=== PATIENT | male | born 1995 | race Caucasian/White ===

== ENCOUNTER 2016-10-18 10:32 | Emergency (ER) | payer MEDICAID, OTHER ==
[2016-10-18] MEDS ORDERED: DEXAMETHASONE 10 MG/ML VIAL PO STA (12:12)
== END 2016-10-18 12:25 | disposition home or self-care (01) ==
DX: M54.12 Radiculopathy, cervical region (principal); R03.0 Elevated blood-pressure reading, without diagnosis of hypertension; F17.200 Nicotine dependence, unspecified, uncomplicated

== ENCOUNTER 2016-12-15 11:11 | Emergency (ER) | payer MEDICAID ==
[2016-12-15 11:17] VITALS: BP 136/83
--- NOTE | 2016-12-15 12:15 | ED Physician Documentation ---
PD HPI HEENT - Stated complaint Stated Complaint: DENTAL PAIN - Chief complaint Chief Complaint: Heent - History obtained from History obtained from: Patient - History of Present Illness Timing - onset: Other (He has several teeth that are bothering him, the worst of which is the last molar, on the left maxilla. He denies facial swelling or fevers, does have a dental appointment but not for a few months.) Review of Systems Constitutional: denies: Fever, Chills Nose: denies: Rhinorrhea / runny nose, Congestion Cardiac: denies: Chest pain / pressure, Palpitations PD PAST MEDICAL HISTORY - Past Medical History Past Medical History: No - Past Surgical History Past Surgical History: No - Present Medications Home Medications: Ambulatory Orders Medication Instructions Recorded Confirmed Clindamycin [Cleocin] 300 mg PO Q6H 10 Days 12/15/16 HYDROcod/ACETAM 5/325 [[place] 5/325] 1 - 2 ea PO Q6H PRN #15 tablet 12/15/16 Ibuprofen [Motrin] 800 mg PO Q8H PRN #30 tablet 12/15/16 - Allergies Allergies/Adverse Reactions: Allergies Allergy/AdvReac Type Severity Reaction Status Date / Time No Known Drug Allergies Allergy Verified 10/18/16 10:35 - Social History Does the pt smoke?: Yes Smoking Status: Current every day smoker Does the pt drink ETOH?: Yes Does the pt have substance abuse?: No - Immunizations Immunizations are current?: Yes PD ED PE NORMAL - Vitals Vital signs reviewed: Yes - General General: Alert and oriented X 3, No acute distress - HEENT HEENT: Other (Generally poor but not terrible dentition, large cavities in the last maxillary molars on both sides without facial swelling or trismus.) - Neck Neck: Supple, no meningeal sign, No bony TTP - Neuro Neuro: Alert and oriented X 3, Normal speech - Psych Psych: Normal mood, Normal affect Results - Vitals Vitals: Vital Signs - 24 hr 12/15/16 11:14 Temperature 36.5 C Heart Rate 93 Respiratory 18 Rate Blood Pressure 136/83 H O2 Saturation 98 Oxygen O2 Source Room air PD MEDICAL DECISION MAKING - ED course ED course: The [place] prescription monitoring program was queried with regard to this patient. No concerning findings were found. Departure - Departure Disposition: 01 Home, Self Care Clinical Impression: Pain due to dental caries Condition: Good Record reviewed to determine appropriate education?: Yes Instructions: ED Tooth Pain Prescriptions: Clindamycin [Cleocin] 300 mg PO Q6H 10 Days Ibuprofen [Motrin] 800 mg PO Q8H PRN #30 tablet PRN Reason: PAIN &/OR FEVER HYDROcod/ACETAM 5/325 [[place] 5/325] 1 - 2 ea PO Q6H PRN #15 tablet PRN Reason: Pain Comments: It is very important that she follow-up with a dentist. When it comes to dental problems like yours, the emergency department can only offer a short- term solution to your long-term problem. A couple of low cost options for dental care include: [facility] in [place], calls [phone] for an appointment Or [facility] in [place], call [phone] for an appointment. Your blood pressure was elevated today on check into the emergency department. This does not mean that you have hypertension, it is a common phenomenon to come to the emergency department and have elevated blood pressure. I recommend that she see her primary care physician within the week to have it rechecked when you are feeling better. Do not drink or drive while taking narcotic pain medication. Note that many narcotic pain relievers also contain Tylenol/acetaminophen. Please ensure that your total dose of acetaminophen from all sources does not exceed 3 g (3000 mg) per day. You may get constipated while on this medication. Take a stool softener such as Colace twice a day while you are on it. Also add an [id number] laxative such as senna or MiraLAX on any day that you do not have a bowel movement. If you received a narcotic pain medication or sedative while in the emergency department, do not drive for the next 24 hours.
== END 2016-12-15 12:23 | disposition home or self-care (01) ==
LOC: ED 11:11
DX: K02.9 Dental caries, unspecified (principal); R03.0 Elevated blood-pressure reading, without diagnosis of hypertension
CPT/HCPCS: 99283

== ENCOUNTER 2017-06-17 17:20 | Emergency (ER) | payer MEDICAID ==
[2017-06-17] MEDS ORDERED: LIDOCAINE 1%-EPI 1:100000 20 ML MDV SUBQ STA (17:56)
--- NOTE | 2017-06-17 18:24 | ED Physician Documentation ---
History of Present Illness - Stated complaint Stated Complaint: ABCESS ON NECK - Chief complaint Chief Complaint: Wound - Additonal information Additional information: hx from pt 21 healthy male abscess R shoulder per pt waxes and wanes but never infected before Review of Systems Skin: reports: Lesions Immunocompromised: denies: Immunocompromised PD PAST MEDICAL HISTORY - Past Surgical History Past Surgical History: No - Present Medications Home Medications: Ambulatory Orders Medication Instructions Recorded Confirmed HYDROcod/ACETAM 5/325 [[place] 5/325] 1 - 2 ea PO Q6H PRN #15 tablet 12/15/1607/04 Ibuprofen [Motrin] 800 mg PO Q8H PRN #30 tablet 12/15/16 06/17/17 Cephalexin [Keflex] 500 mg PO Q6H #28 capsule 06/17/17 - Allergies Allergies/Adverse Reactions: Allergies Allergy/AdvReac Type Severity Reaction Status Date / Time No Known Drug Allergies Allergy Verified 06/17/17 17:24 - Social History Does the pt smoke?: Yes Smoking Status: Current every day smoker Does the pt drink ETOH?: Yes Does the pt have substance abuse?: No - Immunizations Immunizations are current?: Yes PD ED PE NORMAL - Vitals Vital signs reviewed: Yes - Cardiac Cardiac: RRR - Respiratory Respiratory: No respiratory distress, Clear bilaterally - Derm Derm: Other (approx 4 cm diameter abscess R shoulder) Results - Vitals Vitals: Vital Signs - 24 hr 06/17/17 17:22 Temperature 36.3 C L Heart Rate 80 Respiratory 16 Rate Blood Pressure 132/81 H O2 Saturation 98 Oxygen O2 Source Room air Procedures - Abscess I&D (location) shoulder Preparation: Betadine, Lidocaine 1%, With epi Incision: Incised with scalpel, Purulent drainage (approx 10 cc), Loculations broken, Packed, Culture obtained Other: Pt tolerated well, Dressing applied, Antibiotic prescribed Departure - Departure Disposition: Home, Self Care Clinical Impression: Infected sebaceous cyst Condition: Good Instructions: ED Cyst Sebaceous Infec IandD Follow-Up: Jono Sanches MD [Provider Admit Priv/Credential] - (after the infection has cleared for definitive removal) Prescriptions: Cephalexin [Keflex] 500 mg PO Q6H #28 capsule Comments: Motrin and tylenol for the pain Lave the bandage on for 2 days. If the infection is better at that time (no more redness or drainage) then pull out the packing and put on a new bandaid. If the wound is still red and/or draining see your PMD or come back to the ER for a packing change. Take the antibiotics as prescribed Follow up with the surgeons when the infection has cleared to have the cyst removed all together
[2017-06-17 18:35] VITALS: BP 114/86
== END 2017-06-17 18:38 | disposition home or self-care (01) ==
LOC: ED 17:20
DX: L02.413 Cutaneous abscess of right upper limb (principal); L72.3 Sebaceous cyst; F17.200 Nicotine dependence, unspecified, uncomplicated
CPT/HCPCS: 10060; 87070; 87205; 99282; 99283

== ENCOUNTER 2017-06-19 12:26 | Emergency (ER) | payer MEDICAID ==
[2017-06-19 12:40] VITALS: BP 126/82
--- NOTE | 2017-06-19 13:11 | ED Physician Documentation ---
History of Present Illness - Stated complaint Stated Complaint: WOUND CHECK - Chief complaint Chief Complaint: Wound - Additonal information Additional information: hx from pt 21 m wound recheck s/p I7D abscess 2 days ago feels better throbbing pain last took apap yesterday declines motrin today on keflex Review of Systems Constitutional: denies: Fever Skin: reports: Lesions PD PAST MEDICAL HISTORY - Past Surgical History Past Surgical History: No - Present Medications Home Medications: Ambulatory Orders Medication Instructions Recorded Confirmed HYDROcod/ACETAM 5/325 [[place] 5/325] 1 - 2 ea PO Q6H PRN #15 tablet 12/15/1609/01 Ibuprofen [Motrin] 800 mg PO Q8H PRN #30 tablet 12/15/16 06/19/17 Cephalexin [Keflex] 500 mg PO Q6H #28 capsule 06/17/17 06/19/17 - Allergies Allergies/Adverse Reactions: Allergies Allergy/AdvReac Type Severity Reaction Status Date / Time No Known Drug Allergies Allergy Verified 06/17/17 17:24 - Social History Does the pt smoke?: Yes Smoking Status: Current every day smoker Does the pt drink ETOH?: Yes Does the pt have substance abuse?: No - Immunizations Immunizations are current?: Yes PD ED PE NORMAL - Vitals Vital signs reviewed: Yes - Derm Derm: Other (much imporroves, approx 25% redness and size of first visit, repacked and applied dressing) Results - Vitals Vitals: Vital Signs - 24 hr 06/19/17 12:37 Temperature 36.6 C Heart Rate 71 Respiratory 18 Rate Blood Pressure 126/82 H O2 Saturation 98 Oxygen O2 Source Room air Departure - Departure Disposition: Home, Self Care Clinical Impression: Infected sebaceous cyst Condition: Good Instructions: ED Abscess IandD Comments: The wound culture is still being finalized So continue the keflex for now - the ER staff will call you if the culture indicates a need to change treatment. In two days you can pull the packing out. If there is not further redness or drainage just finish the antibiotics If the redness and drainage persist come back to the ER for another packing change
== END 2017-06-19 13:22 | disposition home or self-care (01) ==
LOC: ED 12:26
DX: L72.3 Sebaceous cyst (principal); F17.200 Nicotine dependence, unspecified, uncomplicated
CPT/HCPCS: 99283

== ENCOUNTER 2017-06-21 17:02 | Emergency (ER) | payer MEDICAID | END 2017-06-21 17:50 | disposition left against medical advice (07) | LOC: ED 17:02 | DX: Z53.21 Procedure and treatment not carried out due to patient leaving prior to being seen by health care provider (principal) ==

== ENCOUNTER 2017-11-17 08:40 | Emergency (ER) | payer MEDICAID ==
[2017-11-17 08:52] VITALS: BP 151/93
[2017-11-17] MEDS ORDERED: DEXAMETHASONE 10 MG/ML VIAL PO STA (09:12)
[2017-11-17] MEDS ORDERED: AMOXICILLIN 250 MG CAPSULE PO STA (09:16)
[2017-11-17] MEDS ORDERED: oxyCOD/ACETAMIN 5 MG/325 MG TABLET PO STA (09:17)
--- NOTE | 2017-11-17 09:19 | ED Physician Documentation ---
History of Present Illness - Stated complaint Stated Complaint: TOOTH PX - Chief complaint Chief Complaint: Heent - Additonal information Additional information: hx from pt 22 male fracture right lower molar a week ago inc pain and swelling called [facility] and no scheduled appt until end november Review of Systems Constitutional: denies: Fever Throat: reports: Dental pain / toothache Immunocompromised: denies: Immunocompromised PD PAST MEDICAL HISTORY - Past Surgical History Past Surgical History: No - Present Medications Home Medications: Ambulatory Orders Medication Instructions Recorded Confirmed Amoxicillin 500 mg PO Q8H #30 capsule 11/17/17 Ibuprofen [Motrin] 400 mg PO Q6H PRN #30 tablet 11/17/17 - Allergies Allergies/Adverse Reactions: Allergies Allergy/AdvReac Type Severity Reaction Status Date / Time No Known Drug Allergies Allergy Verified 06/17/17 17:24 - Social History Does the pt smoke?: Yes Smoking Status: Current every day smoker Does the pt drink ETOH?: Yes Does the pt have substance abuse?: No - Immunizations Immunizations are current?: Yes PD ED PE NORMAL - Vitals Vital signs reviewed: Yes - HEENT HEENT: Other (R lower molars with prior fillings, second molar with ant lat fracture with some exposed dentin adjacent to the filling, some gum swelling but no focal abscess to drain, slinght right sded sublungua swelling but not extending to neck and tongue not elevated) - Neck Neck: Supple, no meningeal sign - Cardiac Cardiac: RRR, No murmur - Respiratory Respiratory: No respiratory distress Results - Vitals Vitals: Vital Signs - 24 hr 11/17/17 08:48 Temperature 36.8 C Heart Rate 90 Respiratory 16 Rate Blood Pressure 151/93 H O2 Saturation 98 Oxygen O2 Source Room air Departure - Departure Disposition: Home, Self Care Clinical Impression: Dental infection Condition: Good Instructions: ED Tooth Pain Prescriptions: Amoxicillin 500 mg PO Q8H #30 capsule Ibuprofen [Motrin] 400 mg PO Q6H PRN #30 tablet PRN Reason: Pain Comments: The broken tooth has now become infected and it is starting to cause swelling under the jaw We have given you steroids to decrease the swelling and started antibiotics. But this needs to be seen by dental this week . Otherwise the infection could spread under your tongue and down your neck and cause airway problems. Please call [facility] tomorrow morning and advise the clinic that the ER felt this was a serious infection that needed dental care before the end of the month - if they cant see you, perhaps they can tell you what other clinics might be able to see you more expeditiously Take the antibiotics as prescribed. We gave your percocet in the ER to help manage the pain until the antibiotics and steroids can start working. If you are worse, especially in there is more swelling under you jaw, please come back to the ER right away
== END 2017-11-17 09:32 | disposition home or self-care (01) ==
LOC: ED 08:40
DX: K04.7 Periapical abscess without sinus (principal); F17.200 Nicotine dependence, unspecified, uncomplicated
CPT/HCPCS: 99283; A9270

== ENCOUNTER 2017-11-18 15:05 | Emergency (ER) | payer MEDICAID ==
[2017-11-18] MEDS ORDERED: SODIUM CHLORIDE 0.9% 1,000 ML IV ONE (15:20)
[2017-11-18] MEDS ORDERED: CLINDAMYCIN 900 MG/50 ML 50 ML IV ONE (15:20)
[2017-11-18] MEDS ORDERED: MORPHINE 10 MG/ML VIAL IVP STA (15:20)
[2017-11-18 15:23] VITALS: BP 154/101
--- NOTE | 2017-11-18 15:23 | ED Physician Documentation ---
History of Present Illness - Stated complaint Stated Complaint: TOOTH PX - History obtained from History obtained from: Patient - History of Present Illness Timing: Yesterday (He was seen yesterday for dental pain, treated with amoxicillin and ibuprofen. He has turned in the prescription but not yet filled it. He notes increased swelling and foul taste today. He is having difficulty opening his mouth.) Review of Systems Ten Systems: 10 systems reviewed and negative Constitutional: denies: Fever, Chills Cardiac: denies: Chest pain / pressure, Palpitations Respiratory: denies: Dyspnea, Cough PD PAST MEDICAL HISTORY - Past Medical History Past Medical History: No - Past Surgical History Past Surgical History: No - Present Medications Home Medications: Ambulatory Orders Medication Instructions Recorded Confirmed Amoxicillin 500 mg PO Q8H #30 capsule 11/17/17 Ibuprofen [Motrin] 400 mg PO Q6H PRN #30 tablet 11/17/17 - Allergies Allergies/Adverse Reactions: Allergies Allergy/AdvReac Type Severity Reaction Status Date / Time No Known Drug Allergies Allergy Verified 11/18/17 15:18 - Social History Does the pt smoke?: Yes Smoking Status: Current every day smoker Does the pt drink ETOH?: Yes Does the pt have substance abuse?: No - Family History Family history: reports: Non contributory - Immunizations Immunizations are current?: Yes PD ED PE NORMAL - Vitals Vital signs reviewed: Yes - General General: Alert and oriented X 3, No acute distress - HEENT HEENT: Other (The tender tooth in question is the last molar on the right mandible. He does have significant trismus, able to open the jaws to just over 2 cm between the incisors. He does have slight brawny edema in the sublingual area without elevation of the tongue.) - Neck Neck: Supple, no meningeal sign, No bony TTP - Cardiac Cardiac: RRR, No murmur - Respiratory Respiratory: No respiratory distress, Clear bilaterally - Abdomen Abdomen: Non tender, Non distended - Back Back: No CVA TTP, No spinal TTP - Derm Derm: Normal color, Warm and dry - Extremities Extremities: No edema, No calf tenderness / cord - Neuro Neuro: Alert and oriented X 3, Normal speech - Psych Psych: Normal mood, Normal affect Results - Vitals Vitals: Vital Signs - 24 hr 11/18/17 15:20 Temperature 36.9 C Heart Rate 98 Respiratory 16 Rate Blood Pressure 154/101 H O2 Saturation 99 Oxygen O2 Source Room air - Labs Labs: Laboratory Tests 11/18/17 11/18/17 15:30 15:30 WBC 24.1 H RBC 4.61 L Hgb 14.0 Hct 40.9 L MCV 88.9 MCH 30.3 MCHC 34.1 RDW 12.8 Plt Count 273 MPV 6.5 L Neut # (Auto) Not Reportable Lymph # (Auto) Not Reportable Beckham # (Auto) Not Reportable Eos # (Auto) Not Reportable Baso # (Auto) Not Reportable Absolute Nucleated RBC Not Reportable Total Counted 100 Band Neuts % (Manual) 0 Abnorm Lymph % (Manual) 0 Nucleated RBC % Not Reportable Neutrophils # (Manual) 20.5 H Lymphocytes # (Manual) 1.4 L Monocytes # (Manual) 2.2 H Eosinophils # (Manual) 0.0 Basophils # (Manual) 0.0 Manual Slide Review Indicated Platelet Estimate NORMAL (130-450,000) Platelet Morphology NORMAL APPEARANCE RBC Morph Micro Appear NORMAL APPEARANCE Sodium 136 Potassium 3.3 L Chloride 101 Carbon Dioxide 24 Anion Gap 11.0 BUN 11 Creatinine 0.7 Estimated GFR (MDRD) 140 Glucose 101 H Calcium 9.8 - Rads (name of study) CT Face Radiology: EMP read contemporaneously (1. Periapical lucency surrounding the right mandibular tooth #29. This is concerning for periapical abscess. 2. Teeth numbers 1, 16, 17, and 32 are absent, likely prior extraction. 3. soft tissue abscess adjacent to the right mandibular tooth with a periapical abscess (Tooth #29), with the soft tissue abscess involving the right submandibular space, right floor of mouth, and right sublingual space, maximally measuring 2.4 x 1.9 x 3.5 cm (transverse by craniocaudal) series 5 image 46, series 7 image 76). As suggested by the provided history, this is concerning for developing Valentin angina. 4. Mild deviation of the oropharyngeal airway to the left, with no significant narrowing at this time. 5. Prominent right-sided lymph nodes are seen, these are likely reactive, and include 1B node measuring 1.5 x 1.0 and image (series 5 image 8), a right level IB node measuring 1.6 x 1.0 cm (series 5 image 16) ) PD MEDICAL DECISION MAKING - ED course ED course: This is a young man with a dental infection and evidence of early Valentin's angina on exam and CT. I discussed the case by phone with Dr. Adrián Abdi, oral maxillofacial surgeon at 3:55 PM who will be in after his office hours to evaluate him and likely taken to the operating room tonight and request that I speak with the hospitalist for admission and they were paged for consult at 4: [address] Abdi wanted him to have Unasyn every 6 and a dose of Decadron here. The patient has been n.p.o. for liquids since noon and solids since yesterday. However at about 430 the patient called me into the room and wanted to leave AGAINST MEDICAL ADVICE. I have a long discussion with him including the risks of leaving which include airway compromise which might cause or disability. He is understanding of this he is feeling very anxious. Offered to give him an anxiolytic which he declined. He just wants to leave and go see his dentist tomorrow. I made it clear to him that most outpatient dentist would not potentially treat such a significant etiology in the office and he can return anytime for further evaluation and treatment. Dr. Abdi was updated by phone. Departure - Departure Disposition: Against Medical Advice Clinical Impression: Valentin's angina Condition: Serious Discharge Date/Time: 11/18/17 17:01
[2017-11-18] MEDS ORDERED: IOPAMIDOL-300 100 ML VIAL ONE (15:37)
[2017-11-18 15:43] LABS: BASOPHILS % (AUTO) 0.3 %; LYMPHOCYTES % (AUTO) 9.1 %; MEAN CORPUSCULAR HEMOGLOBIN 30.3 pg (27.0-31.0); MEAN CORPUSCULAR HGB CONC 34.1 g/dL (32.0-36.0); MEAN CORPUSCULAR VOLUME 88.9 fL (80.0-94.0); MEAN PLATELET VOLUME 6.5 fL (7.4-11.4); NEUTROPHILS % (AUTO) 80.6 %; PLT - PLATELET COUNT 273 10^3/uL (130-450); RED BLOOD COUNT 4.61 10^6/uL (4.70-6.10); RED CELL DISTRIBUTION WIDTH 12.8 % (12.0-15.0); WHITE BLOOD COUNT 24.1 x10^3/uL (4.8-10.8)
[2017-11-18 15:47] LABS: ABNORMAL LYMPHS % (MANUAL) 0 %; BAND NEUTROPHILS % (MANUAL) 0 %
[2017-11-18 15:49] LABS: CALCIUM 9.8 mg/dL (8.5-10.3); CREATININE 0.7 mg/dL (0.6-1.2)
[2017-11-18] MEDS ORDERED: IOPAMIDOL-300 100 ML VIAL IVP ONE (15:56)
[2017-11-18] MEDS ORDERED: DEXAMETHASONE 10 MG/ML VIAL IVP STA (15:59)
[2017-11-18] MEDS ORDERED: AMPICILLIN/SULBACTAM 3 GM in SODIUM CHLORIDE 0.9% MINIBAG 100 ML IV STA (16:00)
--- NOTE | 2017-11-18 16:19 | CT Report ---
EXAM: CT MAXILLOFACIAL WITH CONTRAST EXAM DATE: 11/18/2017 04:00 PM. CLINICAL HISTORY: Dental abscess with trismus, possible ludwigs angina. COMPARISONS: None. TECHNIQUE: Thin-section axial images were acquired of the face after administration of intravenous co ntrast. Post-processing: Coronal and sagittal reformats. Other: None. IV contrast: 80 cc Isovue-300. In accordance with CT protocol optimization, one or more of the following dose reduction techniques w ere utilized for this exam: automated exposure control, adjustment of mA and/or KV based on patient s ize, or use of iterative reconstructive technique. FINDINGS: Orbits:Symmetric and unremarkable. Dentition: There is a periapical lucency surrounding the right mandibular tooth #29. Teeth numbers 1, 16, 17, and 32 are absent, likely prior extraction. Soft Tissue: There is a soft tissue abscess adjacent to the right mandibular tooth with a periapical abscess, involving the right submandibular space, right floor of mouth, and right sublingual space, m aximally measuring 2.4 x 1.9 x 3.5 cm (transverse by craniocaudal) (series 5 image 46, series 7 image 76). There is mild deviation of the oropharyngeal airway to the left, with no significant narrowing at this time. Prominent right-sided lymph nodes are seen, these are likely reactive, and include 1B node measuring 1.5 x 1.0 and image (series 5 image 8), a right level IB node measuring 1.6 x 1.0 cm (series 5 image 16) Bones: No fracture or bone lesion. Temporomandibular Joints: The temporomandibular joints are symmetric and normally located. Sinuses: Normal. No mucosal thickening or fluid levels. Glands: The parotid and submandibular glands are unremarkable. Other: None. IMPRESSION: 1. Periapical lucency surrounding the right mandibular tooth #29. This is concerning for periapical a bscess. 2. Teeth numbers 1, 16, 17, and 32 are absent, likely prior extraction. 3. soft tissue abscess adjacent to the right mandibular tooth with a periapical abscess (Tooth #29), with the soft tissue abscess involving the right submandibular space, right floor of mouth, and right sublingual space, maximally measuring 2.4 x 1.9 x 3.5 cm (transverse by craniocaudal) (series 5 imag e 46, series 7 image 76). As suggested by the provided history, this is concerning for developing Marcus wig angina. 4. Mild deviation of the oropharyngeal airway to the left, with no significant narrowing at this time . 5. Prominent right-sided lymph nodes are seen, these are likely reactive, and include 1B node measuri ng 1.5 x 1.0 and image (series 5 image 8), a right level IB node measuring 1.6 x 1.0 cm (series 5 hector ge 16) Findings were discussed Dr. Leary at 4:12 PM on 11/18/2017 [facility] Referring Provider Line: [phone] SITE ID: [id number]
[2017-11-18 16:54] LABS: LYMPHOCYTES # (MANUAL) 1.4 10^3/uL (1.5-3.5); LYMPHOCYTES % (MANUAL) 6 %; MONOCYTES # (MANUAL) 2.2 10^3/uL (0.0-1.0); NEUTROPHILS # (MANUAL) 20.5 10^3/uL (1.5-6.6); NEUTROPHILS % (MANUAL) 85 %
[2017-11-18 16:55] LABS: PLATELET ESTIMATE, MANUAL NORMAL (130-450,000) (NORMAL); PLATELET MORPHOLOGY NORMAL APPEARANCE (NORMAL); RBC MORPHOLOGY (MULTIPLE) NORMAL APPEARANCE (NORMAL)
--- NOTE | 2017-11-18 20:00 | ED Physician Documentation ---
ED Addendum - Addendum Addendum: 11/18/17 19:59 unscheduled return visit - chart accessed for follow up and educational purposes
== END 2017-11-18 17:01 | disposition left against medical advice (07) ==
LOC: ED 15:05
DX: K12.2 Cellulitis and abscess of mouth (principal); K04.7 Periapical abscess without sinus; F17.200 Nicotine dependence, unspecified, uncomplicated; Z53.21 Procedure and treatment not carried out due to patient leaving prior to being seen by health care provider
CPT/HCPCS: 36415; 70487; 80048; 85025; 96365; 96375; 99283; 99284; Q9967

== ENCOUNTER 2018-02-12 19:27 | Emergency (ER) | payer MEDICAID | END 2018-02-12 19:45 | disposition left against medical advice (07) | LOC: ED 19:27 | DX: Z53.21 Procedure and treatment not carried out due to patient leaving prior to being seen by health care provider (principal) ==

== ENCOUNTER 2018-09-29 02:59 | Emergency (ER) | payer MEDICAID ==
[2018-09-29 03:06] VITALS: BP 142/89
--- NOTE | 2018-09-29 03:15 | ED Physician Documentation ---
PD HPI HEENT - Stated complaint Stated Complaint: EAR PAIN - Chief complaint Chief Complaint: Wound - History obtained from History obtained from: Patient - History of Present Illness Timing - onset: How many weeks ago (2 weeks of lump behind left ear and it has gotten bigger and tender the past 1-2 days. Also with some congestion and sinus pressure and now left ear hearing is less and ear hurting.) Timing - duration: Days Timing - details: Gradual onset Location: Left ear, Sinuses, Nose. No: Throat Worsens: Swalllowing, Other (palpation) Associated symptoms: Congestion. No: Fever, Swollen nodes, Cough Similar symptoms before: Has not had sx before Recently seen: Not recently seen Review of Systems Constitutional: denies: Fever, Chills, Myalgias Throat: denies: Sore throat PD PAST MEDICAL HISTORY - Past Medical History Past Medical History: No - Past Surgical History Past Surgical History: No - Present Medications Home Medications: Ambulatory Orders Medication Instructions Recorded Confirmed Cephalexin [Keflex] 500 mg PO Q6H #24 capsule 09/29/18 Dexamethasone [Decadron] 4 mg PO DAILY #5 tablet 09/29/18 Hydrocodone/Acetaminophen [[place] 1 each PO Q6H PRN #15 tablet 09/29/18 5-325 Tablet] - Allergies Allergies/Adverse Reactions: Allergies Allergy/AdvReac Type Severity Reaction Status Date / Time No Known Drug Allergies Allergy Verified 09/29/18 03:12 - Social History Does the pt smoke?: Yes Smoking Status: Current every day smoker Does the pt drink ETOH?: Yes ETOH Use: Beer Does the pt have substance abuse?: No - Immunizations Immunizations are current?: Yes - POLST Patient has POLST: No PD ED PE NORMAL - Vitals Vital signs reviewed: Yes - General General: Alert and oriented X 3, Well developed/nourished, Other (anxious and in pain) - HEENT HEENT: Pharynx benign. No: Ears normal (right is good; left with redness and fullness of the TM. The canal appears okay. The postauricular area/lower with 1 1/2 cm rounded fluctuant area c/w cyst. There is some redness to it. ) - Neck Neck: Supple, no meningeal sign, No adenopathy - Cardiac Cardiac: RRR, No murmur - Respiratory Respiratory: Clear bilaterally Results - Vitals Vitals: Vital Signs - 24 hr 09/29/18 03:03 Temperature 36.1 C L Heart Rate 99 Respiratory 18 Rate Blood Pressure 142/89 H O2 Saturation 100 Oxygen O2 Source Room air Procedures - Abscess I&D (location) left postauricular area Preparation: Lidocaine 1%, With epi Incision: Incised with scalpel, Purulent drainage (some purulence, and some thicker material c/w sebacium.). No: Packed, Culture obtained Other: Pt tolerated well, Dressing applied, Antibiotic prescribed PD MEDICAL DECISION MAKING - ED course Complexity details: considered differential, d/w patient Departure - Departure Disposition: 01 Home, Self Care Clinical Impression: Infected cyst of skin Left otitis media Qualifiers: Otitis media type: suppurative Chronicity: acute Recurrence: non-recurrent Spontaneous tympanic membrane rupture: without spontaneous rupture Qualified Code(s): H66.002 - Acute suppurative otitis media without spontaneous rupture of ear drum, left ear Condition: Stable Record reviewed to determine appropriate education?: Yes Instructions: ED Otitis Media Acute Adult, ED Cyst Sebaceous Infec IandD Prescriptions: Cephalexin [Keflex] 500 mg PO Q6H #24 capsule Dexamethasone [Decadron] 4 mg PO DAILY #5 tablet Hydrocodone/Acetaminophen [[place] 5-325 Tablet] 1 each PO Q6H PRN #15 tablet PRN Reason: Pain Comments: Warm moist towels to the cyst area a few times a day for 1-2 days to try to promote drainage still from it. Cephalexin antibiotic as directed for the ear infection and the infected cyst. Decadron steroid for inflammation. Add Tylenol or hydrocodone if needed for pain. Recheck if not improving over the next few days for the ear pain and also for the swelling of the cyst. Discharge Date/Time: 09/29/18 03:52
[2018-09-29] MEDS ORDERED: cephALEXin 250 MG CAPSULE PO STA (03:25)
[2018-09-29] MEDS ORDERED: diphenhydrAMINE 25 MG CAPSULE PO STA (03:25)
[2018-09-29] MEDS ORDERED: DEXAMETHASONE 10 MG/ML VIAL PO STA (03:25)
[2018-09-29] MEDS ORDERED: HYDROcod/ACETAM 5/325 MG TABLET PO STA (03:25)
[2018-09-29] MEDS ORDERED: CHERRY SYRUP 10 ML UDC PO ONE (03:25)
== END 2018-09-29 03:52 | disposition home or self-care (01) ==
LOC: ED 02:59
DX: L02.01 Cutaneous abscess of face (principal); L72.9 Follicular cyst of the skin and subcutaneous tissue, unspecified; H66.002 Acute suppurative otitis media without spontaneous rupture of ear drum, left ear; F17.200 Nicotine dependence, unspecified, uncomplicated
CPT/HCPCS: 10060; 99283; A9270

== ENCOUNTER 2020-05-04 19:13 | Emergency (ER) | payer OTHER, MEDICAID ==
[2020-05-04 19:25] VITALS: BP 133/87
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
--- NOTE | 2020-05-04 20:11 | XRAY Report ---
PROCEDURE: Ankle 3 View LT INDICATIONS: pain TECHNIQUE: 3 views of the ankle were acquired. COMPARISON: None. FINDINGS: Bones: No fractures or dislocations. Ankle mortise is normally aligned. No suspicious bony lesions . Soft tissues: No tibiotalar joint effusion. Achilles tendon appears normal. IMPRESSION: Left ankle without acute radiographic abnormalities. If there is persistent clinical concern for a radiographically occult fracture, recommend immobilizat ion and repeat imaging in 10 to 14 days. Reviewed by: Avila Caputo MD on 05/04/2020 8:10 PM PST Approved by: Avila Caputo MD on 05/04/2020 8:10 PM PST Station ID: [id number]
== END 2020-05-04 20:34 | disposition home or self-care (01) ==
LOC: ED 19:13
DX: S99.912A Unspecified injury of left ankle, initial encounter (principal); W01.0XXA Fall on same level from slipping, tripping and stumbling without subsequent striking against object, initial encounter; X50.1XXA Overexertion from prolonged static or awkward postures, initial encounter; Y92.129 Unspecified place in nursing home as the place of occurrence of the external cause; Y93.89 Activity, other specified; Y99.0 Civilian activity done for income or pay; F17.200 Nicotine dependence, unspecified, uncomplicated
CPT/HCPCS: 1040M; 73610; 99283

== ENCOUNTER 2020-07-06 19:13 | Emergency (ER) | payer MEDICAID ==
[2020-07-06 19:27] VITALS: BP 128/93
== END 2020-07-06 22:02 | disposition left against medical advice (07) ==
LOC: ED 19:13
DX: Z53.21 Procedure and treatment not carried out due to patient leaving prior to being seen by health care provider (principal)

== ENCOUNTER 2020-07-06 22:15 | Emergency (ER) | payer MEDICAID ==
[2020-07-06 22:22] VITALS: BP 147/89
== END 2020-07-07 00:17 | disposition left against medical advice (07) ==
LOC: ED 22:15
DX: Z53.21 Procedure and treatment not carried out due to patient leaving prior to being seen by health care provider (principal)

== ENCOUNTER 2020-07-07 04:08 | Emergency (ER) | payer MEDICAID ==
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
[2020-07-07 04:18] VITALS: BP 120/73
--- NOTE | 2020-07-07 07:24 | CT Report ---
PROCEDURE: MAXILLOFACIAL WO INDICATIONS: nasal injury TECHNIQUE: Noncontrast 1.5 mm thick axial images acquired from the mandible through the frontal sinuses, with co alexandra and sagittal reformatting. For radiation dose reduction, the following was used: automated ex posure control, adjustment of mA and/or kV according to patient size. COMPARISON: Facial bone CT, 11/18/2017. FINDINGS: Image quality: Excellent. Bones and teeth: Bilateral comminuted nasal bone fractures with mild displacement. There is a nondis placed left zygomatic arch fracture. Orbital guzmán are intact. Sinus guzmán show no fracture or defor mity. Nasal septum is intact. Visualized portions of the mandible demonstrate no fractures or sublu xation. Pterygoid plates are intact. Visualized portions of the skull base and auditory canals are intact. Sinuses: There is mild maxillary sinus mucosal thickening in axial sinuses bilaterally. Mastoid air cells are aerated. Soft tissues: Mild soft tissue swelling in the nasal, prefrontal, premaxillary and perimandibular are a consistent with soft tissue contusion. No soft tissue masses, or fluid collections. No enlarged ly mph nodes. No soft tissue lacerations or debris. Vascular: Visualized vascular structures appear normal in the absence of contrast. Bony vascular fo ramina and canals are intact. IMPRESSION: 1. Mildly displaced, comminuted nasal bone fractures bilaterally. 2. Nondisplaced left zygomatic arch fracture. 3. Mild maxillary sinus mucosal thickening bilaterally. No significant discrepancy with the preliminary interpretation. Reviewed by: Roland Abrams MD on 07/07/2020 7:22 AM [facility] Approved by: Roland Abrams MD on 07/07/2020 7:22 AM [facility] Station ID: [id number]
== END 2020-07-07 06:40 | disposition home or self-care (01) ==
LOC: ED 04:08
DX: S02.2XXA Fracture of nasal bones, initial encounter for closed fracture (principal); S00.432A Contusion of left ear, initial encounter; Y04.0XXA Assault by unarmed brawl or fight, initial encounter; F17.200 Nicotine dependence, unspecified, uncomplicated
CPT/HCPCS: 12011; 99282; 99284

== ENCOUNTER 2020-07-11 02:13 | Emergency (ER) | payer MEDICAID ==
[2020-07-11 02:34] VITALS: BP 136/94
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
== END 2020-07-11 02:56 | disposition home or self-care (01) ==
LOC: ED 02:13
DX: S02.2XXA Fracture of nasal bones, initial encounter for closed fracture (principal); Y04.8XXA Assault by other bodily force, initial encounter; R04.0 Epistaxis; F17.200 Nicotine dependence, unspecified, uncomplicated
CPT/HCPCS: 99281; 99282

== ENCOUNTER 2020-12-18 20:13 | Emergency (ER) | payer MEDICAID ==
[2020-12-18] MEDS ORDERED: TETANUS/DIPHTHERIA/PERTUSSIS 0.5 ML SYRINGE IM ONE (20:59)
[2020-12-18] MEDS ORDERED: BUFFERED LIDOCAINE 10 ML SYRINGE SUBQ STA (20:59)
[2020-12-18] MEDS ORDERED: BACITRACIN ZINC OINT 1 PACKET TOP STA (21:00)
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
[2020-12-18 21:29] VITALS: BP 150/101
== END 2020-12-18 21:15 | disposition home or self-care (01) ==
LOC: ED 20:13
DX: S61.210A Laceration without foreign body of right index finger without damage to nail, initial encounter (principal); W01.110A Fall on same level from slipping, tripping and stumbling with subsequent striking against sharp glass, initial encounter; F17.200 Nicotine dependence, unspecified, uncomplicated; Z23 Encounter for immunization
CPT/HCPCS: 12001; 90471; 90715; 99282; 99283; A9270

== ENCOUNTER 2020-12-19 07:33 | Emergency (ER) | payer MEDICAID ==
[2020-12-19 07:47] VITALS: BP 133/76
== END 2020-12-19 08:59 | disposition left against medical advice (07) ==
LOC: ED 07:33
DX: Z53.21 Procedure and treatment not carried out due to patient leaving prior to being seen by health care provider (principal)

== ENCOUNTER 2020-12-25 12:07 | Emergency (ER) | payer MEDICAID ==
[2020-12-25 12:16] VITALS: BP 125/88
[2020-12-25] MEDS ORDERED: BACITRACIN ZINC OINT 1 PACKET TOP STA (12:27)
--- NOTE | 2020-12-25 12:29 | ED Physician Documentation ---
PD HPI WOUND RECHECK - Stated complaint Stated Complaint: STITCH REMOVEL - Chief complaint Chief Complaint: Ext Problem - Histroy obtained from History obtained from: Patient - History of Present Illness Pain level max: 0 Pain level now: 0 - Additional information Additional information: 25-year-old male presents to the emergency department with a right index finger laceration that was repaired about a week ago. Here for suture removal. No complications. No redness, swelling, drainage, fever. No pain Review of Systems Constitutional: denies: Fever PD PAST MEDICAL HISTORY - Past Medical History Past Medical History: No - Past Surgical History Past Surgical History: No - Present Medications Home Medications: Ambulatory Orders Medication Instructions Recorded Confirmed No Known Home Medications 07/07/20 12/25/20 - Allergies Allergies/Adverse Reactions: Allergies Allergy/AdvReac Type Severity Reaction Status Date / Time No Known Drug Allergies Allergy Verified 12/19/20 07:45 - Social History Does the pt smoke?: Yes Smoking Status: Current every day smoker Does the pt drink ETOH?: Yes Does the pt have substance abuse?: No - Immunizations Immunizations are current?: Yes Immunizations: TDAP current <10years - POLST Patient has POLST: No PD ED PE NORMAL - Vitals Vital signs reviewed: Yes - General General: Alert and oriented X 3, No acute distress - Derm Derm: Warm and dry - Extremities Extremities: Other (Right index finger with sutures in place on the mid phalanx. Dorsal aspect. Neurovascular intact. Full range of motion. No evidence of infection) Results - Vitals Vitals: Vital Signs - 24 hr 12/25/20 12:14 Temperature 36.9 C Heart Rate 107 H Respiratory 18 Rate Blood Pressure 125/88 H O2 Saturation 95 Oxygen O2 Source Room air Procedures - Suture/staple Removal (location) R index finger Suture/staple removal: # sutures (all), No complications PD MEDICAL DECISION MAKING - ED course Complexity details: considered differential, d/w patient ED course: Sutures removed. No complication. Warnings of infection and instructions on wound care given at bedside. Also counseled on how to minimize scarring. This document was made in part using voice recognition software. While efforts are made to proofread this document, sound alike and grammatical errors may occur. Departure - Departure Disposition: 01 Home, Self Care Clinical Impression: Visit for suture removal Condition: Good Instructions: ED Wound Check Sutr Remove No Infec Follow-Up: your,doctor as needed [Other] Comments: Keep the wound clean. Return if you worsen. All the sutures are removed today and there are no signs of infection.
== END 2020-12-25 12:34 | disposition home or self-care (01) ==
LOC: ED 12:07
DX: S61.210D Laceration without foreign body of right index finger without damage to nail, subsequent encounter (principal); X58.XXXD Exposure to other specified factors, subsequent encounter; F17.200 Nicotine dependence, unspecified, uncomplicated
CPT/HCPCS: 99282; A9270

== ENCOUNTER 2021-01-29 14:44 | Emergency (ER) | payer MEDICAID ==
[2021-01-29 15:23] VITALS: BP 148/77
--- NOTE | 2021-01-29 15:27 | ED Physician Documentation ---
History of Present Illness - Stated complaint Stated Complaint: C+ EXPOSURE - Chief complaint Chief Complaint: General - History obtained from History obtained from: Patient - History of Present Illness Pain level max: 0 Pain level now: 0 - Additonal information Additional information: Patient is a 25-year-old male, unvaccinated for Covid. He states that a coworker was exposed to Covid and his boss is sent him here for testing. Patient is fully asymptomatic. Nothing makes it better or worse. Review of Systems Constitutional: denies: Fever Nose: denies: Rhinorrhea / runny nose, Congestion Respiratory: denies: Dyspnea, Cough, Wheezing PD PAST MEDICAL HISTORY - Past Medical History Past Medical History: No - Past Surgical History Past Surgical History: No - Present Medications Home Medications: Ambulatory Orders Medication Instructions Recorded Confirmed No Known Home Medications 07/07/20 12/25/20 - Allergies Allergies/Adverse Reactions: Allergies Allergy/AdvReac Type Severity Reaction Status Date / Time No Known Drug Allergies Allergy Verified 01/29/21 15:23 - Social History Does the pt smoke?: Yes Smoking Status: Current every day smoker Does the pt drink ETOH?: Yes Does the pt have substance abuse?: No - Immunizations Immunizations are current?: Yes Immunizations: TDAP current <10years - POLST Patient has POLST: No PD ED PE NORMAL - Vitals Vital signs reviewed: Yes - General General: Alert and oriented X 3, No acute distress, Well developed/nourished - HEENT HEENT: Moist mucous membranes - Neck Neck: Supple, no meningeal sign - Cardiac Cardiac: RRR - Respiratory Respiratory: No respiratory distress, Clear bilaterally - Derm Derm: Warm and dry - Neuro Neuro: Alert and oriented X 3 - Psych Psych: Normal mood, Normal affect Results - Vitals Vitals: Vital Signs - 24 hr 01/29/21 15:21 Temperature 36.7 C Heart Rate 105 H Respiratory 16 Rate Blood Pressure 148/77 H O2 Saturation 98 Oxygen O2 Source Room air PD MEDICAL DECISION MAKING - ED course Complexity details: considered differential, d/w patient ED course: Covid testing performed. Results will be available for the patient tomorrow. He will quarantine until then. Patient counseled regarding signs and symptoms for which I believe and urgent re-evaluation would be necessary. Patient with good understanding of and agreement to plan and is comfortable going home at this time This document was made in part using voice recognition software. While efforts are made to proofread this document, sound alike and grammatical errors may occur. Departure - Departure Disposition: 01 Home, Self Care Clinical Impression: Exposure to COVID-19 virus Condition: Good Instructions: COVID-19 [facility], COVID-19 [facility] Department Statement Follow-Up: your,doctor in 1 week [Other] Comments: You have a Covid test pending today. You need to self quarantine until your test is negative. Please stay away from any other individuals. If family and/or friends need Covid test, they can call the hospital to set up a screening Covid test during the week. Additionally there are now [id number] Covid tests and many of the pharmacies locally will perform Covid tests as well.
== END 2021-01-29 15:39 | disposition home or self-care (01) ==
LOC: ED 14:44
DX: Z03.818 Encounter for observation for suspected exposure to other biological agents ruled out (principal); F17.200 Nicotine dependence, unspecified, uncomplicated
CPT/HCPCS: 99283

== ENCOUNTER 2021-02-02 11:54 | Emergency (ER) | payer MEDICAID ==
[2021-02-02 12:19] VITALS: BP 116/77
--- NOTE | 2021-02-02 12:33 | ED Physician Documentation ---
History of Present Illness - Stated complaint Stated Complaint: SWOLLEN LT HAND - Chief complaint Chief Complaint: Ext Problem - Additonal information Additional information: 25-year-old male presents emergency department for evaluation of left hand swelling. 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 He reports going to bed last night but woke up this morning with swelling in the left hand. He has pain near the fourth MCP joint. He denies any known obvious trauma however he clearly has hands that are callused and have lots of previous trauma. There are no fevers. No open sores or lesions. No erythema, red str eaking. He is able to move the hand normally. Review of Systems Constitutional: reports: Reviewed and negative Nose: reports: Reviewed and negative Throat: reports: Reviewed and negative Cardiac: reports: Reviewed and negative Skin: denies: Rash, Lesions Musculoskeletal: reports: Extremity pain (Left hand) Neurologic: reports: Reviewed and negative PD PAST MEDICAL HISTORY - Past Surgical History Past Surgical History: No - Present Medications Home Medications: Ambulatory Orders Medication Instructions Recorded Confirmed No Known Home Medications 07/07/20 12/25/20 - Allergies Allergies/Adverse Reactions: Allergies Allergy/AdvReac Type Severity Reaction Status Date / Time No Known Drug Allergies Allergy Verified 02/02/21 12:16 - Social History Does the pt smoke?: Yes Smoking Status: Current every day smoker Does the pt drink ETOH?: Yes Does the pt have substance abuse?: No - Immunizations Immunizations are current?: Yes Immunizations: TDAP current <10years - POLST Patient has POLST: No PD ED PE EXPANDED - General General: Alert, No acute distress - Extremities Extremities: Left hand (Mild swelling on the dorsum of the left hand without erythema. No open sores or lesions. Point tenderness at the base of the MCP without obvious deformity. 2+ radial pulse. Normal grasp and extension of the fingers in all planes.) Results - Vitals Vitals: Vital Signs - 24 hr 02/02/21 12:16 Temperature 36.5 C Heart Rate 90 Respiratory 16 Rate Blood Pressure 116/77 O2 Saturation 99 Oxygen O2 Source Room air - Rads (name of study) left hand Radiology: EMP read indepedently (no acute fracture or dislocation) PD MEDICAL DECISION MAKING - ED course Complexity details: reviewed results, considered differential, d/w patient ED course: 25-year-old male presents emergency department for evaluation of acute left hand swelling. 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 Woke up this morning with swelling on the dorsum of the hand and some tenderness just over the proximal fourth metacarpal ring finger. There is no erythema or open sores or lesions to suggest cellulitis. X-ray does not show any fracture or dislocation. I suspect he most likely has a contusion. Will recommend ice and ibuprofen. Emergent return precautions discussed for concerns of infection or worsening pain. Departure - Departure Disposition: 01 Home, Self Care Clinical Impression: Left hand pain Contusion Qualifiers: Encounter type: initial encounter Contusion area: hand Laterality: left Qualified Code(s): S60.222A - Contusion of left hand, initial encounter Condition: Stable Record reviewed to determine appropriate education?: Yes Instructions: ED Contusion Upper Extr Ch Comments: Francis you are seen in the ER today for swelling of the left hand. The x-ray does not show any fractures or broken bones. You do not have any skin changes or sores to suggest a bite or infection. I suspect that you have likely bruised or contused your hand while at work. You can ice the hand as needed for discomfort or take Tylenol and ibuprofen. Would expect the swelling and discomfort to improve over the next 5 to 7 days. If not improving or worsening before then please return to the ER for second look.
--- NOTE | 2021-02-02 13:43 | XRAY Report ---
PROCEDURE: Hand 3 View LT INDICATIONS: swelling dorsum of hand at 4th MCP with pain TECHNIQUE: 3 views of the hand(s) acquired. COMPARISON: None FINDINGS: Bones: No fractures or dislocations. No suspicious bony lesions. Soft tissues: Dorsal soft tissue swelling noted. IMPRESSION: Dorsal soft tissue swelling without fracture or foreign body Reviewed by: Titus Hill MD on 02/02/2021 12:41 PM [place] Approved by: Titus Hill MD on 02/02/2021 12:41 PM [place] Station ID: [id number]
== END 2021-02-02 13:18 | disposition home or self-care (01) ==
LOC: ED 11:54
DX: S60.222A Contusion of left hand, initial encounter (principal); X58.XXXA Exposure to other specified factors, initial encounter; F17.200 Nicotine dependence, unspecified, uncomplicated
CPT/HCPCS: 99282; 99283

== ENCOUNTER 2021-02-25 18:46 | Emergency (ER) | payer MEDICAID ==
--- NOTE | 2021-02-25 19:40 | ED Physician Documentation ---
History of Present Illness - Stated complaint Stated Complaint: LEFT ARM PX - Chief complaint Chief Complaint: Trauma Ext - Additonal information Additional information: 25-year-old male presents the emergency department for evaluation of left upper chest wall and left shoulder pain. He reports that when he was cutting a tree about 1 week ago a larger branch came loose and struck him in the chest and shoulder. He has been having pain in this area since and sometimes feels short of breath. There has been no hemoptysis or fevers. He has taken Tylenol and ibuprofen with some relief of pain. Review of Systems Constitutional: denies: Fever, Chills Eyes: reports: Reviewed and negative Ears: reports: Loss of hearing Throat: reports: Reviewed and negative Cardiac: reports: Other (Chest wall pain) Respiratory: reports: Reviewed and negative GI: reports: Reviewed and negative : reports: Reviewed and negative Musculoskeletal: reports: Joint pain (Left shoulder) PD PAST MEDICAL HISTORY - Past Medical History Past Medical History: No - Past Surgical History Past Surgical History: No - Present Medications Home Medications: Ambulatory Orders Medication Instructions Recorded Confirmed No Known Home Medications 07/07/20 02/25/21 - Allergies Allergies/Adverse Reactions: Allergies Allergy/AdvReac Type Severity Reaction Status Date / Time No Known Drug Allergies Allergy Verified 02/25/21 18:52 - Social History Does the pt smoke?: Yes Smoking Status: Current every day smoker Does the pt drink ETOH?: Yes ETOH Use: Beer Does the pt have substance abuse?: No - Immunizations Immunizations are current?: Yes Immunizations: TDAP current <10years - POLST Patient has POLST: No PD ED PE NORMAL - General General: Alert and oriented X 3, No acute distress - HEENT HEENT: PERRL - Neck Neck: Supple, no meningeal sign - Cardiac Cardiac: RRR, No murmur, Other (Tenderness elicited with palpation of the left anterior chest wall. No crepitus ecchymosis or erythema noted.) - Respiratory Respiratory: Clear bilaterally - Abdomen Abdomen: Normal bowel sounds, Soft, Non tender, Non distended - Extremities Extremities: No deformity, No tenderness to palpate. No: Normal ROM s pain (Mild tenderness with abduction of the left shoulder. Negative Jurgenson's and impingement testing. Full range of motion of the left shoulder in all planes. No ecchymosis noted) - Neuro Neuro: Alert and oriented X 3, humanities coordinator 2-12 intact, No motor deficit Eye Opening: Spontaneous Motor: Obeys Commands Verbal: Oriented GCS Score: 15 Results - Vitals Vitals: Vital Signs - 24 hr 02/25/21 18:49 Temperature 36 C L Heart Rate 109 H Respiratory 16 Rate Blood Pressure 120/82 H O2 Saturation 98 Oxygen O2 Source Room air - Rads (name of study) chest xr Radiology: Final report received (No acute cardiopulmonary process) left shoulder xr Radiology: Final report received (No fracture or dislocation) PD MEDICAL DECISION MAKING - ED course Complexity details: reviewed results, considered differential, d/w patient ED course: 25-year-old male presents emergency department for evaluation of left upper anterior chest and left shoulder pain. Reports that he was hit by a log while cutting a tree last week. Did not strike his head or fall to the ground. There was no loss of consciousness. However since then he has had persistent pain in his left upper chest and occasional difficulty breathing. He has taken Motrin and Tylenol with moderate relief of pain. On exam the chest pain is reproducible. There is no external signs of trauma such as ecchymosis or abrasion. A chest x-ray as well as a left shoulder x-ray are without acute findings. I suspect at this time this gentleman likely sustained a contusion. We discussed routine cruh-kny-zurfijt care measures. Emergent return precautions were discussed. Departure - Departure Disposition: 01 Home, Self Care Clinical Impression: Chest wall contusion Qualifiers: Encounter type: initial encounter Laterality: left Qualified Code(s): S20.212A - Contusion of left front wall of thorax, initial encounter Contusion of left shoulder Qualifiers: Encounter type: initial encounter Qualified Code(s): S40.012A - Contusion of left shoulder, initial encounter Condition: Stable Record reviewed to determine appropriate education?: Yes Instructions: ED Contusion Chest Wall Comments: Francis milian are seen in the ER today for left upper chest wall pain as well as left shoulder pain after being struck by a tree branch last week. The x-ray of your chest and shoulder do not show any broken bones or collapsed lung. I suspect that you have some internal bruising of your chest wall muscles. This will resolve with a little more time. It is okay to continue to take the Tylenol and ibuprofen as you have been. Return to the emergency department if you are developing severe shortness of breath, have a bloody cough, have any fainting episodes or develop any fevers.
--- NOTE | 2021-02-25 19:41 | XRAY Report ---
PROCEDURE: Chest 1 View X-Ray INDICATIONS: chest pain TECHNIQUE: One view of the chest was acquired. COMPARISON: None. FINDINGS: Surgical changes and devices: None. Lungs and pleura: No pleural effusions or pneumothorax. Lungs are clear. Mediastinum: Mediastinal contours appear normal. Heart size is normal. Bones and chest wall: No suspicious bony lesions. Overlying soft tissues appear unremarkable. IMPRESSION: No acute disease. Reviewed by: Danny Price MD on 02/25/2021 7:39 PM PDT Approved by: Danny Price MD on 02/25/2021 7:39 PM PDT Station ID: [id number]
--- NOTE | 2021-02-25 19:42 | XRAY Report ---
PROCEDURE: Shoulder 2 View LT INDICATIONS: hit by log; pain; r/o fx TECHNIQUE: 2 views of the shoulder were acquired. COMPARISON: None. FINDINGS: Bones: No fractures or dislocations. No suspicious bony lesions. Visualized ribs appear intact. Soft tissues: No suspicious soft tissue calcifications. IMPRESSION: No fracture Reviewed by: Danny Price MD on 02/25/2021 7:40 PM PDT Approved by: Danny Price MD on 02/25/2021 7:40 PM PDT Station ID: [id number]
[2021-02-25] MEDS ORDERED: HYDROmorphone 1 MG/ML CARPUJECT IM STA (19:43)
[2021-02-25 20:38] VITALS: BP 120/91
== END 2021-02-25 20:38 | disposition home or self-care (01) ==
LOC: ED 18:46
DX: S20.212A Contusion of left front wall of thorax, initial encounter (principal); S40.012A Contusion of left shoulder, initial encounter; W20.8XXA Other cause of strike by thrown, projected or falling object, initial encounter; Y93.H2 Activity, gardening and landscaping; Y99.0 Civilian activity done for income or pay; F17.200 Nicotine dependence, unspecified, uncomplicated
CPT/HCPCS: 71045; 73030; 96372; 99284; J1170

== ENCOUNTER 2021-03-24 22:04 | Emergency (ER) | payer MEDICAID ==
[2021-03-24 22:11] VITALS: BP 147/96
--- NOTE | 2021-03-24 22:19 | ED Physician Documentation ---
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 Denies REY, denies LOC, denies visual changes. He is UTD on tetanus Review of Systems Eyes: denies: Loss of vision, Decreased vision Skin: reports: Laceration (s) Musculoskeletal: reports: Reviewed and negative. denies: Neck pain Neurologic: reports: Head injury. denies: Confused, Altered mental status, Headache, LOC PD PAST MEDICAL HISTORY - Past Medical History Past Medical History: No - Past Surgical History Past Surgical History: No - Present Medications Home Medications: Ambulatory Orders Medication Instructions Recorded Confirmed No Known Home Medications 07/07/20 02/25/21 - Allergies Allergies/Adverse Reactions: Allergies Allergy/AdvReac Type Severity Reaction Status Date / Time No Known Drug Allergies Allergy Verified 03/24/21 22:12 - Social History Does the pt smoke?: Yes Smoking Status: Current every day smoker Does the pt drink ETOH?: Yes Does the pt have substance abuse?: No - Immunizations Immunizations are current?: Yes Immunizations: TDAP current <10years - POLST Patient has POLST: No PD ED PE NORMAL - Vitals Vital signs reviewed: Yes - General General: Alert and oriented X 3, No acute distress, Well developed/nourished - HEENT HEENT: PERRL, EOMI - Neck Neck: No bony TTP PD ED PE EXPANDED - HEENT HEENT Visual: 1 - laceration (2.5 cm total length "checkmark"-shaped laceration) Results - Vitals Vitals: Vital Signs - 24 hr 03/24/21 22:06 Temperature 36.6 C Heart Rate 92 Respiratory 16 Rate Blood Pressure 147/96 H O2 Saturation 99 Oxygen O2 Source Room air Procedures - Laceration (location) Face left Length in cm: 2.5 Wound type: Stellate ("checkmark"-shaped (small "v" shape at cranial-most aspect)), Into subcut fat, Clean Neurovascular status: Sensory intact, Motor intact, Vascular intact Anesthesia: Lidocaine 1%, With bicarb Wound preparation: Chlorhexadine, Irrigated copiously NS, Wound explored, To the base Skin layer closure: Nylon, Steri strips, Interrupted, Running, Other (the caudal-most portion of the wound (lowest 0.5 cm) involved too thin a flap to allow for suture repair and thus this was reapproximated with steristrips reinforced with benzoin. The remainder of the wound was closed with two separate running sutures, total of 7 throws) Other: Patient tolerated well, No complications, Tetanus UTD PD MEDICAL DECISION MAKING - ED course Complexity details: considered differential, d/w patient Departure - Departure Disposition: 01 Home, Self Care Clinical Impression: Facial laceration Qualifiers: Encounter type: initial encounter Qualified Code(s): S01.81XA - Laceration without foreign body of other part of head, initial encounter Condition: Good Instructions: ED Laceration Facial Sutr Tape Follow-Up: LUBA MUÑIZ ARNP [Physician No Access] - Comments: Follow up with your primary care provider in 6-7 days for removal of the stitches
[2021-03-24] MEDS ORDERED: BUFFERED LIDOCAINE 10 ML SYRINGE SUBQ STA (22:36)
[2021-03-24] MEDS ORDERED: BACITRACIN ZINC OINT 1 PACKET TOP STA (23:11)
== END 2021-03-24 23:16 | disposition home or self-care (01) ==
LOC: ED 22:04
DX: S01.81XA Laceration without foreign body of other part of head, initial encounter (principal); W10.9XXA Fall (on) (from) unspecified stairs and steps, initial encounter; Y93.01 Activity, walking, marching and hiking; Y92.009 Unspecified place in unspecified non-institutional (private) residence as the place of occurrence of the external cause; F17.200 Nicotine dependence, unspecified, uncomplicated
CPT/HCPCS: 12011; 99282

== ENCOUNTER 2021-03-31 15:17 | Emergency (ER) | payer MEDICAID ==
[2021-03-31] MEDS ORDERED: BACITRACIN ZINC OINT 1 PACKET TOP STA (15:46)
--- NOTE | 2021-03-31 16:44 | ED Physician Documentation ---
History of Present Illness - Stated complaint Stated Complaint: STITCHES REMOVAL - Chief complaint Chief Complaint: General - History obtained from History obtained from: Patient - History of Present Illness Timing: How many weeks ago (1) Pain level max: 0 Pain level now: 0 - Additonal information Additional information: Patient had stitches placed 1 week ago. Here for suture removal. Has no complaints. No fevers. No drainage. Nothing makes better or worse. Review of Systems Constitutional: denies: Fever PD PAST MEDICAL HISTORY - Past Medical History Past Medical History: No - Past Surgical History Past Surgical History: No - Present Medications Home Medications: Ambulatory Orders Medication Instructions Recorded Confirmed No Known Home Medications 07/07/20 03/31/21 - Allergies Allergies/Adverse Reactions: Allergies Allergy/AdvReac Type Severity Reaction Status Date / Time No Known Drug Allergies Allergy Verified 03/24/21 22:12 - Social History Does the pt smoke?: Yes Smoking Status: Current every day smoker Does the pt drink ETOH?: Yes Does the pt have substance abuse?: No - Immunizations Immunizations are current?: Yes Immunizations: TDAP current <10years - POLST Patient has POLST: No PD ED PE NORMAL - Vitals Vital signs reviewed: Yes - General General: Alert and oriented X 3, No acute distress - HEENT HEENT: Moist mucous membranes, Other (Sutures to the left forehead. There is a large amount of clot covering the sutures. No signs of infection. No tenderness. No drainage) - Neck Neck: Supple, no meningeal sign - Derm Derm: Warm and dry - Neuro Neuro: Alert and oriented X 3 - Psych Psych: Normal mood, Normal affect Results - Vitals Vitals: Vital Signs - 24 hr 03/31/21 03/31/21 15:25 16:59 Temperature 36.3 C L 36.6 C Heart Rate 96 79 Respiratory 17 16 Rate Blood Pressure 150/96 H 141/94 H O2 Saturation 98 97 Oxygen O2 Source Room air Procedures - Suture/staple Removal (location) forehead Suture/staple removal: # sutures (all), No complications PD MEDICAL DECISION MAKING - ED course Complexity details: considered differential, d/w patient ED course: All sutures were removed. Patient tolerated well. No complications. The clot was carefully cleansed and removed with water and bacitracin. Patient counseled regarding signs and symptoms for which I believe and urgent re-evaluation would be necessary. Patient with good understanding of and agreement to plan and is comfortable going home at this time This document was made in part using voice recognition software. While efforts are made to proofread this document, sound alike and grammatical errors may occur. Departure - Departure Disposition: 01 Home, Self Care Clinical Impression: Visit for suture removal Condition: Good Instructions: ED Wound Check Sutr Remove No Infec Follow-Up: your,doctor as needed [Other] Comments: Sutures were removed today. Follow-up with your doctor as needed for any further care. Return if you worsen. Discharge Date/Time: 03/31/21 17:01
[2021-03-31 17:01] VITALS: BP 141/94
== END 2021-03-31 17:01 | disposition home or self-care (01) ==
LOC: ED 15:17
DX: S01.81XD Laceration without foreign body of other part of head, subsequent encounter (principal); X58.XXXD Exposure to other specified factors, subsequent encounter; F17.200 Nicotine dependence, unspecified, uncomplicated
CPT/HCPCS: 99281; A9270

== ENCOUNTER 2021-08-04 10:30 | Emergency (ER) | payer MEDICAID ==
[2021-08-04] MEDS ORDERED: LIDOCAINE 1%-EPI 1:100000 20 ML MDV SUBQ STA (10:49)
[2021-08-04] MEDS ORDERED: KETOROLAC 15 MG/ML VIAL IVP STA (11:20)
[2021-08-04] MEDS ORDERED: CLINDAMYCIN 600 MG/50 ML 50 ML IV ONE (11:20)
--- NOTE | 2021-08-04 11:22 | ED Physician Documentation ---
PD HPI WOUND RECHECK - Stated complaint Stated Complaint: MALE - Chief complaint Chief Complaint: Wound - Histroy obtained from History obtained from: Patient - Additional information Additional information: 26-year-old gentleman presents with an infection of the groin starting about 2 days ago with severe pain but declines narcotics. Denies symptoms of systemic illness such as fevers, chills or malaise. Review of Systems Ten Systems: 10 systems reviewed and negative Constitutional: denies: Fever, Chills Eyes: reports: Reviewed and negative Nose: reports: Reviewed and negative Throat: reports: Reviewed and negative Cardiac: reports: Reviewed and negative Respiratory: reports: Reviewed and negative PD PAST MEDICAL HISTORY - Past Surgical History Past Surgical History: No - Present Medications Home Medications: Ambulatory Orders Medication Instructions Recorded Confirmed clindamycin HCL [Cleocin HCl] 300 mg PO QID #28 cap 08/04/21 - Allergies Allergies/Adverse Reactions: Allergies Allergy/AdvReac Type Severity Reaction Status Date / Time No Known Drug Allergies Allergy Verified 08/04/21 10:40 - Social History Does the pt smoke?: Yes Smoking Status: Current every day smoker Does the pt drink ETOH?: Yes Does the pt have substance abuse?: No - Immunizations Immunizations are current?: Yes Immunizations: TDAP current <10years - POLST Patient has POLST: No PD ED PE NORMAL - Vitals Vital signs reviewed: Yes - General General: Alert and oriented X 3, No acute distress - HEENT HEENT: PERRL, EOMI - Neck Neck: Supple, no meningeal sign, No bony TTP - Cardiac Cardiac: RRR, No murmur - Respiratory Respiratory: No respiratory distress, Clear bilaterally - Abdomen Abdomen: Normal bowel sounds, Soft, Non tender - Male Male : Other (He has induration that seems focused in the perineum without obvious drainable abscess but with some induration and tenderness as well as mild overlying cellulitis spreading up into the inferior scrotum and into the left gluteal crease.) - Back Back: No CVA TTP, No spinal TTP - Derm Derm: Normal color, Warm and dry - Extremities Extremities: No edema, No calf tenderness / cord - Neuro Neuro: Alert and oriented X 3, Normal speech Results - Vitals Vitals: Vital Signs - 24 hr 08/04/21 08/04/21 08/04/21 10:40 11:12 11:30 Temperature 36.8 C Heart Rate 104 H 83 85 Respiratory 18 27 H 26 H Rate Blood Pressure 115/75 112/75 110/70 O2 Saturation 99 99 100 08/04/21 08/04/21 08/04/21 12:00 12:30 13:16 Temperature Heart Rate 74 77 76 Respiratory 23 24 18 Rate Blood Pressure 110/79 106/74 101/61 O2 Saturation 99 98 08/04/21 14:25 Temperature Heart Rate 72 Respiratory 18 Rate Blood Pressure 101/60 O2 Saturation 99 Oxygen O2 Source Room air - Labs Labs: Laboratory Tests 08/04/21 08/04/21 08/04/21 11:50 11:50 11:50 WBC 15.8 H RBC 4.12 L Hgb 13.3 L Hct 39.7 L MCV 96.4 H MCH 32.3 H MCHC 33.5 RDW 12.7 Plt Count 232 MPV 8.6 Neut # (Auto) 12.4 H Lymph # (Auto) 1.7 [place] # (Auto) 1.4 H Eos # (Auto) 0.2 Baso # (Auto) 0.1 Absolute Nucleated RBC 0.00 Nucleated RBC % 0.0 Sodium 144 Potassium 3.4 L Chloride 105 Carbon Dioxide 26 Anion Gap 13.0 BUN 8 Creatinine 0.5 L Estimated GFR (MDRD) 199 Glucose 109 H Lactic Acid 1.6 Calcium 9.0 Total Bilirubin 0.4 AST 43 H ALT 35 Alkaline Phosphatase 72 C-Reactive Protein Total Protein 8.2 Albumin 4.3 Globulin 3.9 Albumin/Globulin Ratio 1.1 08/04/21 11:50 WBC RBC Hgb Hct MCV MCH MCHC RDW Plt Count MPV Neut # (Auto) Lymph # (Auto) [place] # (Auto) Eos # (Auto) Baso # (Auto) Absolute Nucleated RBC Nucleated RBC % Sodium Potassium Chloride Carbon Dioxide Anion Gap BUN Creatinine Estimated GFR (MDRD) Glucose Lactic Acid Calcium Total Bilirubin AST ALT Alkaline Phosphatase C-Reactive Protein 8.0 H Total Protein Albumin Globulin Albumin/Globulin Ratio PD MEDICAL DECISION MAKING - ED course ED course: 26-year-old gentleman presents with what looks like an early abscess with cellulitis and phlegmon formation in the groin/buttock. He does not appear toxic. He has no fever. His white count is 16,000, the remainder of his labs not too bad with mild elevation in the CRP. CT was done showing a phlegmon but no clear signs of necrotizing soft tissue infection. His LRI-NEC score is 2. He received IV clindamycin here. Patient eager for discharge and not requiring anything for pain here other than a dose of Toradol. Discussed with him that although there are no clear signs of necrotizing infection he should return tomorrow for reevaluation. He may also develop an abscess as he has a phlegmon there, but nothing to drain at this juncture. Departure - Departure Disposition: 01 Home, Self Care Clinical Impression: Cellulitis Qualifiers: Site of cellulitis: buttock Qualified Code(s): L03.317 - Cellulitis of buttock Condition: Good Record reviewed to determine appropriate education?: Yes Instructions: Cellulitis Dc Prescriptions: clindamycin HCL [Cleocin HCl] 300 mg PO QID #28 cap Comments: As discussed, the infection does not look too bad on the CAT scan. I do think you should return for reevaluation tomorrow if not improving or anytime if worsening or if running a high fever or if you develop significant pain. I sent your prescription electronically to [facility] in [place].
[2021-08-04 12:03] LABS: BASOPHILS # (AUTO) 0.1 10^3/uL (0.0-0.1); BASOPHILS % (AUTO) 0.6 %; EOSINOPHILS # (AUTO) 0.2 10^3/uL (0.0-0.7); EOSINOPHILS % (AUTO) 1.2 %; HCT - HEMATOCRIT 39.7 % (42.0-52.0); HGB - HEMOGLOBIN 13.3 g/dL (14.0-18.0); LYMPHOCYTES # (AUTO) 1.7 10^3/uL (1.5-3.5); LYMPHOCYTES % (AUTO) 10.5 %; MEAN CORPUSCULAR HEMOGLOBIN 32.3 pg (27.0-31.0); MEAN CORPUSCULAR HGB CONC 33.5 g/dL (32.0-36.0); MEAN CORPUSCULAR VOLUME 96.4 fL (80.0-94.0); MEAN PLATELET VOLUME 8.6 fL (7.4-11.4); MONOCYTES # (AUTO) 1.4 10^3/uL (0.0-1.0); MONOCYTES % (AUTO) 8.9 %; NEUTROPHILS # (AUTO) 12.4 10^3/uL (1.5-6.6); NEUTROPHILS % (AUTO) 78.5 %; PLT - PLATELET COUNT 232 10^3/uL (130-450); RED BLOOD COUNT 4.12 10^6/uL (4.70-6.10); RED CELL DISTRIBUTION WIDTH 12.7 % (12.0-15.0); WHITE BLOOD COUNT 15.8 x10^3/uL (4.8-10.8)
[2021-08-04 12:17] LABS: ALBUMIN 4.3 g/dL (3.2-5.5); ALBUMIN/GLOBULIN RATIO 1.1 (1.0-2.2); BILIRUBIN,TOTAL 0.4 mg/dL (0.2-1.0); CREATININE 0.5 mg/dL (0.6-1.2); POTASSIUM 3.4 mmol/L (3.5-5.0); TOTAL PROTEIN 8.2 g/dL (6.7-8.2)
[2021-08-04] MEDS ORDERED: IOVERSOL 320 100 ML VIAL IVP ONE ×2 (13:34→20:16)
[2021-08-04 14:25] VITALS: BP 101/60
--- NOTE | 2021-08-04 15:54 | CT Report ---
PROCEDURE: PELVIS W INDICATIONS: IV only, pelvic infection, go to upper thigh CONTRAST: IV CONTRAST: Optiray 320 ml: 100 PO CONTRAST: *NO PO CONTRAST TECHNIQUE: After the administration of contrast, 5 mm thick sections acquired from the iliac crests to the s ymphysis. 5 mm thick coronal and sagittal reformats were acquired. For radiation dose reduction, th e following was used: automated exposure control, adjustment of mA and/or kV according to patient si ze. COMPARISON: FINDINGS: Image quality: Excellent. Peritoneum and bowel: Contrast enhanced bowel loops demonstrate normal wall thickness and caliber. No free fluid or air. There is soft tissue swelling along the left inner perineum measuring approxim ately 2 x 4 cm. No fluid collection to suggest abscess is present at this time. There is no soft tiss ue soft tissue gas. Genitourinary: Bladder wall thickness is normal. Scrotal edema is noted. No gas in the scrotal soft tissues. Nodes and vessels: No iliac, pelvic, or inguinal adenopathy. Iliac vessels demonstrate normal size and enhancement. Bones: No suspicious bony lesions. Miscellaneous: No inguinal hernias. IMPRESSION: 1. Left peroneal soft tissue infection with no abscess at this time. 2. Scrotal edema. 3. No evidence of gas gangrene. Reviewed by: Tod Franks on 08/04/2021 3:53 PM PST Approved by: Tod Franks on 08/04/2021 3:53 PM PST Station ID: [id number]
== END 2021-08-04 15:43 | disposition home or self-care (01) ==
LOC: ED 10:30
DX: L03.317 Cellulitis of buttock (principal); F17.200 Nicotine dependence, unspecified, uncomplicated
CPT/HCPCS: 36415; 72193; 80053; 83605; 85025; 86140; 87040; 96365; 96375; 99284; Q9967

== ENCOUNTER 2022-01-03 13:24 | Emergency (ER) | payer MEDICAID | END 2022-01-03 14:39 | disposition left against medical advice (07) | LOC: ED 13:24 | DX: Z53.21 Procedure and treatment not carried out due to patient leaving prior to being seen by health care provider (principal) ==

== ENCOUNTER 2022-03-17 15:28 | Emergency (ER) | payer MEDICAID ==
[2022-03-17 15:38] VITALS: BP 139/81
--- NOTE | 2022-03-17 16:14 | XRAY Report ---
PROCEDURE: Tib/Fib LT INDICATIONS: Tree branch injury TECHNIQUE: 2 views of the tibia and fibula were acquired. COMPARISON: None FINDINGS: Bones: No fractures or dislocations. No suspicious bony lesions. Soft tissues: No suspicious soft tissue calcifications or masses. IMPRESSION: Normal left tibia and fibular radiographs Reviewed by: Titus Hill MD on 03/17/2022 3:12 PM AKDT Approved by: Titus Hill MD on 03/17/2022 3:12 PM AKDT Station ID: [id number]
--- NOTE | 2022-03-17 16:49 | ED Physician Documentation ---
PD HPI LOWER EXT INJURY - Stated complaint Stated Complaint: L SCOTT INJ - Chief complaint Chief Complaint: Trauma Ext - History obtained from History obtained from: Patient - Additional information Additional information: Patient is a 26-year-old male presenting for evaluation of bruising and pain to his left scott. Saturday while at work a large tree branch came down and hit him in the leg. He has since had bruising and swelling which is improving.However his mother encouraged him to have it evaluated. He has been able to ambulate without difficulty. He denies use of blood thinners. He sung es injury elsewhere. Review of Systems Constitutional: denies: Fever Nose: denies: Congestion Cardiac: denies: Chest pain / pressure Respiratory: denies: Dyspnea GI: denies: Abdominal Pain : denies: Dysuria Musculoskeletal: reports: Extremity swelling Neurologic: denies: Headache PD PAST MEDICAL HISTORY - Past Surgical History Past Surgical History: No - Present Medications Home Medications: Ambulatory Orders Medication Instructions Recorded Confirmed No Known Home Medications 03/17/22 03/17/22 - Allergies Allergies/Adverse Reactions: Allergies Allergy/AdvReac Type Severity Reaction Status Date / Time No Known Drug Allergies Allergy Verified 03/17/22 15:37 - Social History Does the pt smoke?: Yes Smoking Status: Current every day smoker Does the pt drink ETOH?: Yes Does the pt have substance abuse?: No - Immunizations Immunizations are current?: Yes Immunizations: TDAP current <10years - POLST Patient has POLST: No PD ED PE NORMAL - General General: Alert and oriented X 3, No acute distress, Well developed/nourished - HEENT HEENT: Atraumatic - Cardiac Cardiac: Strong equal pulses - Respiratory Respiratory: No respiratory distress - Derm Derm: Warm and dry - Extremities Extremities: No deformity, Normal ROM s pain, No calf tenderness / cord, Other (Yellow and small area of purple bruising to left scott with soft tissue swelling anteriorly, no calf tenderness Or swelling; Pedal pulses intact) - Neuro Neuro: No motor deficit, No sensory deficit Results - Vitals Vitals: Vital Signs - 24 hr 03/17/22 15:34 Temperature 37.3 C Heart Rate 104 H Respiratory 16 Rate Blood Pressure 139/81 H O2 Saturation 96 Oxygen O2 Source Room air PD MEDICAL DECISION MAKING - ED course Complexity details: reviewed results, d/w patient ED course: Pt with trauma to lower leg few days ago with bruising and anterior swelling. COmpartments of extremity are soft. No fracture/dislocation on XR. Pt ambulating without difficulty. No calf tenderness/swelling to suggest DVT. Pt counseled on continuing with supportive care as well as concerning symptoms to return for. Departure - Departure Disposition: 01 Home, Self Care Clinical Impression: Injury of left scott Qualifiers: Encounter type: initial encounter Qualified Code(s): S89.92XA - Unspecified injury of left lower leg, initial encounter Contusion of leg, left Qualifiers: Encounter type: initial encounter Qualified Code(s): S80.12XA - Contusion of left lower leg, initial encounter Condition: Stable Instructions: ED Contusion Lower Ext Comments: You were evaluated for bruising and swelling to your left leg. An x-ray does not show a broken or out of place bone. You likely have a deep bruise which is improving. I would use an Jamar wrap as well as ice and elevate the leg to help with continuing to reduce the swelling. The bruise may take another week to completely resolve. If you have any worsening symptoms such as increased swelling, increased pain or any new concerns please return to the ER. Discharge Date/Time: 03/17/22 17:07
== END 2022-03-17 17:07 | disposition home or self-care (01) ==
LOC: ED 15:28
DX: S89.92XA Unspecified injury of left lower leg, initial encounter (principal); S80.12XA Contusion of left lower leg, initial encounter; W20.8XXA Other cause of strike by thrown, projected or falling object, initial encounter; Y99.0 Civilian activity done for income or pay; F17.200 Nicotine dependence, unspecified, uncomplicated
CPT/HCPCS: 99282; 99283

== ENCOUNTER 2022-05-01 14:40 | Emergency (ER) | payer MEDICAID, OTHER | END 2022-05-01 15:18 | disposition left against medical advice (07) | LOC: ED 14:40 | DX: Z53.21 Procedure and treatment not carried out due to patient leaving prior to being seen by health care provider (principal) ==

== ENCOUNTER 2022-09-19 15:09 | Emergency (ER) | payer MEDICAID ==
[2022-09-19 15:27] VITALS: BP 145/94
[2022-09-19] MEDS ORDERED: AMOXICILLIN 250 MG CAPSULE PO STA (16:03)
[2022-09-19] MEDS ORDERED: HYDROcod/ACETAM 5/325 MG TABLET PO STA (16:03)
[2022-09-19] MEDS ORDERED: CETIRIZINE 10 MG TABLET PO STA (16:03)
--- NOTE | 2022-09-19 16:06 | ED Physician Documentation ---
PD HPI HEENT - Stated complaint Stated Complaint: HEADEACHE - Chief complaint Chief Complaint: Heent - History obtained from History obtained from: Patient - History of Present Illness Timing - onset: How many days ago (2-3) Timing - duration: Days (2-3) Timing - details: Gradual onset, Still present Location: Sinuses (pain in frontal area, with feeling of congestion and pressure. Some nasal drainage. No sore throat nor ear pain. 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 No: Fever, Swollen nodes, Facial swelling Similar symptoms before: Has not had sx before Review of Systems Constitutional: denies: Fever, Chills, Myalgias Nose: reports: Congestion, Sinus pressure / pain. denies: Rhinorrhea / runny nose Throat: denies: Sore throat Respiratory: denies: Cough Skin: denies: Rash, Lesions Neurologic: denies: Altered mental status PD PAST MEDICAL HISTORY - Past Medical History Cardiovascular: None Respiratory: None - Past Surgical History Past Surgical History: No - Present Medications Home Medications: Ambulatory Orders Medication Instructions Recorded Confirmed Amoxicillin 500 mg PO TID #21 cap 09/19/22 Cetirizine [ZyrTEC] 10 mg PO DAILY #15 tablet 09/19/22 HYDROcod/ACETAM 5/325 [[place] 5/325] 1 ea PO Q6H PRN #12 tablet 09/19/22 Sodium Chloride [Saline Nasal 1 - 2 spr NS QID 7 Days #88 ml 09/19/22 [place]] - Allergies Allergies/Adverse Reactions: Allergies Allergy/AdvReac Type Severity Reaction Status Date / Time No Known Drug Allergies Allergy Verified 09/19/22 15:27 - Social History Does the pt smoke?: Yes Smoking Status: Current every day smoker Does the pt drink ETOH?: Yes Does the pt have substance abuse?: No - Immunizations Immunizations are current?: Yes Immunizations: TDAP current <10years - POLST Patient has POLST: No PD ED PE NORMAL - Vitals Vital signs reviewed: Yes - General General: Alert and oriented X 3, No acute distress (but is somewhat anxious about it. ), Well developed/nourished - HEENT HEENT: Ears normal, Pharynx benign, Other (some sinus tenderness frontal to percussion. 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 Complains of onset of this frontal and periorbital pain and pressure. Some nasal discharge.), d/w patient ED course: does not sound like general headache and no neuro symptoms. can treat as sinus irritation vs sinus infection. Departure - Departure Disposition: Home, Self Care Clinical Impression: Sinus pain Condition: Stable Record reviewed to determine appropriate education?: Yes Instructions: ED Headache Sinus Prescriptions: Amoxicillin 500 mg PO TID #21 cap HYDROcod/ACETAM 5/325 [[place] 5/325] 1 ea PO Q6H PRN #12 tablet PRN Reason: Pain Sodium Chloride [Saline Nasal [place]] 1 - 2 spr NS QID 7 Days #88 ml Cetirizine [ZyrTEC] 10 mg PO DAILY #15 tablet Comments: The area of your pain is more sinuses than it is "headache". Given your work, and would be inclined to think that you have either some sinus inflammation and congestion or possibly a developing infection given the has been inhaling some dust with maneuver. I would think of cleansing your nasal passage with saline spray several times a day to help cleanse it and open up the sinus passages. Also cetirizine antihistamine for the next couple of weeks. For concern of infection developing as a cause of this, I would also add amoxicillin 3 times daily for a week. Use Tylenol or ibuprofen as needed for pains. Add hydrocodone if needed for worse pain. I sent your prescriptions to [facility] pharmacy. Recheck if not improving well over the next several days and resolved by 4 to 5 days. I am prescribing a short course of narcotic pain medication for you. These are potentially dangerous and addictive medications that should be used carefully. These medications may constipate you. Take an oibu-thx-dhwblji stool softener such as docusate twice daily with plenty of water while taking these medications. If you go 24 hours without a bowel movement, take [id number] MiraLAX, per package instructions. Do not drink or drive while taking these medications. If you received narcotic or sedating medications while in the emergency department do not drive for 24 hours. Store this medication in a safe, secure place and out of reach of children. It is a violation of federal law to give or sell this medication to another person or to use in a manner other than prescribed. The ED will not refill narcotic prescriptions, including prescriptions lost or stolen. You can dispose of unwanted medications at the [facility]'s office or at several pharmacies such as [facility]. Discharge Date/Time: 09/19/22 16:24
== END 2022-09-19 16:24 | disposition home or self-care (01) ==
LOC: ED 15:09
DX: J34.89 Other specified disorders of nose and nasal sinuses (principal)
CPT/HCPCS: 99282; 99283; A9270

== ENCOUNTER 2022-11-09 20:33 | Emergency (ER) | payer MEDICAID ==
[2022-11-09 20:47] VITALS: BP 134/90
--- NOTE | 2022-11-09 21:01 | ED Physician Documentation ---
PD HPI LOWER EXT INJURY - Stated complaint Stated Complaint: LEFT LEG PX - Chief complaint Chief Complaint: Ext Problem - History obtained from History obtained from: Patient - History of Present Illness PD HPI LOW EXT INJURY LOCATION: Left, Lower leg - Additional information Additional information: 27-year-old male presents with left scott contusion and swelling. He hit it on a trailer hitch several days ago. 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 No erythema. He has not attempted any treatment for this. Review of Systems Constitutional: reports: Reviewed and negative Skin: reports: Other (Bruising) Musculoskeletal: reports: Extremity pain, Pain with weight bearing PD PAST MEDICAL HISTORY - Past Medical History Past Medical History: No Cardiovascular: None Respiratory: None - Past Surgical History Past Surgical History: No - Present Medications Home Medications: Ambulatory Orders Medication Instructions Recorded Confirmed Amoxicillin 500 mg PO TID #21 cap 09/19/22 Cetirizine [ZyrTEC] 10 mg PO DAILY #15 tablet 09/19/22 HYDROcod/ACETAM 5/325 [[place] 5/325] 1 ea PO Q6H PRN #12 tablet 09/19/22 Sodium Chloride [Saline Nasal 1 - 2 spr NS QID 7 Days #88 ml 09/19/22 [place]] - Allergies Allergies/Adverse Reactions: Allergies Allergy/AdvReac Type Severity Reaction Status Date / Time No Known Drug Allergies Allergy Verified 09/19/22 15:27 - Social History Does the pt smoke?: Yes Smoking Status: Current every day smoker Does the pt drink ETOH?: Yes Does the pt have substance abuse?: No - Immunizations Immunizations are current?: Yes Immunizations: TDAP current <10years - POLST Patient has POLST: No PD ED PE NORMAL - Vitals Vital signs reviewed: Yes - General General: Alert and oriented X 3, No acute distress, Well developed/nourished - Derm Derm: Normal color, Warm and dry, Other (Hematoma over the mid left scott with surrounding bruising, no erythema, no induration or cellulitis. Skin is intact.) - Extremities Extremities: Other (Left scott tender to palpation with swelling, no obvious deformity. No other extremity injuries) Results - Vitals Vitals: Vital Signs - 24 hr 11/09/22 20:44 Temperature 36.9 C Heart Rate 106 H Respiratory 18 Rate Blood Pressure 134/90 H O2 Saturation 98 Oxygen O2 Source Room air - Rads (name of study) No standard instances Relevant Findings:: Final report received, EMP independent interpretation of test PD Medical Decision Making - ED course Complexity details: reviewed results, d/w patient ED course: 27-year-old male presents with contusion of the left scott with hematoma. There is no signs of active infection at this time, no erythema, no cellulitis, no focal fluid collection. We did obtain x-ray which is negative for fracture per my read. Advised patient that I recommend elevating the leg, utilizing cool compress and he can take Tylenol and ibuprofen for pain. He has been walking on the legs the last several days which I think has contributed to the increased swelling. He has no calf pain or calf swelling or cords to suggest DVT and he has no risk factors for this. He is therefore stable for discharge home at this time. Departure - Departure Disposition: 01 Home, Self Care Clinical Impression: Hematoma of lower leg Condition: Good Instructions: Contusion Bone About, ED Hematoma Comments: Your x-ray is negative for signs of fracture. You do have a hematoma which is bleeding under the skin and over the bone. This will dissipate on its own over the next week or 2. Please keep your leg elevated and use an ice pack to help with pain and swelling over the next several days. You can take ibuprofen and Tylenol as well and you can try a lidocaine patch if desired. You should not need stronger pain medication than this.
--- NOTE | 2022-11-09 21:48 | XRAY Report ---
PROCEDURE: Tib/Fib LT INDICATIONS: injury TECHNIQUE: 2 views of the tibia and fibula were acquired. COMPARISON: 03/17/2022 FINDINGS: Bones: No fractures or dislocations. No suspicious bony lesions. Soft tissues: No suspicious soft tissue calcifications or masses. IMPRESSION: No acute bony abnormality. Reviewed by: Aung Bailey MD on 11/09/2022 8:46 PM AKMAE Approved by: Aung Bailey MD on 11/09/2022 8:46 PM AKMAE Station ID: [id number]
== END 2022-11-09 21:52 | disposition home or self-care (01) ==
LOC: ED 20:33
DX: S80.12XA Contusion of left lower leg, initial encounter (principal); X58.XXXA Exposure to other specified factors, initial encounter; F17.200 Nicotine dependence, unspecified, uncomplicated
CPT/HCPCS: 99283

== ENCOUNTER 2022-12-15 19:45 | Emergency (ER) | payer MEDICAID ==
[2022-12-15 19:58] VITALS: BP 128/80
[2022-12-15] MEDS ORDERED: LIDOCAINE-EPINEPH-TETRACAINE 3 ML SYRINGE TOP STA (20:12)
[2022-12-15] MEDS ORDERED: AMOX/CLAV 875 MG/125 MG TABLET PO STA (20:12)
--- NOTE | 2022-12-15 20:48 | ED Physician Documentation ---
PD HPI HEENT - Stated complaint Stated Complaint: UPPER LIP LAC - Chief complaint Chief Complaint: Laceration - History obtained from History obtained from: Patient - Additional information Additional information: Patient is a 27-year-old male presenting for evaluation of right upper lip laceration that occurred within the last hour. Patient states that he was outside of his apartment when he noticed a dog with a collar on that was in the road. He went to help the dog get out of the road when it bit him. He is not familiar with the dog. His last tetanus is in 2020. He does not take any medica tions. Review of Systems Constitutional: denies: Fever Cardiac: denies: Chest pain / pressure Respiratory: denies: Dyspnea Skin: reports: Laceration (s) PD PAST MEDICAL HISTORY - Past Medical History Cardiovascular: None Respiratory: None - Past Surgical History Past Surgical History: No - Present Medications Home Medications: Ambulatory Orders Medication Instructions Recorded Confirmed Amoxicillin 500 mg PO TID #21 cap 09/19/22 Cetirizine [ZyrTEC] 10 mg PO DAILY #15 tablet 09/19/22 HYDROcod/ACETAM 5/325 [[place] 5/325] 1 ea PO Q6H PRN #12 tablet 09/19/22 Sodium Chloride [Saline Nasal 1 - 2 spr NS QID 7 Days #88 ml 09/19/22 [place]] - Allergies Allergies/Adverse Reactions: Allergies Allergy/AdvReac Type Severity Reaction Status Date / Time No Known Drug Allergies Allergy Verified 12/15/22 19:53 - Social History Does the pt smoke?: Yes Smoking Status: Current every day smoker Does the pt drink ETOH?: Yes Does the pt have substance abuse?: No - Immunizations Immunizations are current?: Yes Immunizations: TDAP current <10years - POLST Patient has POLST: No PD ED PE NORMAL - General General: Alert and oriented X 3, No acute distress, Well developed/nourished - HEENT HEENT: Other (~1 cm laceration to right upper lip which crosses the [place]mil[place] border, no intraoral injury) - Neck Neck: Supple, no meningeal sign - Respiratory Respiratory: No respiratory distress - Derm Derm: Warm and dry - Neuro Neuro: Normal speech Results - Vitals Vitals: Vital Signs - 24 hr 12/15/22 19:53 Temperature 36.5 C Heart Rate 88 Respiratory 16 Rate Blood Pressure 128/80 O2 Saturation 100 Oxygen O2 Source Room air PD Medical Decision Making - ED course ED course: Patient with right upper lip laceration crossing through the [place]mil[place] border. Discussed plan for treatment including antibiotics and suturing the wound given that it crosses the vermil[place]. He was agreeable to this plan. However prior to receiving any further treatment he eloped from the emergency department. Departure - Departure Disposition: ED [place]ope Discharge Date/Time: 12/15/22 20:19
== END 2022-12-15 20:19 | disposition left against medical advice (07) ==
LOC: ED 19:45
DX: S01.511A Laceration without foreign body of lip, initial encounter (principal); W54.0XXA Bitten by dog, initial encounter; F17.200 Nicotine dependence, unspecified, uncomplicated
CPT/HCPCS: 99281; 99282

== ENCOUNTER 2023-02-13 09:00 | Emergency (ER) | payer MEDICAID ==
[2023-02-13 09:26] VITALS: BP 148/103; O2SAT 98
--- NOTE | 2023-02-13 09:30 | ED Physician Documentation ---
History of Present Illness - Stated complaint Stated Complaint: COVID - Chief complaint Chief Complaint: General - History obtained from History obtained from: Patient - Additonal information Additional information: Patient is a 27-year-old male presenting for a COVID test. Patient reports taking a home test yesterday that was positive. However he states he does not have symptoms. He reports he only took the test because his brother had symptoms and his mother had some home tests available and had them all test. He and his brother were the only ones that were positive. Patient states he has had to call off from work and wants to make sure that he is actually positive because he does not have any symptoms. He is not COVID vaccinated. Review of Systems Constitutional: denies: Fever Cardiac: denies: Chest pain / pressure Respiratory: denies: Dyspnea, Cough Neurologic: denies: Headache PD PAST MEDICAL HISTORY - Past Medical History Past Medical History: No Cardiovascular: None Respiratory: None Neuro: None Endocrine/Autoimmune: None GI: None : None HEENT: None Psych: None Musculoskeletal: None Derm: None - Past Surgical History Past Surgical History: No - Present Medications Home Medications: Ambulatory Orders Medication Instructions Recorded Confirmed No Known Home Medications 02/13/23 02/13/23 - Allergies Allergies/Adverse Reactions: Allergies Allergy/AdvReac Type Severity Reaction Status Date / Time No Known Drug Allergies Allergy Verified 02/13/23 09:15 - Social History Does the pt smoke?: Yes Smoking Status: Current every day smoker Does the pt drink ETOH?: Yes ETOH Use: Beer Does the pt have substance abuse?: Yes Substance Use and Type: Marijuana - Immunizations Immunizations are current?: No Immunizations: Other immun not current - POLST Patient has POLST: No PD ED PE NORMAL - General General: Alert and oriented X 3, No acute distress, Well developed/nourished - HEENT HEENT: Atraumatic, Moist mucous membranes, Pharynx benign - Neck Neck: Supple, no meningeal sign - Cardiac Cardiac: RRR, No murmur - Respiratory Respiratory: No respiratory distress, Clear bilaterally - Derm Derm: Warm and dry - Neuro Neuro: Normal speech Results - Vitals Vitals: Vital Signs - 24 hr 02/13/23 09:15 Temperature 36.7 C Heart Rate 100 Respiratory 16 Rate Blood Pressure 148/103 H O2 Saturation 98 Oxygen O2 Source Room air - Labs Labs: Laboratory Tests 02/13/23 09:40 SARS-CoV-2 (PCR) DETECTED A PD Medical Decision Making - ED course ED course: Pt here requesting Covid test. Aysmptomatic but took home test which was po sitive due to brother feeling ill. Swab ordered. Result pending at time of discharge. Pt states his phone is broken and he is unsure of his mother's number to list as an alternate number. He reports access to computer and plans to check the portal later today for his result. Departure - Departure Disposition: Home, Self Care Clinical Impression: Close exposure to COVID-19 virus Condition: Stable Comments: You have a Covid test pending. You need to self quarantine until the result is done and negative. Do not leave your house. Do not get near anybody. The results should be done today. We will call with a positive result, the fastest way to get a negative result for confirmation though is to go to the hospital website at [email or web address], click on the my [employer] ([facility] tab and sign up for the patient portal. If any friends or family get sick and would like to have a Covid test done, but do not have signs or symptoms that would necessitate being hospitalized, there are multiple local options for Covid testing. [facility] keeps an updated list of testing and vaccination options at: [email or web address]. Forms: PCP List Discharge Date/Time: 02/13/23 09:49
== END 2023-02-13 09:49 | disposition home or self-care (01) ==
LOC: ED 09:00
DX: U07.1 COVID-19 (principal); Z28.310 Unvaccinated for COVID-19; F17.200 Nicotine dependence, unspecified, uncomplicated
CPT/HCPCS: 99283

== ENCOUNTER 2023-05-22 20:59 | Emergency (ER) | payer MEDICAID ==
[2023-05-22 21:16] VITALS: BP 142/85; O2SAT 97
== END 2023-05-22 22:22 | disposition left against medical advice (07) ==
LOC: ED 20:59
DX: Z53.21 Procedure and treatment not carried out due to patient leaving prior to being seen by health care provider (principal)

== ENCOUNTER 2023-06-27 08:49 | Outpatient (CLI) | payer MEDICAID | END 2023-06-27 08:50 | disposition critical access hospital (66) | LOC: EMS 08:49 | DX: R44.0 Auditory hallucinations (principal); R44.1 Visual hallucinations | CPT/HCPCS: A0425; A0429; A0999 ==

== ENCOUNTER 2023-06-27 09:11 | Inpatient (IN) | payer MEDICAID ==
[2023-06-27] MEDS ORDERED: SODIUM CHLORIDE 0.9% 1,000 ML IV STA (09:24)
[2023-06-27] MEDS ORDERED: PHENobarbital 65 MG/ML VIAL IV STA (09:24)
[2023-06-27] MEDS ORDERED: METOPROLOL SUCCINATE 50 MG TABLET PO STA (09:25)
--- NOTE | 2023-06-27 09:29 | ED Physician Documentation ---
History of Present Illness - Stated complaint Stated Complaint: HALLUCINATIONS/ETOH WITHDRAWL - Chief complaint Chief Complaint: Neuro - History obtained from History obtained from: Patient - Additonal information Additional information: The patient comes to the emergency department via EMS from [facility] for chief complaint of hallucinations. Per medics, the patient seems to have a fixed delusion of his mother being with him, but otherwise, has been completely lucid and appropriate. The patient has been at [facility] for the last 3 days and is supposed to be there 3 more days. He was initially given IV fluids and as needed Ativan, but last night, began to refer to his mother being in the room and talk to his mother. They tried giving him Benadryl and Haldol, but it did not seem to help. The patient has not had any medication this morning, including his metoprolol for hypertension.. He has been calm and cooperative and medics state his vital signs have been stable. The patient states that he has no history of hallucinations previously. Medics state the patient does not seem to recognize that when he sees his mother, he is hallucinating. The patient has no prior diagnosis of schizophrenia or other psychotic condition. He has been drinking 6-8 tall boys per day, prior to going to [facility]. He is financially responsible for his mother, sister, and her 2 kids. He also is responsible for taking care of his mother, who is an alcoholic. He states there is a lot of stress on him because of this. He denies any physical complaints other than feeling slightly tremulous. No nausea. No sweating. No history of alcohol withdrawal seizures. No other complaints at this time. PD PAST MEDICAL HISTORY - Past Medical History Cardiovascular: Hypertension Respiratory: None Neuro: None Endocrine/Autoimmune: None GI: None : None HEENT: None Psych: None Musculoskeletal: None Derm: None - Past Surgical History Past Surgical History: No - Present Medications Home Medications: Ambulatory Orders Medication Instructions Recorded Confirmed Gabapentin [Neurontin] 300 mg PO TID 06/27/23 06/27/23 LORazepam [Ativan] 1 mg PO UD 06/27/23 06/28/23 Acetaminophen [Tylenol] 1,000 mg PO Q6H PRN 06/28/23 06/28/23 Multivitamin [Theragran] 1 tab PO DAILY 06/28/23 06/28/23 Vitamin B Complex Vit C No.3 [B 1 cap PO DAILY 06/28/23 06/28/23 Complex with Vitamin C] cloNIDine [Catapres] 0.1 mg PO Q4H PRN 06/28/23 06/28/23 hydrOXYzine pamoate [Hydroxyzine 50 mg PO Q6H PRN 06/28/23 06/28/23 Pamoate] methocarbamoL [Methocarbamol] 1,500 mg PO Q6H PRN 06/28/23 06/28/23 - Allergies Allergies/Adverse Reactions: Allergies Allergy/AdvReac Type Severity Reaction Status Date / Time No Known Drug Allergies Allergy Verified 05/22/23 21:10 - Social History Does the pt smoke?: Yes Smoking Status: Current every day smoker Does the pt drink ETOH?: Yes Does the pt have substance abuse?: Yes - Immunizations Immunizations are current?: No Immunizations: Other immun not current - POLST Patient has POLST: No PD ED PE NORMAL - Vitals Vital signs reviewed: Yes - General General: Alert and oriented X 3, No acute distress, Well developed/nourished - HEENT HEENT: Atraumatic, PERRL, EOMI, Moist mucous membranes - Neck Neck: Supple, no meningeal sign - Cardiac Cardiac: RRR, No murmur - Respiratory Respiratory: No respiratory distress, Clear bilaterally - Abdomen Abdomen: Soft, Non tender, Non distended - Derm Derm: Normal color, Warm and dry, No rash - Extremities Extremities: No deformity, No edema - Neuro Neuro: Alert and oriented X 3, mental retardation aide 2-12 intact, No motor deficit, No sensory deficit, Normal speech, Other (Slight, fine tremors when patient holds his hands out.) - Psych Psych: Normal mood, Normal affect, Other (The patient is calm and cooperative and answers questions appropriately. Occasionally speaks as though his mother is in the room and addresses her directly, then stares for a moment as if responding to internal stimuli.) Results - Vitals Vitals: Oxygen O2 Source Mechanical ventilator - EKG (time done) 1430 EKG releavant findings:: EKG personally interpreted by author of this note. Relevant findings are: Rate: Rate (enter#) (90) Rhythm: NSR [place]: Normal Intervals: Normal [place], RBBB QRS: Normal Ischemia: ST elevation c/w repol, Non specific changes Compare to prior EKG: Old EKG unavailable Computer interpretation: Disagree with computer (J-point/repol, not ischemia) - Labs Labs: Laboratory Tests 06/27/23 06/27/23 06/27/23 09:36 09:36 12:39 WBC 9.1 9.4 RBC 4.18 L 4.13 L Hgb 13.4 L 13.5 L Hct 40.6 L 39.5 L MCV 97.1 H 95.6 H MCH 32.1 H 32.7 H MCHC 33.0 34.2 RDW 12.0 11.8 L Plt Count 169 146 MPV 9.3 9.3 Neut # (Auto) 6.7 H 6.3 Lymph # (Auto) 1.0 L 1.5 Calvert # (Auto) 1.2 H 1.4 H Eos # (Auto) 0.1 0.1 Baso # (Auto) 0.1 0.1 Absolute Nucleated RBC 0.00 0.00 Nucleated RBC % 0.0 0.0 PT INR Bld Gas Analysis Time Sample Site ABG pH ABG pCO2 ABG pO2 ABG HCO3 ABG Total CO2 ABG O2 Saturation ABG Base Excess Doroteo Test Respiration Rate O2 Delivery Device Vent Mode Tidal Volume PEEP EPAP Sodium 133 L Potassium 3.1 L Chloride 97 L Carbon Dioxide 24 Anion Gap 12.0 BUN 13 Creatinine 0.7 Estimated GFR (MDRD) 134 Glucose 91 Calcium 10.4 H Total Bilirubin 0.6 AST 39 ALT 18 Alkaline Phosphatase 64 Total Protein 8.0 Albumin 4.8 Globulin 3.2 Albumin/Globulin Ratio 1.5 Lipase 140 H 06/27/23 06/27/23 06/27/23 12:39 12:39 13:30 WBC RBC Hgb Hct MCV MCH MCHC RDW Plt Count MPV Neut # (Auto) Lymph # (Auto) Calvert # (Auto) Eos # (Auto) Baso # (Auto) Absolute Nucleated RBC Nucleated RBC % PT 10.4 INR 0.9 Bld Gas Analysis Time 1330 Sample Site RIGHT RADIAL ABG pH 7.44 ABG pCO2 29 L ABG pO2 138 H ABG HCO3 19.2 L ABG Total CO2 20.1 L ABG O2 Saturation 99 H ABG Base Excess -3.7 L Doroteo Test POSITIVE Respiration Rate 16 O2 Delivery Device VENTILATOR Vent Mode SIMV Tidal Volume 450 PEEP 5 EPAP 40 Sodium 134 L Potassium 3.2 L Chloride 98 L Carbon Dioxide 21 Anion Gap 15.0 H BUN 10 Creatinine 0.6 Estimated GFR (MDRD) 160 Glucose 133 H Calcium 10.0 Total Bilirubin 0.7 AST 38 ALT 18 Alkaline Phosphatase 64 Total Protein 8.0 Albumin 4.8 Globulin 3.2 Albumin/Globulin Ratio 1.5 Lipase - Rads (name of study) Chest XR Relevant Findings:: Final report received, See rad report (no PTX) Procedures - Intubation - Major Provider: Emergency physician Medications: Ativan, Succinylcholine, Vecuronium Blade: Woodward Tube: Size-enter number (7.5), Cuffed Route: Oral Confirmation: Direct visualization, Bilateral breath sounds, No abdominal breath sound, End tidal CO2, Pulse ox, Chest xray Complications: No compications - Central Line - Major Central Line Preparation: Unable to obtain consent, Sterile prep and drape Central line type: Triple lumen Central line aftercare: Chlorhexidine disc placed, Secured, Placement confirmed, No pneumothorax, No complications, Pt tolerated well PD Medical Decision Making - ED course Complexity details: reviewed results, re-evaluated patient, considered differential, d/w patient ED course: The patient was calm, cooperative, and overall, appropriate. He was very much aware of his surroundings and recent events. He did seem to have a fixed delusion/hallucination of his mother being with him, but did not display any other psychosis. He was slightly hypertensive at 141/100, though he had not taken his usual metoprolol this morning for established hypertension. He was slightly tachycardic in the upper 90s to low 100s. He was not sweating, nauseated, or significantly tremulous. I did consider delirium tremens, though the patient clinically does not present a convincing case for this. I treated him with IV fluids and phenobarbital initially and obtained labs including CBC and ER abdominal panel. Ove the course of the pt's stay, he became increasingly agitated, and hallucinations expanded beyond just seeing his mother, to believing swarms of bees were stinging his legs and people were trying to attack him. The pt received multiple doses of Ativan, as well as Haldol and Valium. He remained mildly tachycardic and mild to moderately hypertensive, and it was clear at that point that the pt was indeed in delirium tremens after all. He required 4 point restraints, and despite all of the medication, was still thrashing and straining at the restraints. The pt pulled out his IV twice, and it became clear that in order to adequately control his symptoms and keep him from pulling lines and monitor leads, that he would need to be intubated and heavily sedated. The pt was paralyzed and intubated as above. He was given a spot dose of Ativan 4 mg and reparalyzed while pharmacy was preparing the Ativan drip. He ended up requiring maximum dosing on Ativan drip, and Precedex was then ordered on top of this because the patient was still intermittently squirming and straining. With the addition of Precedex, we were finally able to get the patient adequately sedated. I discussed the case with Dr. Colon, who was on hospitalist duty, and she did agree to accept the patient for admission. - Critical Care Time(min): 60 Comments: Critical care time was necessary, due to high probability of imminent decline and , secondary to acute delirium tremens in the setting of chronic alcohol abuse. Time Includes: Direct patient care, Review records, Reassess patient, Document care, Coordinate care, Medical consult, See progress note Data interpretation: Labs, Pulse ox, ABG, CXR, Cardiac output, See progress note Procedures included in critical care time: Ventilator mgmt, See progress note Departure - Departure Disposition: 66 [facility] DC/Xfer Clinical Impression: Delirium tremens Condition: Critical Discharge Date/Time: 06/27/23 16:00
[2023-06-27 09:44] LABS: BASOPHILS # (AUTO) 0.1 10^3/uL (0.0-0.1); BASOPHILS % (AUTO) 1.1 %; EOSINOPHILS # (AUTO) 0.1 10^3/uL (0.0-0.7); EOSINOPHILS % (AUTO) 0.9 %; HCT - HEMATOCRIT 40.6 % (42.0-52.0); HGB - HEMOGLOBIN 13.4 g/dL (14.0-18.0); LYMPHOCYTES % (AUTO) 10.4 %; MEAN CORPUSCULAR HEMOGLOBIN 32.1 pg (27.0-31.0); MEAN CORPUSCULAR VOLUME 97.1 fL (80.0-94.0); MEAN PLATELET VOLUME 9.3 fL (7.4-11.4); MONOCYTES # (AUTO) 1.2 10^3/uL (0.0-1.0); MONOCYTES % (AUTO) 13.6 %; NEUTROPHILS # (AUTO) 6.7 10^3/uL (1.5-6.6); NEUTROPHILS % (AUTO) 73.8 %; PLT - PLATELET COUNT 169 10^3/uL (130-450); RED BLOOD COUNT 4.18 10^6/uL (4.70-6.10); WHITE BLOOD COUNT 9.1 x10^3/uL (4.8-10.8)
[2023-06-27 10:04] LABS: ALBUMIN 4.8 g/dL (3.2-5.5); ALBUMIN/GLOBULIN RATIO 1.5 (1.0-2.2); BILIRUBIN,TOTAL 0.6 mg/dL (0.2-1.0); CALCIUM 10.4 mg/dL (8.5-10.3); CREATININE 0.7 mg/dL (0.6-1.3); POTASSIUM 3.1 mmol/L (3.5-4.5)
[2023-06-27] MEDS ORDERED: OLANZapine ODT 5 MG TABLET TL ONE (10:26)
[2023-06-27] MEDS ORDERED: LORazepam 1 MG TABLET PO STA (10:26)
[2023-06-27] MEDS ORDERED: LORazepam 2 MG/ML VIAL IVP STA ×3 (11:14→12:43)
[2023-06-27] MEDS ORDERED: HALOPERIDOL 5 MG/ML VIAL IVP STA (11:28)
[2023-06-27] MEDS ORDERED: KETAMINE 500 MG/10 ML VIAL IVP STA (11:44)
[2023-06-27] MEDS: diazePAM INJ 5 MG/ML SYRINGE IVP PRN (11:45)
--- NOTE | 2023-06-27 11:55 | ED Physician Documentation ---
Restraint Enro-cs-Alrz - Immediate Situation Face to Face Evaluation Date: 06/27/23 Face to Face Evaluation Time: 11:45 Restraint Classification: Violent, chemical - Patient's Reaction & Behaviors Safety: Physically safe Verbal: Crying/Tearful, Screaming/Yelling Harm: Potential harm to self Physical: Aggressive behavior Other: Attempting removal of medically necessary device(s) (pulled out IV) - Behavioral Condition Attitude: Other (upset, tearful) Behavior: Uncooperative, Agitated Orientation: Person Mood: Labile, Anxious - Evaluation Current Medical Condition Relating to Need for Restraint: delirium tremens Pertinent History/Illicit Drugs/Medications/Results: alcohol abuse - Plan Need to Initiate/Renew Violent or Chemical Restraint: will reassess
--- NOTE | 2023-06-27 12:00 | ED Physician Documentation ---
Restraint Mees-qh-Csuh - Immediate Situation Face to Face Evaluation Date: 06/27/23 Face to Face Evaluation Time: 11:45 Restraint Classification: Violent, physical - Patient's Reaction & Behaviors Safety: Physically safe, Non-compliant Verbal: Screaming/Yelling Harm: Potential harm to self Physical: Aggressive behavior, Fighting restraints - Behavioral Condition Attitude: Other (upset) Behavior: Agitated Orientation: Person Mood: Labile - Evaluation Current Medical Condition Relating to Need for Restraint: delirium tremens Pertinent History/Illicit Drugs/Medications/Results: alcohol abuse
[2023-06-27] MEDS ORDERED: SUCCINYLCHOLINE 200 MG/10 ML VIAL IVP STA (12:17)
[2023-06-27] MEDS ORDERED: VECURONIUM 10 MG VIAL IVP STA ×3 (12:17→14:46)
[2023-06-27 12:54] LABS: INR 0.9 (0.8-1.2); PT - PROTHROMBIN TIME 10.4 secs (9.9-12.6)
[2023-06-27 12:57] LABS: BASOPHILS # (AUTO) 0.1 10^3/uL (0.0-0.1); BASOPHILS % (AUTO) 1.1 %; EOSINOPHILS # (AUTO) 0.1 10^3/uL (0.0-0.7); HCT - HEMATOCRIT 39.5 % (42.0-52.0); HGB - HEMOGLOBIN 13.5 g/dL (14.0-18.0); LYMPHOCYTES # (AUTO) 1.5 10^3/uL (1.5-3.5); LYMPHOCYTES % (AUTO) 15.9 %; MEAN CORPUSCULAR HEMOGLOBIN 32.7 pg (27.0-31.0); MEAN CORPUSCULAR HGB CONC 34.2 g/dL (32.0-36.0); MEAN CORPUSCULAR VOLUME 95.6 fL (80.0-94.0); MEAN PLATELET VOLUME 9.3 fL (7.4-11.4); MONOCYTES # (AUTO) 1.4 10^3/uL (0.0-1.0); MONOCYTES % (AUTO) 14.6 %; NEUTROPHILS # (AUTO) 6.3 10^3/uL (1.5-6.6); NEUTROPHILS % (AUTO) 67.2 %; PLT - PLATELET COUNT 146 10^3/uL (130-450); RED BLOOD COUNT 4.13 10^6/uL (4.70-6.10); RED CELL DISTRIBUTION WIDTH 11.8 % (12.0-15.0); WHITE BLOOD COUNT 9.4 x10^3/uL (4.8-10.8)
[2023-06-27] MEDS ORDERED: LORazepam 100MG/100ML D5W 100 ML IV SCH (13:00)
--- NOTE | 2023-06-27 13:08 | XRAY Report ---
PROCEDURE: Chest for Line Placement INDICATIONS: Intubation TECHNIQUE: One view of the chest was acquired. COMPARISON: None. FINDINGS: Surgical changes and devices: ETT is in expected location. NGT extends below the level of the film. Lungs and pleura: No pleural effusions or pneumothorax. Lungs are clear. Mediastinum: Mediastinal contours appear normal. Heart size is normal. Bones and chest wall: No suspicious bony lesions. Overlying soft tissues appear unremarkable. IMPRESSION: No acute cardiopulmonary process. Reviewed by: Norberto Rutledge MD on 06/27/2023 1:06 PM [facility] Approved by: Norberto Rutledge MD on 06/27/2023 1:06 PM [facility] Station ID: [id number]
[2023-06-27 13:13] LABS: ALBUMIN 4.8 g/dL (3.2-5.5); ALBUMIN/GLOBULIN RATIO 1.5 (1.0-2.2); BILIRUBIN,TOTAL 0.7 mg/dL (0.2-1.0); CREATININE 0.6 mg/dL (0.6-1.3); POTASSIUM 3.2 mmol/L (3.5-4.5)
[2023-06-27] MEDS ORDERED: DEXMEDETOMIDINE 400 MCG/100 ML 100 ML IV PRN (13:15)
[2023-06-27 13:33] LABS: ABG BASE EXCESS -3.7 mmol/L (-2.0-3.0); ABG HCO3 19.2 mmol/L (22.0-26.0); ABG OXYGEN SATURATION 99 % (94-98); ABG PCO2 29 mmHg (34-45); ABG PH 7.44 (7.35-7.45); ABG PO2 138 mmHg (80-100); ABG TCO2 20.1 MMOL/L (21.0-29.0); ALLEN TEST POSITIVE
[2023-06-27 13:34] LABS: ABG MODE OF VENTILATION SIMV; ABG RESPIRATORY RATE 16 b/min
[2023-06-27] MEDS ORDERED: ONDANSETRON ODT 4 MG TABLET TL PRN (13:54)
[2023-06-27] MEDS ORDERED: ONDANSETRON 4 MG/2 ML VIAL IVP PRN (13:54)
[2023-06-27] MEDS: DEXMEDETOMIDINE 400 MCG in SODIUM CHLORIDE 0.9% 100ML 96 ML IV PRN (13:55)
[2023-06-27] MEDS ORDERED: DEXMEDETOMIDINE 400 MCG/100 ML 100 ML IV SCH (15:00)
--- NOTE | 2023-06-27 15:00 | HISTORY & PHYSICAL EXAMINATION ---
Chief Complaint - Chief Complaint Chief Complaint: ETOH WITHDRAWAL WITH INTUBATION FOR AIRWAY PROTECTION History of Present Illness - Admitted From Admitted From:: ED - History Obtained From Records Reviewed: Chart review History obtained from: Chart review, ED handoff Exam Limitations: Patient intubated, unresponsive - History of Present Illness HPI Comment/Other: Francis Meyre is a 27 yo M with a PMHx of HTN who presented to the ED via EMS from [facility] for hallucinations. He has no known psychiatric history/hx of halluc inations. He was at [facility] for the past three days, initially managed with IV fluids and prn ativan, as hallucinations persisted he was given benadryl and haldol, then transferred to the ED when hallucinations persisted. Per medics, patient had fixed visual hallucination of his mother in the room with him, though was otherwise lucid and appropriate. His vital signs were stable. In the ED, he continued to have a fixed hallucination of his mother being with him, but did not display any other psychosis. He was slightly hypertensive at 141/100, though he had not taken his usual metoprolol this morning for established hypertension. He was slightly tachycardic in the 90s-100s. He was not sweatin g, nauseated, or significantly tremulous. He was treated with IV fluids and phenobarbital initially and labs were obtained. He became increasingly more agitated, tachycardic and hypertensive and additional ativan, valium and haldol were administered. Patient continued to escalate and thrash, warranting 4 point restraints and intubation. He was placed on an ativan drip and vercuronium. Labs included WBC WNL, macrocytic anemia, sodium of 134, potassium of 3.2, AG of 15 and elevated lipase. PT and INR WNL. ABG revealed pH of 7.44. He drinks 6-8 tall boys of beer daily, unknown how long he has drank this much. He is approximately 72 hours since his last alcoholic drink. He is financially responsible for his mother, sister, and her 2 kids. There is a family hx of alcoholism with his mother and sisters. There is significant stress for him with this. Upon admission to the ICU patient is intubated and unable to participate in assessment. Attempted to call pt's mother for collateral information, unable to reach her. History - Past Medical History Cardiovascular: reports: Hypertension Respiratory: reports: None Neuro: reports: None Endocrine/Autoimmune: reports: None GI: reports: None : reports: None HEENT: reports: None Psych: reports: None Musculoskeletal: reports: None Derm: reports: None MRSA Hx?: No Other Past Medical History: Unable to confirm with patient, he is intubated - Past Surgical History Other past surgical history: Unable to confirm with patient, he is intubated - Family & Social History Family History Comment/Other: Unable to confirm with patient, he is intubated Social History Notes: Unable to confirm with patient, he is intubated - Substance History Dependence: Experiences withdrawal or developed tolerances: Alcohol - POLST Patient has POLST: No Meds/Allgy - Home Medications Home Medications: Ambulatory Orders Medication Instructions Recorded Confirmed Gabapentin [Neurontin] 300 mg PO TID 06/27/23 06/27/23 LORazepam [Ativan] 1 mg PO ONCE 06/27/23 06/27/23 Metoprolol Tartrate [Lopressor] 50 mg PO DAILY 06/27/23 06/27/23 - Allergies Allergies/Adverse Reactions: Allergies Allergy/AdvReac Type Severity Reaction Status Date / Time No Known Drug Allergies Allergy Verified 05/22/23 21:10 Review of Systems - All Other Systems All Other Systems: reports: Other (Unable to obtain, patient is intubated) Prior Level of Functionality: Unable to confirm Exam - Vital Signs Reviewed Vital Signs: Yes Vital Signs: Vital Signs x48h Temp Pulse Resp BP Pulse Ox O2 Flow Rate 06/27/23 14:51 100 06/27/23 14:38 36.5 C 87 12 134/96 H 06/27/23 14:29 36.6 C 91 12 148/103 H 100 06/27/23 13:42 36.5 C 88 16 141/99 H 100 06/27/23 13:27 36.5 C 88 16 142/97 H 100 06/27/23 13:02 98 169 H 16 L 100 06/27/23 12:52 117 H 16 102/70 100 06/27/23 12:48 120 H 16 128/94 H 100 06/27/23 12:44 121 H 16 136/105 H 100 06/27/23 12:35 137 H 23 172/114 H 100 06/27/23 12:32 162 H 20 99 06/27/23 12:29 142 H 139 H 26 L 01/11/24 12:18 147 H 26 H 142/112 H 96 06/27/23 12:10 160 H 26 H 142/112 H 96 06/27/23 11:36 110 H 06/27/23 11:31 112 H 24 161/108 H 96 06/27/23 10:46 92 18 148/108 H 100 06/27/23 09:19 37.2 C 104 H 18 141/105 H 100 - Physical Exam General Appearance: positive: Other (Well groomed, sedated patient unresponsive to stimuli) Eyes Bilateral: positive: No lid inflammation, Conjunctivae nml, Other (Pinpoint pupils, unreactive to light bilaterally) ENT: positive: Other (ET tube in place) Neck: positive: Nml inspection, No JVD Respiratory: positive: No respiratory distress, Breath sounds nml Cardiovascular: positive: Regular rate & rhythm Extremities: positive: Other (UE soft restraints bilaterally) Neurologic/Psychiatric: positive: Other (Toes and feet wiggling spontaneously. No clonus.) Reflexes: Knee (R): 2+, Knee (L): 2+ Comments/Other: Brachioradialis reflexes 2+ Conclusion/Plan - Problem List (1) Delirium tremens Conclusion/Plan: Patient drinks 6-8 beers daily, it is 72 hours since his last drink. He had visual hallucinations of his mother in the room with him, became increasingly agitated and combative. His hallucinations and vitals were refractory to benzodiazepine management and he was intubated for airway patency. His lipase is elevated likely due to alcohol use, will trend this intermittently. He also has a macrocytic anemia, likely secondary to alcohol use. Plan: - ventilator management - start banana bag - repeat daily ABG, CMP, CBC - repeat lipase intermittently (2) On mechanically assisted ventilation Conclusion/Plan: He was intubated without complications for airway patency and combativeness. Appears to be ventilating well with SIMV of 450 X 14 @.30 FiO2 +5 Peep, +12 PSV. He is maxed out on lorazepam 20 mg drip, valium prn, precedex. Plan: - continue ventilator settings as above - continue sedation as above - enoxaparin for DVT prophylaxis (3) Hyponatremia Conclusion/Plan: Sodium of 134, will give NS bolus and recheck CMP tomorrow. (4) Hypokalemia Conclusion/Plan: Potassium of 3.2, will replete and recheck tomorrow. - Lab Results Lab results reviewed: Yes Fish Bones: 06/27/23 12:39 06/27/23 12:39
--- NOTE | 2023-06-27 15:57 | XRAY Report ---
PROCEDURE: Chest for Line Placement INDICATIONS: CENTRAL LINE PLACEMENT TECHNIQUE: One view of the chest was acquired. COMPARISON: Chest x-ray 06/27/2023 FINDINGS: Surgical changes and devices: Nasogastric tube is present distal tip projecting below the left hemid iaphragm. Slightly more optimal placement would be achieved by advancing approximately 2 to 3 cm. Rig ht-sided central venous catheter is present distal tip projecting over the mid SVC. Endotracheal tube is present approximately 2.2 cm superior to the adriana. Lungs and pleura: No pleural effusions or pneumothorax. Lungs are clear. Mediastinum: Mediastinal contours appear normal. Heart size is normal. Bones and chest wall: No suspicious bony lesions. Overlying soft tissues appear unremarkable. IMPRESSION: Support lines as above. Reviewed by: Karen Fischer MD on 06/27/2023 3:56 PM PST Approved by: Karen Fischer MD on 06/27/2023 3:56 PM PST Station ID: [id number]
[2023-06-27] MEDS: LORazepam 100MG/100ML D5W 100 ML IV SCH ×2 (16:44→17:25)
[2023-06-27] MEDS ORDERED: SODIUM CHLORIDE 0.9% 500 ML IV ONE (17:23)
[2023-06-27] MEDS: SODIUM CHLORIDE FLUSH 0.9% 10 ML SYRINGE IVP SCH (17:26)
[2023-06-27] MEDS ORDERED: MULTIVITAMIN 10 ML, THIAMINE INJ 100 MG, FOLIC ACID INJ 1 MG in SODIUM CHLORIDE 0.9% 1,... IV ONE (18:00)
[2023-06-27] MEDS ORDERED: THIAMINE 100 MG/1 ML 2 ML MDV ONE (18:31)
[2023-06-27] MEDS ORDERED: SODIUM CHLORIDE 0.9% 1,000 ML ONE (18:31)
[2023-06-27] MEDS: CHLORHEXIDINE GLUCONATE 15 ML UDC PO SCH (21:04)
[2023-06-27] MEDS: FAMOTIDINE 20 MG/2 ML VIAL IVP SCH (21:04)
[2023-06-28] MEDS: DEXMEDETOMIDINE 400 MCG in SODIUM CHLORIDE 0.9% 100ML 96 ML IV PRN ×5 (01:52→22:03)
[2023-06-28] MEDS: SODIUM CHLORIDE FLUSH 0.9% 10 ML SYRINGE IVP SCH ×3 (01:56→19:00)
[2023-06-28] MEDS: LORazepam 100MG/100ML D5W 100 ML IV SCH ×5 (02:40→22:15)
[2023-06-28] MEDS: diazePAM INJ 5 MG/ML SYRINGE IVP PRN ×4 (03:03→15:35)
[2023-06-28] MEDS: SODIUM CHLORIDE 0.9% 500 ML IV PRN ×2 (03:08→20:01)
[2023-06-28] MEDS: SODIUM CHLORIDE FLUSH 0.9% 10 ML SYRINGE IVP PRN ×5 (08:19→19:09)
[2023-06-28 08:24] LABS: BASOPHILS # (AUTO) 0.1 10^3/uL (0.0-0.1); EOSINOPHILS # (AUTO) 0.1 10^3/uL (0.0-0.7); EOSINOPHILS % (AUTO) 1.4 %; HCT - HEMATOCRIT 34.7 % (42.0-52.0); HGB - HEMOGLOBIN 11.7 g/dL (14.0-18.0); LYMPHOCYTES # (AUTO) 1.5 10^3/uL (1.5-3.5); LYMPHOCYTES % (AUTO) 15.9 %; MEAN CORPUSCULAR HEMOGLOBIN 33.3 pg (27.0-31.0); MEAN CORPUSCULAR HGB CONC 33.7 g/dL (32.0-36.0); MEAN CORPUSCULAR VOLUME 98.9 fL (80.0-94.0); MEAN PLATELET VOLUME 9.2 fL (7.4-11.4); MONOCYTES # (AUTO) 1.2 10^3/uL (0.0-1.0); NEUTROPHILS # (AUTO) 6.2 10^3/uL (1.5-6.6); NEUTROPHILS % (AUTO) 68.3 %; PLT - PLATELET COUNT 120 10^3/uL (130-450); RED BLOOD COUNT 3.51 10^6/uL (4.70-6.10); RED CELL DISTRIBUTION WIDTH 12.4 % (12.0-15.0); WHITE BLOOD COUNT 9.1 x10^3/uL (4.8-10.8)
[2023-06-28 08:30] LABS: CALCIUM, IONIZED 1.21 mmol/L (1.15-1.33); VBG PH 7.343 (7.31-7.41)
[2023-06-28 08:35] LABS: CALCIUM 8.8 mg/dL (8.5-10.3); CREATININE 0.7 mg/dL (0.6-1.3); MAGNESIUM 1.8 mg/dL (1.7-2.3)
[2023-06-28] MEDS: MULTIVITAMIN 10 ML, THIAMINE INJ 100 MG, FOLIC ACID INJ 1 MG in SODIUM CHLORIDE 0.9% 1,... IV SCH (08:54)
[2023-06-28] MEDS: CHLORHEXIDINE GLUCONATE 15 ML UDC PO SCH ×2 (08:59→21:21)
[2023-06-28] MEDS: FAMOTIDINE 20 MG/2 ML VIAL IVP SCH ×2 (08:59→21:21)
[2023-06-28] MEDS: ENOXAPARIN 40 MG/0.4 ML SYRINGE SUBQ SCH (09:00)
[2023-06-28] MEDS ORDERED: MAGNESIUM SULFATE 2 GRAM 2 GM/50 ML BAG IV ONE (11:09)
[2023-06-28] MEDS: POTASSIUM CHLOR 20 MEQ/100 ML 20 MEQ/100 ML BAG IV SCH ×2 (11:36→12:34)
--- NOTE | 2023-06-28 13:12 | PROVIDER PROGRESS NOTE ---
Subjective - Subjective Pt reports feeling: No change (He was admitted to ICU from ER already intubated, on the vent and on 2 iv drips for sedation) Objective - Vital Signs/Intake & Output Vital Signs: Vital Signs Temp Pulse Pulse Resp BP Pulse Ox 06/28/23 12:00 36.2 C L 71 12 105/77 99 06/28/23 11:36 78 06/28/23 11:00 36.6 C 70 12 113/83 H 99 06/28/23 10:00 36.9 C 73 12 112/78 100 06/28/23 09:56 74 Intake & Output: Intake & Output 06/25/23 06/26/23 06/27/23 06/28/23 23:59 23:59 23:59 23:59 Intake Total 1463.043 4236.269 Output Total 620 375 Balance 4376.697 4985.269 - Objective General Appearance: positive: Lethargic (Sedated on 2 iv drips) Eyes Bilateral: positive: No lid inflammation ENT: positive: No signs of dehydration Neck: positive: Nml inspection Respiratory: positive: No respiratory distress Cardiovascular: positive: Regular rate & rhythm Abdomen: positive: No distention Skin: positive: Warm, Dry Extremities: positive: No pedal edema Neurologic/Psychiatric: positive: Other (sedated, while on tthe vent) - Lab Results Fish Bones: 07/01/23 05:15 07/01/23 11:00 Other Labs: Lab Results x24hrs 06/28/23 06/28/23 06/28/23 Range/Units 08:15 08:15 08:15 WBC (4.8-10.8) x10^3/uL RBC (4.70-6.10) 10^6/uL Hgb (14.0-18.0) g/dL Hct (42.0-52.0) % MCV (80.0-94.0) fL MCH (27.0-31.0) pg MCHC (32.0-36.0) g/dL RDW (12.0-15.0) % Plt Count (130-450) 10^3/uL MPV (7.4-11.4) fL Neut # (Auto) (1.5-6.6) 10^3/uL Lymph # (Auto) (1.5-3.5) 10^3/uL [place] # (Auto) (0.0-1.0) 10^3/uL Eos # (Auto) (0.0-0.7) 10^3/uL Baso # (Auto) (0.0-0.1) 10^3/uL Absolute Nucleated RBC x10^3/uL Nucleated RBC % /100WBC Bld Gas Analysis Time Sample Site ABG pH (7.35-7.45) ABG pCO2 (34-45) mmHg ABG pO2 (80-100) mmHg ABG HCO3 (22.0-26.0) mmol/L ABG Total CO2 (21.0-29.0) MMOL/L ABG O2 Saturation (94-98) % ABG Base Excess (-2.0-3.0) mmol/L [place] Test VBG pH 7.343 (7.31-7.41) Ionized Calcium 1.21 (1.15-1.33) mmol/L Respiration Rate b/min O2 Delivery Device Vent Mode Tidal Volume mL PEEP cmH2O EPAP cmH2O Sodium 139 (135-145) mmol/L Potassium 3.0 L (3.5-4.5) mmol/L Chloride 108 (101-111) mmol/L Carbon Dioxide 23 (21-32) mmol/L Anion Gap 8.0 (6-13) BUN 5 L (6-20) mg/dL Creatinine 0.7 (0.6-1.3) mg/dL Estimated GFR (MDRD) 134 (>89) Glucose 137 H (74-104) mg/dL Calcium 8.8 (8.5-10.3) mg/dL Phosphorus 3.4 (2.5-5.0) mg/dL Magnesium 1.8 (1.7-2.3) mg/dL Total Bilirubin (0.2-1.0) mg/dL AST (10-42) IU/L ALT (10-60) IU/L Alkaline Phosphatase (42-121) IU/L Total Protein (6.4-8.9) g/dL Albumin (3.2-5.5) g/dL Globulin (2.1-4.2) g/dL Albumin/Globulin Ratio (1.0-2.2) Nasal Screen MRSA (PCR) (NEGATIVE) 06/28/23 06/27/23 06/27/23 Range/Units 08:15 16:30 13:30 WBC 9.1 (4.8-10.8) x10^3/uL RBC 3.51 L (4.70-6.10) 10^6/uL Hgb 11.7 L (14.0-18.0) g/dL Hct 34.7 L (42.0-52.0) % MCV 98.9 H (80.0-94.0) fL MCH 33.3 H (27.0-31.0) pg MCHC 33.7 (32.0-36.0) g/dL RDW 12.4 (12.0-15.0) % Plt Count 120 L (130-450) 10^3/uL MPV 9.2 (7.4-11.4) fL Neut # (Auto) 6.2 (1.5-6.6) 10^3/uL Lymph # (Auto) 1.5 (1.5-3.5) 10^3/uL [place] # (Auto) 1.2 H (0.0-1.0) 10^3/uL Eos # (Auto) 0.1 (0.0-0.7) 10^3/uL Baso # (Auto) 0.1 (0.0-0.1) 10^3/uL Absolute Nucleated RBC 0.00 x10^3/uL Nucleated RBC % 0.0 /100WBC Bld Gas Analysis Time 1330 Sample Site RIGHT RADIAL ABG pH 7.44 (7.35-7.45) ABG pCO2 29 L (34-45) mmHg ABG pO2 138 H (80-100) mmHg ABG HCO3 19.2 L (22.0-26.0) mmol/L ABG Total CO2 20.1 L (21.0-29.0) MMOL/L ABG O2 Saturation 99 H (94-98) % ABG Base Excess -3.7 L (-2.0-3.0) mmol/L [place]o Test POSITIVE VBG pH (7.31-7.41) Ionized Calcium (1.15-1.33) mmol/L Respiration Rate 16 b/min O2 Delivery Device VENTILATOR Vent Mode SIMV Tidal Volume 450 mL PEEP 5 cmH2O EPAP 40 cmH2O Sodium (135-145) mmol/L Potassium (3.5-4.5) mmol/L Chloride (101-111) mmol/L Carbon Dioxide (21-32) mmol/L Anion Gap (6-13) BUN (6-20) mg/dL Creatinine (0.6-1.3) mg/dL Estimated GFR (MDRD) (>89) Glucose (74-104) mg/dL Calcium (8.5-10.3) mg/dL Phosphorus (2.5-5.0) mg/dL Magnesium (1.7-2.3) mg/dL Total Bilirubin (0.2-1.0) mg/dL AST (10-42) IU/L ALT (10-60) IU/L Alkaline Phosphatase (42-121) IU/L Total Protein (6.4-8.9) g/dL Albumin (3.2-5.5) g/dL Globulin (2.1-4.2) g/dL Albumin/Globulin Ratio (1.0-2.2) Nasal Screen MRSA (PCR) NEGATIVE (NEGATIVE) 06/27/23 06/27/23 Range/Units 12:39 12:39 WBC 9.4 (4.8-10.8) x10^3/uL RBC 4.13 L (4.70-6.10) 10^6/uL Hgb 13.5 L (14.0-18.0) g/dL Hct 39.5 L (42.0-52.0) % MCV 95.6 H (80.0-94.0) fL MCH 32.7 H (27.0-31.0) pg MCHC 34.2 (32.0-36.0) g/dL RDW 11.8 L (12.0-15.0) % Plt Count 146 (130-450) 10^3/uL MPV 9.3 (7.4-11.4) fL Neut # (Auto) 6.3 (1.5-6.6) 10^3/uL Lymph # (Auto) 1.5 (1.5-3.5) 10^3/uL [place] # (Auto) 1.4 H (0.0-1.0) 10^3/uL Eos # (Auto) 0.1 (0.0-0.7) 10^3/uL Baso # (Auto) 0.1 (0.0-0.1) 10^3/uL Absolute Nucleated RBC 0.00 x10^3/uL Nucleated RBC % 0.0 /100WBC Bld Gas Analysis Time Sample Site ABG pH (7.35-7.45) ABG pCO2 (34-45) mmHg ABG pO2 (80-100) mmHg ABG HCO3 (22.0-26.0) mmol/L ABG Total CO2 (21.0-29.0) MMOL/L ABG O2 Saturation (94-98) % ABG Base Excess (-2.0-3.0) mmol/L [place] Test VBG pH (7.31-7.41) Ionized Calcium (1.15-1.33) mmol/L Respiration Rate b/min O2 Delivery Device Vent Mode Tidal Volume mL PEEP cmH2O EPAP cmH2O Sodium 134 L (135-145) mmol/L Potassium 3.2 L (3.5-4.5) mmol/L Chloride 98 L (101-111) mmol/L Carbon Dioxide 21 (21-32) mmol/L Anion Gap 15.0 H (6-13) BUN 10 (6-20) mg/dL Creatinine 0.6 (0.6-1.3) mg/dL Estimated GFR (MDRD) 160 (>89) Glucose 133 H (74-104) mg/dL Calcium 10.0 (8.5-10.3) mg/dL Phosphorus (2.5-5.0) mg/dL Magnesium (1.7-2.3) mg/dL Total Bilirubin 0.7 (0.2-1.0) mg/dL AST 38 (10-42) IU/L ALT 18 (10-60) IU/L Alkaline Phosphatase 64 (42-121) IU/L Total Protein 8.0 (6.4-8.9) g/dL Albumin 4.8 (3.2-5.5) g/dL Globulin 3.2 (2.1-4.2) g/dL Albumin/Globulin Ratio 1.5 (1.0-2.2) Nasal Screen MRSA (PCR) (NEGATIVE) Assessment/Plan - Problem List (1) Delirium tremens Impression: Patient drinks 6-8 beers daily. He was at [facility] and at 72 hours since his last drink, he had visual hallucinations of his mother in the room with him, became increasingly agitated and combative. In the ER, his hallucinations and vitals were refractory to benzodiazepine management and he was intubated and put on tghe vent for airway ventilation, to use higher sedatives. His lipase was elevated slightly at 140 likely due to alcohol use. He also has a macrocytic anemia, likely secondary to alcohol use. Plan: Remain in ICU on sedatives today, to get through alcohol withdrawl, and cont ventilator management. No weaning off vent yet today. Cont banana bag Will repeat lipase intermittently His med list shows he was on Metoprolol at home, which I will restart, as it will help with managing anxiety slt and prevent tachycardia (2) On mechanically assisted ventilation Conclusion/Plan: He was intubated without complications for airway patency and for providing adequate ventilation so that higher sedatives could be used for combativeness. He is on lorazepam drip, valium prn iv pushes based on RASS score, and precedex drip. He is still able to awaken despite these 2 iv sedative drips Plan: Continue ventilator support Continue sedation as above and I will add a Fentanyl drip, since possibly he has pain (multiple ecchymoses of legs noted) Enoxaparin for DVT prophylaxis (3) Hyponatremia Conclusion/Plan: Sodium of 134, He got an NS bolus Plan: Cont iv fluids w/ Banana Bag today Follow BMP daily (4) Hypokalemia Conclusion/Plan: From poor intake due to alcohol abuse, likely Plan: Follow BMP daily and replace electrolytes if low
--- NOTE | 2023-06-28 15:00 | PHARMACY PROGRESS NOTE ---
- Best Possible Medication History Admit Date and Time: 06/27/23 1358 Processed by: Pharmacy Medication History completed: Yes Secondary Source(s): Facility MAR as ONLY source ([facility] / [facility]) As the person ultimately responsible for medication therapy, providers are able to order a medication from an existing home medication list in [facility] via the "Reconcile Routine" prior to Confirmation of that medication by office support associate. Such practice is discouraged except when the physician, in their clinical judgment, deems that a medical need exists for a medication without regard to previous use.
[2023-06-28 15:15] LABS: POTASSIUM 3.6 mmol/L (3.5-4.5)
[2023-06-28] MEDS: fentaNYL 2,500 MCG/250 ML 2,500 MCG/250 ML BAG IV SCH (15:55)
[2023-06-28] MEDS ORDERED: fentaNYL 2,500 MCG in SODIUM CHLORIDE 0.9% 200 ML IV SCH (16:00)
[2023-06-28 16:31] LABS: MAGNESIUM 2.3 mg/dL (1.7-2.3)
[2023-06-28] MEDS ORDERED: POTASSIUM CHLOR 20 MEQ/100 ML 20 MEQ/100 ML BAG IV ONE ×2 (16:32→20:19)
[2023-06-29] MEDS: SODIUM CHLORIDE FLUSH 0.9% 10 ML SYRINGE IVP SCH ×3 (00:36→17:51)
[2023-06-29] MEDS ORDERED: POTASSIUM CHLOR 20 MEQ/100 ML 20 MEQ/100 ML BAG IV ONE ×3 (01:02→18:37)
[2023-06-29] MEDS: ACETAMINOPHEN 1,000 MG/100 ML 1,000 MG/100 ML BAG IV PRN ×3 (02:53→20:33)
[2023-06-29] MEDS ORDERED: SODIUM CHLORIDE 0.9% 1,000 ML IV ONE ×2 (04:25→06:04)
[2023-06-29] MEDS: LORazepam 100MG/100ML D5W 100 ML IV SCH ×2 (04:44→12:35)
[2023-06-29 04:59] LABS: BASOPHILS # (AUTO) 0.1 10^3/uL (0.0-0.1); BASOPHILS % (AUTO) 0.9 %; EOSINOPHILS # (AUTO) 0.2 10^3/uL (0.0-0.7); EOSINOPHILS % (AUTO) 1.5 %; HCT - HEMATOCRIT 34.8 % (42.0-52.0); HGB - HEMOGLOBIN 11.1 g/dL (14.0-18.0); LYMPHOCYTES # (AUTO) 1.6 10^3/uL (1.5-3.5); LYMPHOCYTES % (AUTO) 12.3 %; MEAN CORPUSCULAR HEMOGLOBIN 32.6 pg (27.0-31.0); MEAN CORPUSCULAR HGB CONC 31.9 g/dL (32.0-36.0); MEAN CORPUSCULAR VOLUME 102.4 fL (80.0-94.0); MEAN PLATELET VOLUME 9.9 fL (7.4-11.4); MONOCYTES # (AUTO) 1.2 10^3/uL (0.0-1.0); MONOCYTES % (AUTO) 9.4 %; NEUTROPHILS # (AUTO) 9.7 10^3/uL (1.5-6.6); NEUTROPHILS % (AUTO) 75.4 %; PLT - PLATELET COUNT 149 10^3/uL (130-450); RED CELL DISTRIBUTION WIDTH 12.6 % (12.0-15.0); WHITE BLOOD COUNT 12.9 x10^3/uL (4.8-10.8)
[2023-06-29 05:13] LABS: CALCIUM, IONIZED 1.22 mmol/L (1.15-1.33); VBG PH 7.276 (7.31-7.41)
[2023-06-29 06:32] LABS: CALCIUM 8.4 mg/dL (8.5-10.3); CREATININE 0.7 mg/dL (0.6-1.3); MAGNESIUM 1.7 mg/dL (1.7-2.3); PHOSPHORUS 2.7 mg/dL (2.5-5.0); POTASSIUM 3.8 mmol/L (3.5-4.5)
[2023-06-29] MEDS ORDERED: MAGNESIUM SULFATE 2 GRAM 2 GM/50 ML BAG IV ONE ×2 (06:51→18:37)
[2023-06-29] MEDS: diazePAM INJ 5 MG/ML SYRINGE IVP PRN ×3 (07:24→15:48)
--- NOTE | 2023-06-29 07:47 | PROVIDER PROGRESS NOTE ---
Subjective - Subjective Pt reports feeling: Worse (Febrile, has sputum) Objective - Vital Signs/Intake & Output Reviewed Vital Signs: Yes Vital Signs: Vital Signs Temp Pulse Pulse Resp BP Pulse Ox 06/29/23 07:00 36.6 C 81 14 89/70 L 94 06/29/23 06:00 36.7 C 72 12 82/57 L 97 06/29/23 05:45 72 06/29/23 05:36 83/56 L 06/29/23 05:00 37.0 C 73 12 82/57 L 97 06/29/23 04:00 37.1 C 71 12 78/54 L 96 Intake & Output: Intake & Output 06/26/23 06/27/23 06/28/23 06/29/23 23:59 23:59 23:59 23:59 Intake Total 2332.914 6533.543 1561.914 Output Total 620 1135 287 Balance 2337.037 3858.543 1274.914 - Objective General Appearance: positive: Other (Sedated on iv drips) Eyes Bilateral: positive: Other (Lid inflammation) ENT: positive: No signs of dehydration, Other (ET tube and og tube in place) Neck: positive: Nml inspection Respiratory: positive: No respiratory distress (is on the vent), Other (suctioning yellow phlegm by RT) Cardiovascular: positive: Regular rate & rhythm, No murmur Abdomen: positive: No distention Skin: positive: Warm, Dry Extremities: positive: No pedal edema, Other (Many ecchymoses) Neurologic/Psychiatric: positive: Other (Sedated on iv drips) - Lab Results Fish Bones: 06/29/23 04:20 06/29/23 16:30 Other Labs: Lab Results x24hrs 06/29/23 06/29/23 06/29/23 Range/Units 04:20 04:20 04:20 WBC 12.9 H (4.8-10.8) x10^3/uL RBC 3.40 L (4.70-6.10) 10^6/uL Hgb 11.1 L (14.0-18.0) g/dL Hct 34.8 L (42.0-52.0) % MCV 102.4 H (80.0-94.0) fL MCH 32.6 H (27.0-31.0) pg MCHC 31.9 L (32.0-36.0) g/dL RDW 12.6 (12.0-15.0) % Plt Count 149 (130-450) 10^3/uL MPV 9.9 (7.4-11.4) fL Neut # (Auto) 9.7 H (1.5-6.6) 10^3/uL Lymph # (Auto) 1.6 (1.5-3.5) 10^3/uL [place] # (Auto) 1.2 H (0.0-1.0) 10^3/uL Eos # (Auto) 0.2 (0.0-0.7) 10^3/uL Baso # (Auto) 0.1 (0.0-0.1) 10^3/uL Absolute Nucleated RBC 0.00 x10^3/uL Nucleated RBC % 0.0 /100WBC VBG pH 7.276 L (7.31-7.41) Ionized Calcium 1.22 (1.15-1.33) mmol/L Sodium 138 (135-145) mmol/L Potassium 3.8 (3.5-4.5) mmol/L Chloride 116 H (101-111) mmol/L Carbon Dioxide 21 (21-32) mmol/L Anion Gap 1.0 L (6-13) BUN 4 L (6-20) mg/dL Creatinine 0.7 (0.6-1.3) mg/dL Estimated GFR (MDRD) 134 (>89) Glucose 105 H (74-104) mg/dL Calcium 8.4 L (8.5-10.3) mg/dL Phosphorus 2.7 (2.5-5.0) mg/dL Magnesium 1.7 (1.7-2.3) mg/dL Lipase 82 (11-82) U/L 06/29/23 06/28/23 06/28/23 Range/Units 00:22 19:00 14:37 WBC (4.8-10.8) x10^3/uL RBC (4.70-6.10) 10^6/uL Hgb (14.0-18.0) g/dL Hct (42.0-52.0) % MCV (80.0-94.0) fL MCH (27.0-31.0) pg MCHC (32.0-36.0) g/dL RDW (12.0-15.0) % Plt Count (130-450) 10^3/uL MPV (7.4-11.4) fL Neut # (Auto) (1.5-6.6) 10^3/uL Lymph # (Auto) (1.5-3.5) 10^3/uL [place] # (Auto) (0.0-1.0) 10^3/uL Eos # (Auto) (0.0-0.7) 10^3/uL Baso # (Auto) (0.0-0.1) 10^3/uL Absolute Nucleated RBC x10^3/uL Nucleated RBC % /100WBC VBG pH (7.31-7.41) Ionized Calcium (1.15-1.33) mmol/L Sodium (135-145) mmol/L Potassium 3.6 3.6 3.6 (3.5-4.5) mmol/L Chloride (101-111) mmol/L Carbon Dioxide (21-32) mmol/L Anion Gap (6-13) BUN (6-20) mg/dL Creatinine (0.6-1.3) mg/dL Estimated GFR (MDRD) (>89) Glucose (74-104) mg/dL Calcium (8.5-10.3) mg/dL Phosphorus (2.5-5.0) mg/dL Magnesium 2.3 (1.7-2.3) mg/dL Lipase (11-82) U/L 06/28/23 06/28/23 06/28/23 Range/Units 08:15 08:15 08:15 WBC (4.8-10.8) x10^3/uL RBC (4.70-6.10) 10^6/uL Hgb (14.0-18.0) g/dL Hct (42.0-52.0) % MCV (80.0-94.0) fL MCH (27.0-31.0) pg MCHC (32.0-36.0) g/dL RDW (12.0-15.0) % Plt Count (130-450) 10^3/uL MPV (7.4-11.4) fL Neut # (Auto) (1.5-6.6) 10^3/uL Lymph # (Auto) (1.5-3.5) 10^3/uL [place] # (Auto) (0.0-1.0) 10^3/uL Eos # (Auto) (0.0-0.7) 10^3/uL Baso # (Auto) (0.0-0.1) 10^3/uL Absolute Nucleated RBC x10^3/uL Nucleated RBC % /100WBC VBG pH 7.343 (7.31-7.41) Ionized Calcium 1.21 (1.15-1.33) mmol/L Sodium 139 (135-145) mmol/L Potassium 3.0 L (3.5-4.5) mmol/L Chloride 108 (101-111) mmol/L Carbon Dioxide 23 (21-32) mmol/L Anion Gap 8.0 (6-13) BUN 5 L (6-20) mg/dL Creatinine 0.7 (0.6-1.3) mg/dL Estimated GFR (MDRD) 134 (>89) Glucose 137 H (74-104) mg/dL Calcium 8.8 (8.5-10.3) mg/dL Phosphorus 3.4 (2.5-5.0) mg/dL Magnesium 1.8 (1.7-2.3) mg/dL Lipase (11-82) U/L 06/28/23 Range/Units 08:15 WBC 9.1 (4.8-10.8) x10^3/uL RBC 3.51 L (4.70-6.10) 10^6/uL Hgb 11.7 L (14.0-18.0) g/dL Hct 34.7 L (42.0-52.0) % MCV 98.9 H (80.0-94.0) fL MCH 33.3 H (27.0-31.0) pg MCHC 33.7 (32.0-36.0) g/dL RDW 12.4 (12.0-15.0) % Plt Count 120 L (130-450) 10^3/uL MPV 9.2 (7.4-11.4) fL Neut # (Auto) 6.2 (1.5-6.6) 10^3/uL Lymph # (Auto) 1.5 (1.5-3.5) 10^3/uL [place] # (Auto) 1.2 H (0.0-1.0) 10^3/uL Eos # (Auto) 0.1 (0.0-0.7) 10^3/uL Baso # (Auto) 0.1 (0.0-0.1) 10^3/uL Absolute Nucleated RBC 0.00 x10^3/uL Nucleated RBC % 0.0 /100WBC VBG pH (7.31-7.41) Ionized Calcium (1.15-1.33) mmol/L Sodium (135-145) mmol/L Potassium (3.5-4.5) mmol/L Chloride (101-111) mmol/L Carbon Dioxide (21-32) mmol/L Anion Gap (6-13) BUN (6-20) mg/dL Creatinine (0.6-1.3) mg/dL Estimated GFR (MDRD) (>89) Glucose (74-104) mg/dL Calcium (8.5-10.3) mg/dL Phosphorus (2.5-5.0) mg/dL Magnesium (1.7-2.3) mg/dL Lipase (11-82) U/L Assessment/Plan - Problem List (1) Metabolic acidosis Impression: ABG this a.m. ws 7.23/36/54 with bicarb 15 and satur 85% despite being on 45% FIO2 on the vent. CXR this a.m. showed a new RLL pneumonia L.[place]. was 1.3. WBC was 9 yesterday and today abraham to 12.9 He was started on a Bicarb drip Repeat ABG was 7.23/35/87 w/ Bicarb 15 and sat 96%. He then received 1 amp of Bicarb. Plan: No extubation will be undertaken today. Start NG feeds Remain on the vent and adjust settings to improve oxygenation Start empiric antibx Get bld cx w/ fever spike PCR resp swab ordered Remain in ICU on sedative drips (2) VAP (ventilator-associated pneumonia) Impression: WBC was 9 yesterday and today abraham to 12.9 Pt spiked a fever to 38.5C at 1300 and 38.8C at 1700 CXR this a.m. showed a new RLL pneumonia L.[place]. was 1.3. Plan: Will start empiric iv Zosyn Resp PCR swab ordered Will add probiotic per ng (3) Hypotension Impression: By mid-day today he became hypotensive w/ BP 80-90 syst 2 iv saline boluses of 500 cc given. Plan: Blood cx were done when he spiked a feverWill ck U/A for a possibly different infectious source, in case this is septic shock Will start iv Levophed to maintain MAP>65 Will order Echo CRITICAL CARE TIME SPENT: 60 min (eval and re-eval of pt, eval and re-eval of labs and XRays, changing orders, discussing with RN, RT and pharmacy) (4) On mechanically assisted ventilation Conclusion/Plan: He was intubated without complications for airway patency and for providing adequate ventilation so that higher sedatives could be used for handling combativeness with confusion. He is on lorazepam drip, valium prn iv pushes based on RASS score, and precedex drip. Plan: Continue ventilator support Continue sedation as in #4 Will start ng feeds since he may not be extubated soon, as was first planned (5) Delirium tremens Impression: Patient drinks 6-8 beers daily. He was at [facility] and at 72 hours after his last drink, he had visual hallucinations of his mother in the room with him, became increasingly agitated and combative. In the ER, his hallucinations and vitals were refractory to benzodiazepine management and he was intubated and put on the vent for airway ventilation, to use higher sedatives. He was on max dose iv Precedex drip and max dose iv Ativan drip and was still able to try to sit up and remove ET tube. Fentanyl drip was then ordered yesterday afternoon for better sedation. His lipase was elevated slightly at 140 likely due to alcohol use. He also has a macrocytic anemia, likely secondary to alcohol use. Plan: Remain in ICU on sedatives today, to get through alcohol withdrawl, and cont ventilator management. No weaning off vent yet today. Cont banana bag Will repeat lipase intermittently His med list shows he was on Metoprolol at home, which I will restart, as it will help with managing anxiety slt and prevent tachycardia (6) Hypokalemia Conclusion/Plan: From poor intake due to alcohol abuse, likely Plan: Follow BMP daily and replace electrolytes if low (7) Hyponatremia Conclusion/Plan: RESOLVED Sodium is 138 today after starting iv NS Plan: Cont iv fluids w/ Banana Bag today Follow BMP daily
[2023-06-29] MEDS: fentaNYL 2,500 MCG/250 ML 2,500 MCG/250 ML BAG IV SCH ×3 (07:52→22:39)
[2023-06-29] MEDS: DEXMEDETOMIDINE 400 MCG in SODIUM CHLORIDE 0.9% 100ML 96 ML IV PRN ×2 (07:55→20:51)
[2023-06-29] MEDS: SODIUM CHLORIDE FLUSH 0.9% 10 ML SYRINGE IVP PRN ×3 (08:00→19:41)
--- NOTE | 2023-06-29 08:14 | XRAY Report ---
PROCEDURE: Chest 1V INDICATIONS: Hypoxia, is on vent TECHNIQUE: One view of the chest was acquired. COMPARISON: 06/27/2023. FINDINGS: Surgical changes and devices: ET tube tip is approximately 3.1 cm above the adriana. Right-sided cent ral venous catheter tip is in SVC. NG tube tip is in the expected location of stomach lumen.. Lungs and pleura: No pleural effusions or pneumothorax. Subtle hazy opacity in right infrahilar jacy on is seen concerning for developing right lower lobe infiltrate which is a new finding since previou s study.. Mediastinum: Mediastinal contours appear normal. Heart size is normal. Bones and chest wall: No suspicious bony lesions. Overlying soft tissues appear unremarkable. IMPRESSION: Finding is concerning for developing right lower lobe infiltrate. No significant pleural effusion. No gross pneumothorax. Reviewed by: Josh Hargrove MD on 06/29/2023 8:12 AM PST Approved by: Josh Hargrove MD on 06/29/2023 8:12 AM PST Station ID: [id number]
[2023-06-29 08:15] LABS: ABG BASE EXCESS -12.1 mmol/L (-2.0-3.0); ABG HCO3 14.6 mmol/L (22.0-26.0); ABG PCO2 36 mmHg (34-45); ABG PH 7.23 (7.35-7.45); ABG PO2 54 mmHg (80-100); ABG TCO2 15.7 MMOL/L (21.0-29.0)
[2023-06-29 08:16] LABS: ABG MODE OF VENTILATION SIMV; ABG RESPIRATORY RATE 12 b/min; ALLEN TEST POSITIVE
[2023-06-29 08:17] LABS: ALBUMIN 3.3 g/dL (3.2-5.5); BILIRUBIN,DIRECT 0.1 mg/dL (0.03-0.18); BILIRUBIN,TOTAL 0.5 mg/dL (0.2-1.0); TOTAL PROTEIN 5.6 g/dL (6.4-8.9)
[2023-06-29 08:19] LABS: ABG OXYGEN SATURATION 85 % (94-98)
[2023-06-29] MEDS ORDERED: PIPERACILLIN/TAZOBACTAM 3.375 GM in SODIUM CHLORIDE 0.9% MINIBAG 100 ML IV ONE (09:30)
[2023-06-29] MEDS: SODIUM BICARBONATE 150 MEQ in DEXTROSE 5% 1,000 ML IV SCH ×2 (09:42→20:49)
[2023-06-29] MEDS: METOPROLOL TARTRATE 50 MG TABLET PO SCH (09:52)
[2023-06-29] MEDS: MULTIVITAMIN 10 ML, THIAMINE INJ 100 MG, FOLIC ACID INJ 1 MG in SODIUM CHLORIDE 0.9% 1,... IV SCH (10:07)
[2023-06-29] MEDS: CHLORHEXIDINE GLUCONATE 15 ML UDC PO SCH ×2 (10:13→20:35)
[2023-06-29] MEDS: FAMOTIDINE 20 MG/2 ML VIAL IVP SCH ×2 (10:13→20:35)
[2023-06-29] MEDS ORDERED: SODIUM BICARBONATE ABBOJECT 50 MEQ/50 ML SYRINGE IVP ONE (10:21)
[2023-06-29] MEDS: ENOXAPARIN 40 MG/0.4 ML SYRINGE SUBQ SCH (10:44)
[2023-06-29 11:08] LABS: ABG PCO2 35 mmHg (34-45); ABG PH 7.26 (7.35-7.45)
[2023-06-29 11:09] LABS: ABG BASE EXCESS -10.8 mmol/L (-2.0-3.0); ABG HCO3 15.3 mmol/L (22.0-26.0); ABG MODE OF VENTILATION SIMV; ABG OXYGEN SATURATION 96 % (94-98); ABG PO2 87 mmHg (80-100); ABG TCO2 16.4 MMOL/L (21.0-29.0); ALLEN TEST POSITIVE
[2023-06-29 11:10] LABS: ABG RESPIRATORY RATE 12 b/min
[2023-06-29] MEDS: PIPERACILLIN/TAZOBACTAM 3.375 GM in SODIUM CHLORIDE 0.9% MINIBAG 100 ML IV SCH ×2 (12:47→20:35)
[2023-06-29] MEDS: SODIUM CHLORIDE 0.9% 500 ML IV PRN (12:50)
[2023-06-29] MEDS ORDERED: SODIUM CHLORIDE 0.9% 500 ML IV ONE ×2 (13:50→14:51)
[2023-06-29 15:47] LABS: B. PARAPERTUSSIS- RESP PCR PAN NOT DETECTED; B. PERTUSSIS- RESP PCR PANEL NOT DETECTED; C. PNEUMONIAE- RESP PCR PANEL NOT DETECTED; CORONAVIRUS 229E-RESP PCR NOT DETECTED; CORONAVIRUS HKU1-RESP PCR NOT DETECTED; CORONAVIRUS NL63-RESP PCR NOT DETECTED; CORONAVIRUS OC43-RESP PCR NOT DETECTED; HUMAN METAPNEUMOVIRUS NOT DETECTED; INFLUENZA A- RESP PCR PANEL NOT DETECTED; INFLUENZA B - RESP PCR PANEL NOT DETECTED; M. PNEUMONIAE- RESP PCR PANEL NOT DETECTED; PARAINFLUENZA VIRUS 1 NOT DETECTED; PARAINFLUENZA VIRUS 2 NOT DETECTED; PARAINFLUENZA VIRUS 3 NOT DETECTED; PARAINFLUENZA VIRUS 4 NOT DETECTED; RHINOVIRUS/ENTEROVIRUS NOT DETECTED; RSV- RESP PCR PANEL NOT DETECTED; SARS-CoV-2 -RESP PCR PANEL NOT DETECTED
[2023-06-29] MEDS ORDERED: NORepinephrine 8 MG in DEXTROSE 5% 250ML IV SCH (16:00)
[2023-06-29] MEDS ORDERED: NOREPINEPHRINE/0.9 % NS 8 MG/250 ML BAG IV SCH (16:00)
[2023-06-29 16:22] LABS: BILIRUBIN,URINE NEGATIVE (NEGATIVE); GLUCOSE, URINE (UA) NEGATIVE (NEGATIVE); KETONES,URINE (UA) NEGATIVE (NEGATIVE); LEUKOCYTE ESTERASE, URINE NEGATIVE (NEGATIVE); NITRITE,URINE NEGATIVE (NEGATIVE); OCCULT BLOOD,URINE NEGATIVE (NEGATIVE); PH,URINE 5.5 PH (5.0-7.5); PROTEIN,URINE TRACE mg/dL (NEGATIVE); UROBILINOGEN,URINE 0.2 (NORMAL) E.U./dL (NORMAL)
[2023-06-29 16:24] LABS: CLARITY,URINE CLEAR (CLEAR)
[2023-06-29 16:31] LABS: BACTERIA,URINE None Seen /HPF (None Seen); RBC,URINE 0-5 /HPF (0-5); SQUAMOUS EPITHELIAL CELL,UR NONE SEEN (<= Few); WBC,URINE 0-3 /HPF (0-3)
[2023-06-29 17:18] LABS: MAGNESIUM 1.8 mg/dL (1.7-2.3); POTASSIUM 3.9 mmol/L (3.5-4.5)
--- NOTE | 2023-06-29 18:33 | XRAY Report ---
PROCEDURE: Chest 1V INDICATIONS: Fever, worsening hypoxia TECHNIQUE: One view of the chest was acquired. COMPARISON: Radiograph from earlier today FINDINGS: Surgical changes and devices: ET tube at the thoracic inlet. Enteric tube courses below the diaphrag m out of the field of view however the side port projects above the GE junction.. Subclavian central line projects over the superior vena cava atrial junction. Lungs and pleura: Diffuse airspace opacities throughout the bilateral lower lobes. No pleural effusi on. Left pneumothorax. Mediastinum: Cardiomegaly. Bones and chest wall: No suspicious bony lesions. Overlying soft tissues appear unremarkable. IMPRESSION: Diffuse airspace opacities of bilateral lungs, progressed from radiograph earlier today. Enteric tube side-port projects over the GE junction, recommend advancement. Appropriate positioning of the ET tube and right central line. Reviewed by: Francis Man MD on 06/29/2023 5:32 PM AKST Approved by: Francis Man MD on 06/29/2023 5:32 PM AK Station ID: [id number]
--- NOTE | 2023-06-29 19:09 | PROVIDER PROGRESS NOTE ---
Hospitalist Cross-cover Note - Cross-Cover Note Cross-Cover Note: At ~1800 his CXR was repeated due to worsening oxygenation. CXR showed progressing diffuse airspace opacities bilaterally. BP is 100's on Levophed and iv fluids are running at ~100 cc/hr total and ng feeds at 20 cc/hr I am concerned that he may have septic shock and the lungs could be developing ARDS EKG was done which I interpreted: This shows NSR, rate 94, incomplete RBBB, inferior T wave flattening and flat T waves in V1 and V2. Since EKG from 06/27/2023, T wave flattening in V1 and V2 are new. Plan: Start Hydrocortisone 100 mg iv TID Check troponins x2, recheck Lactic acid level, check BNP I discussed plan with night RT Ja, his plat are only 15 but to keep TV low, and if needed to increase PEEP for oxygenation Monitor ABG daily and as needed Will order Echo (but today is Sat night and we have no Gem Cutter here until ). CRITICAL CARE TIME today: additional 15 min
[2023-06-29] MEDS: HYDROCORTISONE SUCCINATE 100 MG/2 ML VIAL IVP SCH (19:45)
[2023-06-30] MEDS: SODIUM CHLORIDE FLUSH 0.9% 10 ML SYRINGE IVP SCH ×3 (03:43→16:14)
[2023-06-30] MEDS: DEXMEDETOMIDINE 400 MCG in SODIUM CHLORIDE 0.9% 100ML 96 ML IV PRN (03:46)
[2023-06-30] MEDS: HYDROCORTISONE SUCCINATE 100 MG/2 ML VIAL IVP SCH ×3 (04:36→20:59)
[2023-06-30] MEDS: PIPERACILLIN/TAZOBACTAM 3.375 GM in SODIUM CHLORIDE 0.9% MINIBAG 100 ML IV SCH ×3 (04:36→20:59)
[2023-06-30] MEDS: MIDAZOLAM DRIP 50 MG/50 ML 50 MG/50 ML BAG IV SCH ×3 (04:38→18:52)
[2023-06-30 05:12] LABS: BASOPHILS # (AUTO) 0.1 10^3/uL (0.0-0.1); BASOPHILS % (AUTO) 0.9 %; EOSINOPHILS % (AUTO) 0.3 %; HCT - HEMATOCRIT 34.5 % (42.0-52.0); HGB - HEMOGLOBIN 11.2 g/dL (14.0-18.0); LYMPHOCYTES % (AUTO) 8.1 %; MEAN CORPUSCULAR HEMOGLOBIN 32.5 pg (27.0-31.0); MEAN CORPUSCULAR HGB CONC 32.5 g/dL (32.0-36.0); MEAN PLATELET VOLUME 10.1 fL (7.4-11.4); MONOCYTES # (AUTO) 1.4 10^3/uL (0.0-1.0); MONOCYTES % (AUTO) 10.8 %; NEUTROPHILS % (AUTO) 79.6 %; PLT - PLATELET COUNT 154 10^3/uL (130-450); RED BLOOD COUNT 3.45 10^6/uL (4.70-6.10); RED CELL DISTRIBUTION WIDTH 12.4 % (12.0-15.0); WHITE BLOOD COUNT 12.5 x10^3/uL (4.8-10.8)
[2023-06-30 05:22] LABS: CALCIUM, IONIZED 1.11 mmol/L (1.15-1.33); VBG PH 7.361 (7.31-7.41)
[2023-06-30 05:30] LABS: MAGNESIUM 1.9 mg/dL (1.7-2.3); PHOSPHORUS 3.3 mg/dL (2.5-5.0)
[2023-06-30 05:31] LABS: CALCIUM 7.8 mg/dL (8.5-10.3); CREATININE 0.5 mg/dL (0.6-1.3); POTASSIUM 3.4 mmol/L (3.5-4.5)
[2023-06-30] MEDS: POTASSIUM CHLOR 20 MEQ/100 ML 20 MEQ/100 ML BAG IV SCH ×2 (06:08→08:17)
[2023-06-30 06:10] LABS: ABG BASE EXCESS -1.9 mmol/L (-2.0-3.0); ABG HCO3 22.5 mmol/L (22.0-26.0); ABG OXYGEN SATURATION 97 % (94-98); ABG PCO2 37 mmHg (34-45); ABG PO2 93 mmHg (80-100); ABG TCO2 23.7 MMOL/L (21.0-29.0); ALLEN TEST POSITIVE
[2023-06-30 06:11] LABS: ABG MODE OF VENTILATION SIMV; ABG RESPIRATORY RATE 12 b/min
[2023-06-30] MEDS: fentaNYL 2,500 MCG/250 ML 2,500 MCG/250 ML BAG IV SCH ×3 (08:18→22:41)
--- NOTE | 2023-06-30 08:37 | XRAY Report ---
PROCEDURE: Chest 1V INDICATIONS: F/U infiltrates vs ARDS TECHNIQUE: One view of the chest was acquired. COMPARISON: None. FINDINGS: Surgical changes and devices: Endotracheal tube tip projects over the midthoracic trachea. Gastric t ube passes below the diaphragm. Right subclavian line tip projects over the cavoatrial junction. Lungs and pleura: Multifocal airspace opacities, left greater than right. Suspected superimposed sma ll to moderate pleural effusions. Mediastinum: Mediastinal contours appear normal. Heart size is normal. Bones and chest wall: No suspicious bony lesions. Overlying soft tissues appear unremarkable. IMPRESSION: Similar multifocal airspace opacities. Suspected superimposed small to moderate pleural effusions. Support devices project over the appropriate positions. Reviewed by: Miguel Bobby MD on 06/30/2023 8:36 AM PST Approved by: Miguel Bobby MD on 06/30/2023 8:36 AM PST Station ID: [id number]
[2023-06-30] MEDS: SODIUM BICARBONATE 150 MEQ in DEXTROSE 5% 1,000 ML IV SCH (08:38)
[2023-06-30] MEDS: FAMOTIDINE 20 MG/2 ML VIAL IVP SCH ×2 (08:42→21:15)
[2023-06-30] MEDS: CHLORHEXIDINE GLUCONATE 15 ML UDC PO SCH ×2 (08:42→21:10)
[2023-06-30] MEDS: ENOXAPARIN 40 MG/0.4 ML SYRINGE SUBQ SCH (08:42)
[2023-06-30] MEDS: METOPROLOL TARTRATE 50 MG TABLET PO SCH (09:00)
[2023-06-30] MEDS: MULTIVITAMIN 10 ML, THIAMINE INJ 100 MG, FOLIC ACID INJ 1 MG in SODIUM CHLORIDE 0.9% 1,... IV SCH (12:03)
--- NOTE | 2023-06-30 14:14 | PROVIDER PROGRESS NOTE ---
Subjective - Subjective Pt reports feeling: Improved (RN reports that when sedation was light, he was following commands and even communicated, asked where his money was) Objective - Vital Signs/Intake & Output Reviewed Vital Signs: Yes Vital Signs: Vital Signs Temp Pulse Pulse Resp BP Pulse Ox 06/30/23 13:00 37.4 C 782 H 12 115/74 96 06/30/23 12:13 68 06/30/23 12:00 37.3 C 66 12 102/62 99 06/30/23 11:00 37.3 C 70 12 102/69 98 Intake & Output: Intake & Output 06/27/23 06/28/23 06/29/23 06/30/23 23:59 23:59 23:59 23:59 Intake Total 8133.567 4602.543 7127.120 2544.181 Output Total 620 1135 1438 1335 Balance 4314.450 9029.543 5689.120 1209.181 - Objective General Appearance: positive: Other (sedated on the vent) Eyes Bilateral: positive: Other ((+) lid edema) ENT: positive: Other (ET tube and OG tube in place) Neck: positive: Nml inspection Respiratory: positive: No respiratory distress (on the vent), Breath sounds nml, Other (has alot of yellow secretions) Cardiovascular: positive: Regular rate & rhythm, No murmur Abdomen: positive: No distention Skin: positive: Warm, Dry, Other (many bruises on legs) Extremities: positive: No pedal edema Neurologic/Psychiatric: positive: Other (sedated on iv drips) - Lab Results Fish Bones: 06/30/23 04:30 06/30/23 18:00 Other Labs: Lab Results x24hrs 06/30/23 06/30/23 06/30/23 Range/Units 05:52 04:30 04:30 WBC (4.8-10.8) x10^3/uL RBC (4.70-6.10) 10^6/uL Hgb (14.0-18.0) g/dL Hct (42.0-52.0) % MCV (80.0-94.0) fL MCH (27.0-31.0) pg MCHC (32.0-36.0) g/dL RDW (12.0-15.0) % Plt Count (130-450) 10^3/uL MPV (7.4-11.4) fL Neut # (Auto) (1.5-6.6) 10^3/uL Lymph # (Auto) (1.5-3.5) 10^3/uL [place] # (Auto) (0.0-1.0) 10^3/uL Eos # (Auto) (0.0-0.7) 10^3/uL Baso # (Auto) (0.0-0.1) 10^3/uL Absolute Nucleated RBC x10^3/uL Nucleated RBC % /100WBC Bld Gas Analysis Time 0557 Sample Site RIGHT RADIAL ABG pH 7.40 (7.35-7.45) ABG pCO2 37 (34-45) mmHg ABG pO2 93 (80-100) mmHg ABG HCO3 22.5 (22.0-26.0) mmol/L ABG Total CO2 23.7 (21.0-29.0) MMOL/L ABG O2 Saturation 97 (94-98) % ABG Base Excess -1.9 (-2.0-3.0) mmol/L [place] Test POSITIVE VBG pH 7.361 (7.31-7.41) Ionized Calcium 1.11 L (1.15-1.33) mmol/L Respiration Rate 12 b/min O2 Delivery Device VENTILATOR Vent Mode SIMV FiO2 50.00 Tidal Volume 450 mL PEEP 8 cmH2O Pressure Support Vent 12 cmH2O Sodium (135-145) mmol/L Potassium (3.5-4.5) mmol/L Chloride (101-111) mmol/L Carbon Dioxide (21-32) mmol/L Anion Gap (6-13) BUN (6-20) mg/dL Creatinine (0.6-1.3) mg/dL Estimated GFR (MDRD) (>89) Glucose (74-104) mg/dL Lactic Acid (0.5-2.2) mmol/L Calcium (8.5-10.3) mg/dL Phosphorus 3.3 (2.5-5.0) mg/dL Magnesium 1.9 (1.7-2.3) mg/dL Troponin I High Sens (2.3-19.7) ng/L B-Natriuretic Peptide (5-100) pg/mL Prealbumin (17-34) mg/dL Vitamin B12 (180-914) pg/mL Folate (5.90 - >24.8) ng/mL Urine Color Urine Clarity (CLEAR) Urine pH (5.0-7.5) PH Ur Specific [place] (1.002-1.030) Urine Protein (NEGATIVE) mg/dL Urine Glucose (UA) (NEGATIVE) mg/dL Urine Ketones (NEGATIVE) mg/dL Urine Occult Blood (NEGATIVE) Urine Nitrite (NEGATIVE) Urine Bilirubin (NEGATIVE) Urine Urobilinogen (NORMAL) E.U./dL Ur Leukocyte Esterase (NEGATIVE) Urine RBC (0-5) /HPF Urine WBC (0-3) /HPF Ur Squamous Epith Cells (<= Few) Urine Bacteria (None Seen) /HPF Urine Culture Comments Nasal Adenovirus (PCR) Nasal B. parapertussis DNA (PCR) Nasal Coronavir 229E PCR Nasal Coronavir HKU1 PCR Nasal Coronavir NL63 PCR Nasal Coronavir OC43 PCR Nasal Enterovir/Rhinovir PCR Nasal Influenza B PCR Nasal Influenza A PCR Nasal Parainfluen 1 PCR Nasal Parainfluen 2 PCR Nasal Parainfluen 3 PCR Nasal Parainfluen 4 PCR Nasal RSV (PCR) Nasal B.pertussis DNA PCR Nasal C.pneumoniae (PCR) Gustavo Human Metapneumo PCR Nasal M.pneumoniae (PCR) Nasal SARS-CoV-2 (PCR) 06/30/23 06/30/23 06/30/23 Range/Units 04:30 04:30 04:30 WBC 12.5 H (4.8-10.8) x10^3/uL RBC 3.45 L (4.70-6.10) 10^6/uL Hgb 11.2 L (14.0-18.0) g/dL Hct 34.5 L (42.0-52.0) % MCV 100.0 H (80.0-94.0) fL MCH 32.5 H (27.0-31.0) pg MCHC 32.5 (32.0-36.0) g/dL RDW 12.4 (12.0-15.0) % Plt Count 154 (130-450) 10^3/uL MPV 10.1 (7.4-11.4) fL Neut # (Auto) 10.0 H (1.5-6.6) 10^3/uL Lymph # (Auto) 1.0 L (1.5-3.5) 10^3/uL [place] # (Auto) 1.4 H (0.0-1.0) 10^3/uL Eos # (Auto) 0.0 (0.0-0.7) 10^3/uL Baso # (Auto) 0.1 (0.0-0.1) 10^3/uL Absolute Nucleated RBC 0.00 x10^3/uL Nucleated RBC % 0.0 /100WBC Bld Gas Analysis Time Sample Site ABG pH (7.35-7.45) ABG pCO2 (34-45) mmHg ABG pO2 (80-100) mmHg ABG HCO3 (22.0-26.0) mmol/L ABG Total CO2 (21.0-29.0) MMOL/L ABG O2 Saturation (94-98) % ABG Base Excess (-2.0-3.0) mmol/L [place] Test VBG pH (7.31-7.41) Ionized Calcium (1.15-1.33) mmol/L Respiration Rate b/min O2 Delivery Device Vent Mode FiO2 Tidal Volume mL PEEP cmH2O Pressure Support Vent cmH2O Sodium 140 (135-145) mmol/L Potassium 3.4 L (3.5-4.5) mmol/L Chloride 107 (101-111) mmol/L Carbon Dioxide 27 (21-32) mmol/L Anion Gap 6.0 (6-13) BUN 3 L (6-20) mg/dL Creatinine 0.5 L (0.6-1.3) mg/dL Estimated GFR (MDRD) 198 (>89) Glucose 158 H (74-104) mg/dL Lactic Acid (0.5-2.2) mmol/L Calcium 7.8 L (8.5-10.3) mg/dL Phosphorus (2.5-5.0) mg/dL Magnesium (1.7-2.3) mg/dL Troponin I High Sens (2.3-19.7) ng/L B-Natriuretic Peptide (5-100) pg/mL Prealbumin < 3 L (17-34) mg/dL Vitamin B12 (180-914) pg/mL Folate (5.90 - >24.8) ng/mL Urine Color Urine Clarity (CLEAR) Urine pH (5.0-7.5) PH Ur Specific [place] (1.002-1.030) Urine Protein (NEGATIVE) mg/dL Urine Glucose (UA) (NEGATIVE) mg/dL Urine Ketones (NEGATIVE) mg/dL Urine Occult Blood (NEGATIVE) Urine Nitrite (NEGATIVE) Urine Bilirubin (NEGATIVE) Urine Urobilinogen (NORMAL) E.U./dL Ur Leukocyte Esterase (NEGATIVE) Urine RBC (0-5) /HPF Urine WBC (0-3) /HPF Ur Squamous Epith Cells (<= Few) Urine Bacteria (None Seen) /HPF Urine Culture Comments Nasal Adenovirus (PCR) Nasal B. parapertussis DNA (PCR) Nasal Coronavir 229E PCR Nasal Coronavir HKU1 PCR Nasal Coronavir NL63 PCR Nasal Coronavir OC43 PCR Nasal Enterovir/Rhinovir PCR Nasal Influenza B PCR Nasal Influenza A PCR Nasal Parainfluen 1 PCR Nasal Parainfluen 2 PCR Nasal Parainfluen 3 PCR Nasal Parainfluen 4 PCR Nasal RSV (PCR) Nasal B.pertussis DNA PCR Nasal C.pneumoniae (PCR) Gustavo Human Metapneumo PCR Nasal M.pneumoniae (PCR) Nasal SARS-CoV-2 (PCR) 06/29/23 06/29/23 06/29/23 Range/Units 17:45 17:45 17:45 WBC (4.8-10.8) x10^3/uL RBC (4.70-6.10) 10^6/uL Hgb (14.0-18.0) g/dL Hct (42.0-52.0) % MCV (80.0-94.0) fL MCH (27.0-31.0) pg MCHC (32.0-36.0) g/dL RDW (12.0-15.0) % Plt Count (130-450) 10^3/uL MPV (7.4-11.4) fL Neut # (Auto) (1.5-6.6) 10^3/uL Lymph # (Auto) (1.5-3.5) 10^3/uL [place] # (Auto) (0.0-1.0) 10^3/uL Eos # (Auto) (0.0-0.7) 10^3/uL Baso # (Auto) (0.0-0.1) 10^3/uL Absolute Nucleated RBC x10^3/uL Nucleated RBC % /100WBC Bld Gas Analysis Time Sample Site ABG pH (7.35-7.45) ABG pCO2 (34-45) mmHg ABG pO2 (80-100) mmHg ABG HCO3 (22.0-26.0) mmol/L ABG Total CO2 (21.0-29.0) MMOL/L ABG O2 Saturation (94-98) % ABG Base Excess (-2.0-3.0) mmol/L [place] Test VBG pH (7.31-7.41) Ionized Calcium (1.15-1.33) mmol/L Respiration Rate b/min O2 Delivery Device Vent Mode FiO2 Tidal Volume mL PEEP cmH2O Pressure Support Vent cmH2O Sodium (135-145) mmol/L Potassium (3.5-4.5) mmol/L Chloride (101-111) mmol/L Carbon Dioxide (21-32) mmol/L Anion Gap (6-13) BUN (6-20) mg/dL Creatinine (0.6-1.3) mg/dL Estimated GFR (MDRD) (>89) Glucose (74-104) mg/dL Lactic Acid 2.3 H (0.5-2.2) mmol/L Calcium (8.5-10.3) mg/dL Phosphorus (2.5-5.0) mg/dL Magnesium (1.7-2.3) mg/dL Troponin I High Sens 8.9 (2.3-19.7) ng/L B-Natriuretic Peptide 83 (5-100) pg/mL Prealbumin (17-34) mg/dL Vitamin B12 (180-914) pg/mL Folate (5.90 - >24.8) ng/mL Urine Color Urine Clarity (CLEAR) Urine pH (5.0-7.5) PH Ur Specific [place] (1.002-1.030) Urine Protein (NEGATIVE) mg/dL Urine Glucose (UA) (NEGATIVE) mg/dL Urine Ketones (NEGATIVE) mg/dL Urine Occult Blood (NEGATIVE) Urine Nitrite (NEGATIVE) Urine Bilirubin (NEGATIVE) Urine Urobilinogen (NORMAL) E.U./dL Ur Leukocyte Esterase (NEGATIVE) Urine RBC (0-5) /HPF Urine WBC (0-3) /HPF Ur Squamous Epith Cells (<= Few) Urine Bacteria (None Seen) /HPF Urine Culture Comments Nasal Adenovirus (PCR) Nasal B. parapertussis DNA (PCR) Nasal Coronavir 229E PCR Nasal Coronavir HKU1 PCR Nasal Coronavir NL63 PCR Nasal Coronavir OC43 PCR Nasal Enterovir/Rhinovir PCR Nasal Influenza B PCR Nasal Influenza A PCR Nasal Parainfluen 1 PCR Nasal Parainfluen 2 PCR Nasal Parainfluen 3 PCR Nasal Parainfluen 4 PCR Nasal RSV (PCR) Nasal B.pertussis DNA PCR Nasal C.pneumoniae (PCR) Gustavo Human Metapneumo PCR Nasal M.pneumoniae (PCR) Nasal SARS-CoV-2 (PCR) 06/29/23 06/29/23 06/29/23 Range/Units 16:30 14:40 12:22 WBC (4.8-10.8) x10^3/uL RBC (4.70-6.10) 10^6/uL Hgb (14.0-18.0) g/dL Hct (42.0-52.0) % MCV (80.0-94.0) fL MCH (27.0-31.0) pg MCHC (32.0-36.0) g/dL RDW (12.0-15.0) % Plt Count (130-450) 10^3/uL MPV (7.4-11.4) fL Neut # (Auto) (1.5-6.6) 10^3/uL Lymph # (Auto) (1.5-3.5) 10^3/uL [place] # (Auto) (0.0-1.0) 10^3/uL Eos # (Auto) (0.0-0.7) 10^3/uL Baso # (Auto) (0.0-0.1) 10^3/uL Absolute Nucleated RBC x10^3/uL Nucleated RBC % /100WBC Bld Gas Analysis Time Sample Site ABG pH (7.35-7.45) ABG pCO2 (34-45) mmHg ABG pO2 (80-100) mmHg ABG HCO3 (22.0-26.0) mmol/L ABG Total CO2 (21.0-29.0) MMOL/L ABG O2 Saturation (94-98) % ABG Base Excess (-2.0-3.0) mmol/L [place] Test VBG pH (7.31-7.41) Ionized Calcium (1.15-1.33) mmol/L Respiration Rate b/min O2 Delivery Device Vent Mode FiO2 Tidal Volume mL PEEP cmH2O Pressure Support Vent cmH2O Sodium (135-145) mmol/L Potassium 3.9 (3.5-4.5) mmol/L Chloride (101-111) mmol/L Carbon Dioxide (21-32) mmol/L Anion Gap (6-13) BUN (6-20) mg/dL Creatinine (0.6-1.3) mg/dL Estimated GFR (MDRD) (>89) Glucose (74-104) mg/dL Lactic Acid (0.5-2.2) mmol/L Calcium (8.5-10.3) mg/dL Phosphorus (2.5-5.0) mg/dL Magnesium 1.8 (1.7-2.3) mg/dL Troponin I High Sens (2.3-19.7) ng/L B-Natriuretic Peptide (5-100) pg/mL Prealbumin (17-34) mg/dL Vitamin B12 (180-914) pg/mL Folate (5.90 - >24.8) ng/mL Urine Color YELLOW Urine Clarity CLEAR (CLEAR) Urine pH 5.5 (5.0-7.5) PH Ur Specific [place] 1.020 (1.002-1.030) Urine Protein TRACE (NEGATIVE) mg/dL Urine Glucose (UA) NEGATIVE (NEGATIVE) mg/dL Urine Ketones NEGATIVE (NEGATIVE) mg/dL Urine Occult Blood NEGATIVE (NEGATIVE) Urine Nitrite NEGATIVE (NEGATIVE) Urine Bilirubin NEGATIVE (NEGATIVE) Urine Urobilinogen 0.2 (NORMAL) (NORMAL) E.U./dL Ur Leukocyte Esterase NEGATIVE (NEGATIVE) Urine RBC 0-5 (0-5) /HPF Urine WBC 0-3 (0-3) /HPF Ur Squamous Epith Cells NONE SEEN (<= Few) Urine Bacteria None Seen (None Seen) /HPF Urine Culture Comments NOT INDICATED Nasal Adenovirus (PCR) NOT DETECTED Nasal B. parapertussis DNA (PCR) NOT DETECTED Nasal Coronavir 229E PCR NOT DETECTED Nasal Coronavir HKU1 PCR NOT DETECTED Nasal Coronavir NL63 PCR NOT DETECTED Nasal Coronavir OC43 PCR NOT DETECTED Nasal Enterovir/Rhinovir PCR NOT DETECTED Nasal Influenza B PCR NOT DETECTED Nasal Influenza A PCR NOT DETECTED Nasal Parainfluen 1 PCR NOT DETECTED Nasal Parainfluen 2 PCR NOT DETECTED Nasal Parainfluen 3 PCR NOT DETECTED Nasal Parainfluen 4 PCR NOT DETECTED Nasal RSV (PCR) NOT DETECTED Nasal B.pertussis DNA PCR NOT DETECTED Nasal C.pneumoniae (PCR) NOT DETECTED Gustavo Human Metapneumo PCR NOT DETECTED Nasal M.pneumoniae (PCR) NOT DETECTED Nasal SARS-CoV-2 (PCR) NOT DETECTED 06/29/23 Range/Units 00:22 WBC (4.8-10.8) x10^3/uL RBC (4.70-6.10) 10^6/uL Hgb (14.0-18.0) g/dL Hct (42.0-52.0) % MCV (80.0-94.0) fL MCH (27.0-31.0) pg MCHC (32.0-36.0) g/dL RDW (12.0-15.0) % Plt Count (130-450) 10^3/uL MPV (7.4-11.4) fL Neut # (Auto) (1.5-6.6) 10^3/uL Lymph # (Auto) (1.5-3.5) 10^3/uL [place] # (Auto) (0.0-1.0) 10^3/uL Eos # (Auto) (0.0-0.7) 10^3/uL Baso # (Auto) (0.0-0.1) 10^3/uL Absolute Nucleated RBC x10^3/uL Nucleated RBC % /100WBC Bld Gas Analysis Time Sample Site ABG pH (7.35-7.45) ABG pCO2 (34-45) mmHg ABG pO2 (80-100) mmHg ABG HCO3 (22.0-26.0) mmol/L ABG Total CO2 (21.0-29.0) MMOL/L ABG O2 Saturation (94-98) % ABG Base Excess (-2.0-3.0) mmol/L [place] Test VBG pH (7.31-7.41) Ionized Calcium (1.15-1.33) mmol/L Respiration Rate b/min O2 Delivery Device Vent Mode FiO2 Tidal Volume mL PEEP cmH2O Pressure Support Vent cmH2O Sodium (135-145) mmol/L Potassium (3.5-4.5) mmol/L Chloride (101-111) mmol/L Carbon Dioxide (21-32) mmol/L Anion Gap (6-13) BUN (6-20) mg/dL Creatinine (0.6-1.3) mg/dL Estimated GFR (MDRD) (>89) Glucose (74-104) mg/dL Lactic Acid (0.5-2.2) mmol/L Calcium (8.5-10.3) mg/dL Phosphorus (2.5-5.0) mg/dL Magnesium (1.7-2.3) mg/dL Troponin I High Sens (2.3-19.7) ng/L B-Natriuretic Peptide (5-100) pg/mL Prealbumin (17-34) mg/dL Vitamin B12 762 (180-914) pg/mL Folate 19.3 (5.90 - >24.8) ng/mL Urine Color Urine Clarity (CLEAR) Urine pH (5.0-7.5) PH Ur Specific [place] (1.002-1.030) Urine Protein (NEGATIVE) mg/dL Urine Glucose (UA) (NEGATIVE) mg/dL Urine Ketones (NEGATIVE) mg/dL Urine Occult Blood (NEGATIVE) Urine Nitrite (NEGATIVE) Urine Bilirubin (NEGATIVE) Urine Urobilinogen (NORMAL) E.U./dL Ur Leukocyte Esterase (NEGATIVE) Urine RBC (0-5) /HPF Urine WBC (0-3) /HPF Ur Squamous Epith Cells (<= Few) Urine Bacteria (None Seen) /HPF Urine Culture Comments Nasal Adenovirus (PCR) Nasal B. parapertussis DNA (PCR) Nasal Coronavir 229E PCR Nasal Coronavir HKU1 PCR Nasal Coronavir NL63 PCR Nasal Coronavir OC43 PCR Nasal Enterovir/Rhinovir PCR Nasal Influenza B PCR Nasal Influenza A PCR Nasal Parainfluen 1 PCR Nasal Parainfluen 2 PCR Nasal Parainfluen 3 PCR Nasal Parainfluen 4 PCR Nasal RSV (PCR) Nasal B.pertussis DNA PCR Nasal C.pneumoniae (PCR) Gustavo Human Metapneumo PCR Nasal M.pneumoniae (PCR) Nasal SARS-CoV-2 (PCR) Assessment/Plan - Problem List (1) VAP (ventilator-associated pneumonia) Impression: WBC was 9 and abraham to 12.9 yesterday (all labs were reviewed). Pt spiked a fever yesterday and was more hypoxic. CXR yesterday showed a new RLL pneumonia. L.A. was 2.3 and he was hypotensive, needing Levophed. He was in septic shock. I started him on iv steroids yesterday Today BP and temp improved, so septic shock resolved. WBC 12.3 today CXR repoeated today and the bilateral opacities are still present Plan: Cont empiric iv Zosyn Cont probiotic per ng I will give 3 days of iv steroids and put stop date after that No extubation yet today (2) Septic shock Impression: RESOLVED Yesterday he became hypotensive w/ BP 80-90 syst. He got several saline iv boluses then needed Levophed started Levophed was weaned to off today Plan: Await bld cxresults, taken when he spiked a fever Await Echo, which was ordered to check for poss alcoholic cardiomyopathy adding to Hypotension (but today is Sun and we have no Crab Fisher here until ). (3) Metabolic acidosis Impression: RESOLVED ABG this a.m. ws 7.23/36/54 with bicarb 15 and satur 85% despite being on 45% FIO2 on the vent. CXR this a.m. showed a new RLL pneumonia L.A. was 1.3. WBC was 9 yesterday and today abraham to 12.9 He was started on a Bicarb drip Repeat ABG was 7.23/35/87 w/ Bicarb 15 and sat 96%. He then received 1 amp of Bicarb. Plan: No extubation will be undertaken today. Start NG feeds Remain on the vent and adjust settings to improve oxygenation Start empiric antibx Get bld cx w/ fever spike PCR resp swab ordered Remain in ICU on sedative drips (4) On mechanically assisted ventilation Conclusion/Plan: He was intubated without complications for airway patency and for providing adequate ventilation so that higher sedatives could be used for handling combativeness with confusion. He is on lorazepam drip, valium prn iv pushes based on RASS score, and precedex drip. Plan: Continue ventilator support Continue sedation as in #4 Will start ng feeds since he may not be extubated soon, as was first planned (5) Delirium tremens Impression: Patient drinks 6-8 beers daily. He was at [facility] and at 72 hours after his last drink, he had visual hallucinations of his mother in the room with him, became increasingly agitated and combative. In the ER, his hallucinations and vitals were refractory to benzodiazepine management and he was intubated and put on the vent for airway ventilation, to use higher sedatives. He was on max dose iv Precedex drip and max dose iv Ativan drip and was still able to try to sit up and remove ET tube. Fentanyl drip was then ordered yesterday afternoon for better sedation. His lipase was elevated slightly at 140 likely due to alcohol use. He also has a macrocytic anemia, likely secondary to alcohol use. Plan: Remain in ICU on sedatives today, to get through alcohol withdrawl, and cont ventilator management. No weaning off vent yet today. Cont banana bag Will repeat lipase intermittently His med list shows he was on Metoprolol at home, which I will restart, as it will help with managing anxiety slt and prevent tachycardia (6) Hypokalemia Conclusion/Plan: From poor intake due to alcohol abuse, likely Plan: Follow BMP daily and replace electrolytes if low (7) Hyponatremia Conclusion/Plan: RESOLVED w/ iv NS
[2023-06-30] MEDS ORDERED: DEXMEDETOMIDINE 400 MCG/100 ML 100 ML IV PRN ×2 (14:36→23:00)
[2023-06-30] MEDS: METOCLOPRAMIDE 10 MG/2 ML VIAL IVP SCH ×2 (14:38→21:06)
[2023-06-30] MEDS ORDERED: POTASSIUM CHLOR 20 MEQ/100 ML 20 MEQ/100 ML BAG IV ONE ×2 (15:31→19:46)
[2023-06-30] MEDS: SODIUM CHLORIDE 0.9% 500 ML IV PRN (20:54)
[2023-07-01] MEDS ORDERED: POTASSIUM CHLOR 20 MEQ/100 ML 20 MEQ/100 ML BAG IV ONE ×2 (00:38→07:11)
[2023-07-01] MEDS: SODIUM CHLORIDE FLUSH 0.9% 10 ML SYRINGE IVP SCH ×3 (00:48→18:33)
[2023-07-01] MEDS: MIDAZOLAM DRIP 50 MG/50 ML 50 MG/50 ML BAG IV SCH (02:09)
[2023-07-01] MEDS: fentaNYL 2,500 MCG/250 ML 2,500 MCG/250 ML BAG IV SCH (04:34)
[2023-07-01] MEDS: HYDROCORTISONE SUCCINATE 100 MG/2 ML VIAL IVP SCH (04:35)
[2023-07-01] MEDS: PIPERACILLIN/TAZOBACTAM 3.375 GM in SODIUM CHLORIDE 0.9% MINIBAG 100 ML IV SCH ×3 (04:38→21:21)
[2023-07-01] MEDS: METOCLOPRAMIDE 10 MG/2 ML VIAL IVP SCH (05:24)
[2023-07-01] MEDS: ACETAMINOPHEN 1,000 MG/100 ML 1,000 MG/100 ML BAG IV PRN ×2 (05:56→20:37)
[2023-07-01 06:21] LABS: ABG PH 7.44 (7.35-7.45)
[2023-07-01 06:22] LABS: ABG BASE EXCESS 0.2 mmol/L (-2.0-3.0); ABG HCO3 24.1 mmol/L (22.0-26.0); ABG OXYGEN SATURATION 96 % (94-98); ABG PCO2 36 mmHg (34-45); ABG PO2 78 mmHg (80-100); ABG TCO2 25.2 MMOL/L (21.0-29.0); ALLEN TEST POSITIVE
[2023-07-01 06:23] LABS: ABG MODE OF VENTILATION SIMV; ABG RESPIRATORY RATE 12 b/min
[2023-07-01 06:27] LABS: BASOPHILS % (AUTO) 0.2 %; HCT - HEMATOCRIT 32.4 % (42.0-52.0); HGB - HEMOGLOBIN 10.7 g/dL (14.0-18.0); LYMPHOCYTES % (AUTO) 7.3 %; MEAN CORPUSCULAR HEMOGLOBIN 32.8 pg (27.0-31.0); MEAN CORPUSCULAR VOLUME 99.4 fL (80.0-94.0); MEAN PLATELET VOLUME 10.8 fL (7.4-11.4); MONOCYTES # (AUTO) 1.4 10^3/uL (0.0-1.0); MONOCYTES % (AUTO) 10.3 %; NEUTROPHILS # (AUTO) 10.9 10^3/uL (1.5-6.6); NEUTROPHILS % (AUTO) 81.4 %; PLT - PLATELET COUNT 179 10^3/uL (130-450); RED BLOOD COUNT 3.26 10^6/uL (4.70-6.10); RED CELL DISTRIBUTION WIDTH 12.2 % (12.0-15.0); WHITE BLOOD COUNT 13.4 x10^3/uL (4.8-10.8)
[2023-07-01 06:39] LABS: CALCIUM, IONIZED 1.17 mmol/L (1.15-1.33); VBG PH 7.379 (7.31-7.41)
[2023-07-01 06:55] LABS: CALCIUM 8.2 mg/dL (8.5-10.3); CREATININE 0.4 mg/dL (0.6-1.3); MAGNESIUM 1.9 mg/dL (1.7-2.3); POTASSIUM 3.8 mmol/L (3.5-4.5)
[2023-07-01] MEDS: ENOXAPARIN 40 MG/0.4 ML SYRINGE SUBQ SCH (09:15)
[2023-07-01] MEDS: FAMOTIDINE 20 MG/2 ML VIAL IVP SCH ×2 (09:15→21:21)
[2023-07-01] MEDS: CHLORHEXIDINE GLUCONATE 15 ML UDC PO SCH (09:15)
--- NOTE | 2023-07-01 12:32 | PROVIDER PROGRESS NOTE ---
Subjective - Subjective Pt reports feeling: Improved (He is able to folloew commands on the vent, all sedatives turned off for several hours) Objective - Vital Signs/Intake & Output Vital Signs: Vital Signs Temp Pulse Resp BP Pulse Ox O2 Flow Rate 07/01/23 12:00 37.2 C 81 27 H 148/91 H 95 07/01/23 11:00 37.2 C 88 15 138/93 H 2 L 96 07/01/23 10:58 3 07/01/23 10:00 60 10 L 121/84 H 98 07/01/23 09:00 37.2 C 59 L 10 L 128/78 Intake & Output: Intake & Output 06/28/23 06/29/23 06/30/23 07/01/23 23:59 23:59 23:59 23:59 Intake Total 3661.543 7127.120 3993.344 2339.574 Output Total 1135 1438 1820 840 Balance 2526.543 5689.120 2173.344 1499.574 - Objective General Appearance: positive: No acute distress, Other (intubated on the vent, follows commands) Eyes Bilateral: positive: Other (Lid edema present) ENT: positive: ENT inspection nml, No signs of dehydration Neck: positive: Nml inspection, No JVD Respiratory: positive: Rhonchi (bilateral rhoncho 3/4 up) Cardiovascular: positive: Regular rate & rhythm, No murmur (distant heart sounds due to rhonchi) Abdomen: positive: No distention Skin: positive: Warm, Dry, Other (Multiple ecchymoses of extrem) Extremities: positive: Other (1+ edema) - Lab Results Fish Bones: 07/01/23 05:15 07/01/23 11:00 Other Labs: Lab Results x24hrs 07/01/23 07/01/23 07/01/23 Range/Units 11:00 05:55 05:15 WBC (4.8-10.8) x10^3/uL RBC (4.70-6.10) 10^6/uL Hgb (14.0-18.0) g/dL Hct (42.0-52.0) % MCV (80.0-94.0) fL MCH (27.0-31.0) pg MCHC (32.0-36.0) g/dL RDW (12.0-15.0) % Plt Count (130-450) 10^3/uL MPV (7.4-11.4) fL Neut # (Auto) (1.5-6.6) 10^3/uL Lymph # (Auto) (1.5-3.5) 10^3/uL [place] # (Auto) (0.0-1.0) 10^3/uL Eos # (Auto) (0.0-0.7) 10^3/uL Baso # (Auto) (0.0-0.1) 10^3/uL Absolute Nucleated RBC x10^3/uL Nucleated RBC % /100WBC Bld Gas Analysis Time 0609 Sample Site RIGHT RADIAL ABG pH 7.44 (7.35-7.45) ABG pCO2 36 (34-45) mmHg ABG pO2 78 L (80-100) mmHg ABG HCO3 24.1 (22.0-26.0) mmol/L ABG Total CO2 25.2 (21.0-29.0) MMOL/L ABG O2 Saturation 96 (94-98) % ABG Base Excess 0.2 (-2.0-3.0) mmol/L [place] Test POSITIVE VBG pH 7.379 (7.31-7.41) Ionized Calcium 1.17 (1.15-1.33) mmol/L Respiration Rate 12 b/min O2 Delivery Device VENTILATOR Vent Mode SIMV FiO2 30.00 Tidal Volume 450 mL PEEP 5 cmH2O Pressure Support Vent 12 cmH2O Sodium (135-145) mmol/L Potassium 3.5 (3.5-4.5) mmol/L Chloride (101-111) mmol/L Carbon Dioxide (21-32) mmol/L Anion Gap (6-13) BUN (6-20) mg/dL Creatinine (0.6-1.3) mg/dL Estimated GFR (MDRD) (>89) Glucose (74-104) mg/dL Calcium (8.5-10.3) mg/dL Phosphorus (2.5-5.0) mg/dL Magnesium (1.7-2.3) mg/dL 07/01/23 07/01/23 07/01/23 Range/Units 05:15 05:15 05:15 WBC 13.4 H (4.8-10.8) x10^3/uL RBC 3.26 L (4.70-6.10) 10^6/uL Hgb 10.7 L (14.0-18.0) g/dL Hct 32.4 L (42.0-52.0) % MCV 99.4 H (80.0-94.0) fL MCH 32.8 H (27.0-31.0) pg MCHC 33.0 (32.0-36.0) g/dL RDW 12.2 (12.0-15.0) % Plt Count 179 (130-450) 10^3/uL MPV 10.8 (7.4-11.4) fL Neut # (Auto) 10.9 H (1.5-6.6) 10^3/uL Lymph # (Auto) 1.0 L (1.5-3.5) 10^3/uL [place] # (Auto) 1.4 H (0.0-1.0) 10^3/uL Eos # (Auto) 0.0 (0.0-0.7) 10^3/uL Baso # (Auto) 0.0 (0.0-0.1) 10^3/uL Absolute Nucleated RBC 0.00 x10^3/uL Nucleated RBC % 0.0 /100WBC Bld Gas Analysis Time Sample Site ABG pH (7.35-7.45) ABG pCO2 (34-45) mmHg ABG pO2 (80-100) mmHg ABG HCO3 (22.0-26.0) mmol/L ABG Total CO2 (21.0-29.0) MMOL/L ABG O2 Saturation (94-98) % ABG Base Excess (-2.0-3.0) mmol/L [place] Test VBG pH (7.31-7.41) Ionized Calcium (1.15-1.33) mmol/L Respiration Rate b/min O2 Delivery Device Vent Mode FiO2 Tidal Volume mL PEEP cmH2O Pressure Support Vent cmH2O Sodium 138 (135-145) mmol/L Potassium 3.8 (3.5-4.5) mmol/L Chloride 104 (101-111) mmol/L Carbon Dioxide 27 (21-32) mmol/L Anion Gap 7.0 (6-13) BUN 7 (6-20) mg/dL Creatinine 0.4 L (0.6-1.3) mg/dL Estimated GFR (MDRD) 256 (>89) Glucose 149 H (74-104) mg/dL Calcium 8.2 L (8.5-10.3) mg/dL Phosphorus 2.7 (2.5-5.0) mg/dL Magnesium 1.9 (1.7-2.3) mg/dL 07/01/23 06/30/23 06/30/23 Range/Units 00:00 18:00 13:00 WBC (4.8-10.8) x10^3/uL RBC (4.70-6.10) 10^6/uL Hgb (14.0-18.0) g/dL Hct (42.0-52.0) % MCV (80.0-94.0) fL MCH (27.0-31.0) pg MCHC (32.0-36.0) g/dL RDW (12.0-15.0) % Plt Count (130-450) 10^3/uL MPV (7.4-11.4) fL Neut # (Auto) (1.5-6.6) 10^3/uL Lymph # (Auto) (1.5-3.5) 10^3/uL [place] # (Auto) (0.0-1.0) 10^3/uL Eos # (Auto) (0.0-0.7) 10^3/uL Baso # (Auto) (0.0-0.1) 10^3/uL Absolute Nucleated RBC x10^3/uL Nucleated RBC % /100WBC Bld Gas Analysis Time Sample Site ABG pH (7.35-7.45) ABG pCO2 (34-45) mmHg ABG pO2 (80-100) mmHg ABG HCO3 (22.0-26.0) mmol/L ABG Total CO2 (21.0-29.0) MMOL/L ABG O2 Saturation (94-98) % ABG Base Excess (-2.0-3.0) mmol/L [place] Test VBG pH (7.31-7.41) Ionized Calcium (1.15-1.33) mmol/L Respiration Rate b/min O2 Delivery Device Vent Mode FiO2 Tidal Volume mL PEEP cmH2O Pressure Support Vent cmH2O Sodium (135-145) mmol/L Potassium 3.7 3.6 3.6 (3.5-4.5) mmol/L Chloride (101-111) mmol/L Carbon Dioxide (21-32) mmol/L Anion Gap (6-13) BUN (6-20) mg/dL Creatinine (0.6-1.3) mg/dL Estimated GFR (MDRD) (>89) Glucose (74-104) mg/dL Calcium (8.5-10.3) mg/dL Phosphorus (2.5-5.0) mg/dL Magnesium (1.7-2.3) mg/dL Assessment/Plan - Problem List (1) VAP (ventilator-associated pneumonia) Impression: (1) VAP (ventilator-associated pneumonia) Impression: WBC was 9 and abraham to 12.9 on the day pt spiked a fever and was more hypoxic. That day his CXR showed a new RLL pneumonia. L.A. was 2.3 and he was in metabolic acidosis and hypotensive, needing Levophed. His resp PCR was all neg that day. He was in septic shock. I started him on iv steroids then. He was not extubated. Yesterday BP and temp and WBC 12.3 improved, so septic shock resolved. CXR still showed bilateral opacities. Today he was extubated, still has alot of rhonchi and a cough Plan: Cont empiric iv Zosyn Cont probiotic I planned 3 days of iv steroids and I did put stop date after that (2) Delirium tremens Impression: Patient drinks 6-8 beers daily. He was at [facility] and at 72 hours after his last drink, he had visual hallucinations of his mother in the room with him, became increasingly agitated and combative. In the ER, his hallucinations and vitals were refractory to benzodiazepine management and he was intubated and put on the vent for airway ventilation, to use higher sedatives. He was on max dose iv Precedex drip and max dose iv Ativan drip and was still able to try to sit up and remove ET tube. Fentanyl drip was then ordered yesterday afternoon for better sedation. His lipase was elevated slightly at 140 likely due to alcohol use. He also has a macrocytic anemia, likely secondary to alcohol use. Even after extubation today, he was confused and agitated and scored 13 on his CIWA score Plan: Remain in ICU still needs a CIWA protocol and Benzos to treat withdrawal Unfortunately I doubt he will comply with po Librium, so will con with iv med pushes His med list shows he was on Metoprolol at home, which I will restart, as it remedios l help with managing anxiety and prevent tachycardia (3) Alcohol abuse Impression: He thought he awoke at [facility], after extubation today and demanded on leaving. He was settled down verbally. He scored 13 on CIWA today. He had been on Banana Bag iv fluids while on the vent, before og feeds were started Plan: Will continue CIWA protocol scoring and give iv Valium as needed. The hospital is out of iv Ativan. Start daily vitamin po and Thiamine po When he is medically cleared he will be seen by SW (4) Tobacco use Impression: As he got extubated, the first thing he requested was a "cigarette patch". Plan: Nicotine 14 mg daily ordered (5) Hypokalemia Conclusion/Plan: From poor intake due to alcohol abuse, likely Plan: Follow BMP daily and replace electrolytes if low (6) Septic shock Impression: RESOLVED (7) Metabolic acidosis Impression: RESOLVED (8) On mechanically assisted ventilation Conclusion/Plan: He was intubated without complications for airway patency and for providing adequate ventilation so that higher sedatives could be used for handling combativeness with confusion. He was successfully extubated today
[2023-07-01] MEDS: NS W/20 MEQ KCL 1,000 ML IV SCH (12:39)
[2023-07-01] MEDS ORDERED: diazePAM 5 MG TABLET PO PRN (13:38)
[2023-07-01] MEDS: NICOTINE 14 MG PATCH TOP SCH (13:38)
[2023-07-01] MEDS: diazePAM 5 MG TABLET PO PRN (13:48)
[2023-07-01] MEDS: diazePAM INJ 5 MG/ML SYRINGE IVP PRN ×12 (14:39→23:15)
[2023-07-01] MEDS: THIAMINE 100 MG TABLET PO SCH (17:33)
[2023-07-01] MEDS: chlordiazePOXIDE 25 MG CAPSULE PO SCH (17:33)
[2023-07-01] MEDS: POTASSIUM CHLOR 20 MEQ/100 ML 20 MEQ/100 ML BAG IV SCH ×2 (18:56→20:36)
[2023-07-01] MEDS: SODIUM CHLORIDE FLUSH 0.9% 10 ML SYRINGE IVP PRN (19:59)
[2023-07-01] MEDS ORDERED: DEXMEDETOMIDINE 400 MCG/100 ML 100 ML IV PRN (20:56)
--- NOTE | 2023-07-01 21:00 | PROVIDER PROGRESS NOTE ---
Programming Specialist Note - Programming Specialist Note Programming Specialist Note: RN message: "PT was extubated this AM, for ETOH AIRWAY CONTROL. Pt CIWA > 20, Received a total DIazepam 10mg IVP x3 in the last 45 minutes HIGHLY INEFFECTIVE. PT has had a staff assist called for patient trying to pull out CENTRAL line. WHILE intubated for 72 hours pt was on MAX dose 20mg/hr ATIVAN, MAX dose precedex 1.5mcg. Currently shortage of ATIVAN. REQUESTING ORDER, for precedex GTT. PT would not benefit or tolerate being restrained given how agitated he is at this point, Will try to avoid." Chart reviewed - resumed Precedex gtt per protocol for agitation.
[2023-07-01] MEDS ORDERED: OLANZapine 10 MG VIAL IM STA (23:51)
[2023-07-02] MEDS: diazePAM INJ 5 MG/ML SYRINGE IVP PRN ×5 (00:24→12:50)
[2023-07-02] MEDS: chlordiazePOXIDE 25 MG CAPSULE PO SCH ×5 (01:00→23:12)
[2023-07-02 01:50] LABS: ABG BASE EXCESS 3.5 mmol/L (-2.0-3.0); ABG HCO3 25.9 mmol/L (22.0-26.0); ABG PCO2 32 mmHg (34-45); ABG PH 7.53 (7.35-7.45); ABG PO2 64 mmHg (80-100); ABG TCO2 26.9 MMOL/L (21.0-29.0)
[2023-07-02 01:51] LABS: ABG OXYGEN SATURATION 94 % (94-98)
[2023-07-02] MEDS ORDERED: SUCCINYLCHOLINE 200 MG/10 ML VIAL ONE (02:19)
[2023-07-02] MEDS ORDERED: MIDAZOLAM 2 MG/2 ML VIAL ONE (02:19)
[2023-07-02] MEDS ORDERED: MIDAZOLAM 2 MG/2 ML VIAL IVP ONE (02:20)
[2023-07-02] MEDS ORDERED: SUCCINYLCHOLINE 200 MG/10 ML VIAL IVP ONE (02:22)
[2023-07-02] MEDS: MIDAZOLAM DRIP 50 MG/50 ML 50 MG/50 ML BAG IV SCH ×4 (02:39→21:55)
--- NOTE | 2023-07-02 02:44 | ED Physician Documentation ---
ED Addendum - Addendum Addendum: 07/02/23 02:38 At approximately 2:15 AM today, I was asked to re-intubate this patient. In brief, patient was admitted to [facility] on June 27, 2023 for signs and symptoms related to alcohol withdrawal. The symptoms and signs were severe enough to warrant intubation in the emergency department. Patient was extubated yesterday (July 01). Per nursing staff and per the telehealth provider's notes. The patient is requiring particularly large amounts of sedatives which have had ra pidly decreasing effectiveness. He has maxed out on Precedex, has received a total of 100 mg of diazepam IV, and is also received 10 mg of Zyprexa. Despite these sedatives, the patient has exhibited increasing agitation, at times violent and thrashing. As more sedatives were given, he was also noted to have periods of hypoxia with saturations into the 70s. Thus, the telehealth provider's request intubation so that he can be adequately sedated with more medications without concern for hypopnea/hypoxia, aspiration. On my arrival, the patient is in restraints. He appears to be sedated initia lly, but as preparations were made for intubation, he does exhibit agitation, cursing at times but not responding to attempts to reorient patient and have him lie back in the bed. He is tachypneic with respiratory rate in the 30s to 40s. Pulse ox is upper 80s/low 90s despite supplemental oxygen. He is given 100 mg IV succinylcholine, 5 mg IV Versed. Intubated patient using S3 glide scope 7.5 mm ET tube. Patient desatted as low as mid-40s but this was brief (less than 30 seconds) and rapidly improved to 98-99% once intubated. Equal breath sounds bilaterally, colormetric change on color capnography. Will check post-intubation CXR 07/02/23 03:24 The post-intubation chest x-ray reviewed by me; bilateral infiltrates which appear unchanged from the previous chest x-ray. I am noting that the ET tube is just above the adriana and thus I asked the respiratory therapist to pull the ET tube back 2 cm. NG tube is noted to be below the diaphragm. Procedures - Intubation Time of Intubation: 02:25 Intubation Method: orotracheal Tube Size (cm): 7.5 Medications: Succinylcholine, Versed Breath Sounds after Intubation: equal Intubation Complications: O2 saturation decreased (mid-40s briefly (less than 30 seconds)) Post Intubation Xray: Yes
[2023-07-02] MEDS: SODIUM CHLORIDE FLUSH 0.9% 10 ML SYRINGE IVP SCH ×3 (02:49→17:13)
[2023-07-02] MEDS ORDERED: fentaNYL 2,500 MCG in SODIUM CHLORIDE 0.9% 200 ML IV SCH (03:00)
[2023-07-02] MEDS: PROPOFOL 1000 MG/100 ML 1,000 MG/100 ML BOTTLE IV SCH ×4 (03:02→20:33)
[2023-07-02] MEDS: NS W/20 MEQ KCL 1,000 ML IV SCH ×2 (03:19→19:44)
[2023-07-02] MEDS: PIPERACILLIN/TAZOBACTAM 3.375 GM in SODIUM CHLORIDE 0.9% MINIBAG 100 ML IV SCH ×3 (05:35→20:22)
[2023-07-02] MEDS: ACETAMINOPHEN 1,000 MG/100 ML 1,000 MG/100 ML BAG IV PRN (05:42)
[2023-07-02 05:48] LABS: ABG PH 7.49 (7.35-7.45)
[2023-07-02 05:49] LABS: ABG BASE EXCESS 4.8 mmol/L (-2.0-3.0); ABG HCO3 28.5 mmol/L (22.0-26.0); ABG OXYGEN SATURATION 99 % (94-98); ABG PCO2 39 mmHg (34-45); ABG TCO2 29.7 MMOL/L (21.0-29.0)
[2023-07-02 05:50] LABS: ABG MODE OF VENTILATION ASSIST/CONTROL; ABG RESPIRATORY RATE 12 b/min; ALLEN TEST POSITIVE
[2023-07-02 05:52] LABS: ABG PO2 201 mmHg (80-100)
[2023-07-02] MEDS: PANTOPRAZOLE 40 MG VIAL IVP SCH (06:36)
[2023-07-02] MEDS: PRENATAL VITAMIN TABLET PO SCH (07:51)
--- NOTE | 2023-07-02 08:19 | XRAY Report ---
PROCEDURE: Chest for Line Placement INDICATIONS: post-intubation TECHNIQUE: One view of the chest was acquired. COMPARISON: 06/30/2023, 06/29/2023, 06/27/2023. FINDINGS: Surgical changes and devices: ET tube tip is 1.3 cm above the adriana. NG tube tip is below the left hemidiaphragm. Right-sided central venous catheter tip is in the SVC.. Lungs and pleura: There is worsening of bilateral lung aeration with increased airspace opacities in bilateral lung martinez compared to previous study. No pneumothorax. Small bilateral pleural effusion i s present. Mediastinum: Mediastinal contours appear normal. Heart size is enlarged. Bones and chest wall: No suspicious bony lesions. Overlying soft tissues appear unremarkable. IMPRESSION: ET tube tip is approximately 1.3 cm above the adriana. NG tube tip is in the expected location of stom ach lumen. Interval worsening of bilateral lung aeration suggestive of worsening bilateral pulmonary infiltrates . Small bilateral pleural effusion. No pneumothorax. No significant discrepancies. Preliminary reading. Reviewed by: Josh Hargrove MD on 07/02/2023 8:17 AM PST Approved by: Josh Hargrove MD on 07/02/2023 8:17 AM PST Station ID: [id number]
[2023-07-02] MEDS: ENOXAPARIN 40 MG/0.4 ML SYRINGE SUBQ SCH (08:32)
[2023-07-02] MEDS: FAMOTIDINE 20 MG/2 ML VIAL IVP SCH ×2 (08:32→20:22)
[2023-07-02] MEDS: CHLORHEXIDINE GLUCONATE 15 ML UDC PO SCH ×2 (08:32→20:22)
[2023-07-02] MEDS: NICOTINE 14 MG PATCH TOP SCH (08:34)
[2023-07-02] MEDS: THIAMINE 100 MG TABLET PO SCH (08:35)
[2023-07-02 10:04] LABS: BASOPHILS # (AUTO) 0.1 10^3/uL (0.0-0.1); EOSINOPHILS # (AUTO) 0.1 10^3/uL (0.0-0.7); EOSINOPHILS % (AUTO) 0.8 %; HCT - HEMATOCRIT 29.7 % (42.0-52.0); HGB - HEMOGLOBIN 10.1 g/dL (14.0-18.0); LYMPHOCYTES # (AUTO) 1.8 10^3/uL (1.5-3.5); LYMPHOCYTES % (AUTO) 13.8 %; MEAN CORPUSCULAR HEMOGLOBIN 32.4 pg (27.0-31.0); MEAN CORPUSCULAR VOLUME 95.2 fL (80.0-94.0); MEAN PLATELET VOLUME 8.9 fL (7.4-11.4); MONOCYTES # (AUTO) 1.6 10^3/uL (0.0-1.0); MONOCYTES % (AUTO) 12.2 %; NEUTROPHILS # (AUTO) 9.3 10^3/uL (1.5-6.6); NEUTROPHILS % (AUTO) 71.7 %; PLT - PLATELET COUNT 228 10^3/uL (130-450); RED BLOOD COUNT 3.12 10^6/uL (4.70-6.10); WHITE BLOOD COUNT 12.9 x10^3/uL (4.8-10.8)
[2023-07-02 10:06] LABS: SLIDE REVIEW? Indicated
[2023-07-02 10:22] LABS: ALBUMIN 2.9 g/dL (3.2-5.5); ALBUMIN/GLOBULIN RATIO 1.1 (1.0-2.2); BILIRUBIN,TOTAL 0.5 mg/dL (0.2-1.0); CALCIUM 8.8 mg/dL (8.5-10.3); CREATININE 0.5 mg/dL (0.6-1.3); MAGNESIUM 1.7 mg/dL (1.7-2.3); PHOSPHORUS 1.4 mg/dL (2.5-5.0); POTASSIUM 2.8 mmol/L (3.5-4.5); TOTAL PROTEIN 5.5 g/dL (6.4-8.9)
[2023-07-02 10:28] LABS: PLATELET ESTIMATE, MANUAL NORMAL (130-450,000) (NORMAL); PLATELET MORPHOLOGY NORMAL APPEARANCE (NORMAL); RBC MORPHOLOGY (MULTIPLE) NORMAL APPEARANCE (NORMAL)
[2023-07-02] MEDS ORDERED: CALCIUM GLUC 1,000MG/50ML-NACL 1,000 MG/50 ML BAG IV ONE (10:29)
[2023-07-02] MEDS ORDERED: POTASSIUM PHOSPHATE 21 MMOL in SODIUM CHLORIDE 0.9% 250 ML IV ONE (10:29)
[2023-07-02] MEDS ORDERED: MAGNESIUM SULFATE 2 GRAM 2 GM/50 ML BAG IV ONE ×2 (10:29→22:04)
[2023-07-02] MEDS: POTASSIUM CHLOR 20 MEQ/100 ML 20 MEQ/100 ML BAG IV SCH ×6 (11:09→23:11)
--- NOTE | 2023-07-02 11:54 | PROVIDER PROGRESS NOTE ---
Subjective - Prog Note Date Prog Note Date: 07/02/23 Prog Note Time: 11:47 - Subjective Subjective: Yesterday patient was extubated, was agitated, disoriented, and scoring 13 on CIWA. He was on maxed out on Precedex, recieved 100 mg of diazepam IV, and zy prexa 10 mg. Despite this sedation he became increasingly agitated and at times violent and thrashing. He started to become hypoxic with saturations in the 70s as more sedatives were given. Supplemental oxygen was given however saturations remained in the upper 80s/low 90s, he was also tachypnic with RR in 30s to 40s. At approximately 2:15AM this morning, patient was re-intubated so he may be give n more sedative medications without concern for hypopnea, hypoxia, or aspiration. He was given 100 mg IV succinylcholine and 5 mg IV versed. Post intubation CXR revealed bilateral infiltrates that appear unchanged from prior CXR, NG tube noted below the diaphragm. Today upon assessment patient is intubated, mother is at bedside. She expresses concern and is tearful, states that the same thing happened to his father, who had DTs, was intubated, developed pneumonia and ultimately passed in his 40s. Current Medications - Current Medications Current Medications: Active Medications Chlordiazepoxide HCl (Chlordiazepoxide 25 Mg Capsule) 25 mg PO Q6HR [facility] Last Admin: 07/02/23 06:32 Dose: Not Given Chlorhexidine Gluconate (Chlorhexidine Gluconate 15 Ml Udc) 15 ml PO BID [facility] Last Admin: 07/02/23 08:32 Dose: 15 ml Diazepam (Diazepam 5 Mg Tablet) 5 mg PO Q1H PRN; Protocol PRN Reason: CIWA > 8 Last Admin: 07/01/23 13:48 Dose: 5 mg Diazepam (Diazepam Inj 5 Mg/Ml Syringe) 10 mg IVP Q30M PRN; Protocol PRN Reason: CIWA>8 Last Admin: 07/02/23 02:49 Dose: 10 mg Enoxaparin Sodium (Enoxaparin 40 Mg/0.4 Ml Syringe) 40 mg SUBQ DAILY [facility] Last Admin: 07/02/23 08:32 Dose: 40 mg Famotidine (Famotidine 20 Mg/2 Ml Vial) 20 mg IVP BID [facility] Last Admin: 07/02/23 08:32 Dose: 20 mg Acetaminophen (Acetaminophen) 1,000 mg in 100 mls @ 400 mls/hr IV Q6HR PRN PRN Reason: Moderate Pain (Level 4-6) Last Infusion: 07/02/23 06:38 Dose: Infused Piperacillin Sod/Tazobactam (Sod 3.375 gm/ Sodium Chloride) 100 mls @ 25 mls/hr IV Q8H [facility] Last Infusion: 07/02/23 09:50 Dose: Infused Potassium Chloride/Sodium Chloride (Normal Saline 0.9% W/20 Meq Kcl) 1,000 mls @ 60 mls/hr IV .[id number] [facility] Last Admin: 07/02/23 03:19 Dose: 60 mls/hr Midazolam HCl (Versed Drip 50 Mg/50 Ml) 50 mg in 50 mls @ 2.324 mls/hr IV .[id number] [facility]; Protocol Last Titration: 07/02/23 11:14 Dose: 0.08 mg/kg/hr, 4.648 mls/hr Fentanyl 2,500 mcg/ Sodium (Chloride) 250 mls @ 5.81 mls/hr IV .[id number] [facility]; P rotocol Last Titration: 07/02/23 11:13 Dose: 2 mcg/kg/hr, 11.62 mls/hr Propofol (Diprivan) 1,000 mg in 100 mls @ 3.486 mls/hr IV .[id number] [facility]; Protocol Stop: 07/04/23 02:59 Last Titration: 07/02/23 11:14 Dose: 35 mcg/kg/min, 12.201 mls/hr Potassium Phosphate 21 mmol/ (Sodium Chloride) 257 mls @ 64 mls/hr IV ONCE ONE; Protocol Stop: 07/02/23 14:29 Last Admin: 07/02/23 11:09 Dose: 64 mls/hr Potassium Chloride (Potassium Chloride) 20 meq in 100 mls @ 100 mls/hr IV Q1H [facility]; Protocol Stop: 07/02/23 12:59 Last Admin: 07/02/23 11:09 Dose: 100 mls/hr Nicotine (Nicotine 14 Mg Patch) 1 patch TOP DAILY [facility] Last Admin: 07/02/23 08:34 Dose: 1 patch Ondansetron HCl (Ondansetron Odt 4 Mg Tablet) 4 mg TL Q6HR PRN PRN Reason: Nausea / Vomiting Ondansetron HCl (Ondansetron 4 Mg/2 Ml Vial) 4 mg IVP Q6HR PRN PRN Reason: Nausea / Vomiting Pantoprazole Sodium (Pantoprazole 40 Mg Vial) 40 mg IVP QDAC [facility] Last Admin: 07/02/23 06:36 Dose: 40 mg Polyethylene Glycol (Polyethylene Glycol 3350 17 Gm Packet) 17 gm PO DAILY [facility] Multivit/Folic Acid/Iron ( Vitamin Tablet) 1 tab PO DAILYWM [facility] Last Admin: 07/02/23 07:51 Dose: Not Given Sodium Chloride (Sodium Chloride Flush 0.9% 10 Ml Syringe) 10 ml IVP PRN PRN PRN Reason: NEEDED PER PROVIDER ORDERS Last Admin: 07/01/23 19:59 Dose: 10 ml Sodium Chloride (Sodium Chloride Flush 0.9% 10 Ml Syringe) 10 ml IVP 0100,0900,1700 [facility] Last Admin: 07/02/23 08:35 Dose: 10 ml Thiamine HCl (Thiamine 100 Mg Tablet) 100 mg PO DAILY [facility] Last Admin: 07/02/23 08:35 Dose: 100 mg Gabapentin [Neurontin] 300 mg PO TID 06/27/23 LORazepam [Ativan] 1 mg PO UD 06/27/23 Acetaminophen [Tylenol] 1,000 mg PO Q6H PRN 06/28/23 Multivitamin [Theragran] 1 tab PO DAILY 06/28/23 Vitamin B Complex Vit C No.3 [B Complex with Vitamin C] 1 cap PO DAILY 06/28/23 cloNIDine [Catapres] 0.1 mg PO Q4H PRN 06/28/23 hydrOXYzine pamoate [Hydroxyzine Pamoate] 50 mg PO Q6H PRN 06/28/23 methocarbamoL [Methocarbamol] 1,500 mg PO Q6H PRN 06/28/23 Objective - Vital Signs/Intake & Output Reviewed Vital Signs: Yes Vital Signs: Vital Signs Temp Pulse Pulse Resp BP Pulse Ox 07/02/23 11:30 37.1 C 14 98 07/02/23 11:00 37.1 C 66 14 126/91 H 98 07/02/23 10:00 37.1 C 68 14 121/85 H 98 07/02/23 09:39 60 07/02/23 09:00 37.2 C 72 14 118/83 H 96 07/02/23 08:30 37.5 C 14 98 07/02/23 08:00 37.5 C 70 14 114/78 98 Intake & Output: Intake & Output 06/29/23 06/30/23 07/01/23 07/02/23 23:59 23:59 23:59 23:59 Intake Total 7127.120 4093.344 2874.487 3879.908 Output Total 1438 1820 4645 5370 Balance 5689.120 2273.344 -1770.513 -1490.092 - Objective General Appearance: positive: Other (Intubated and sedated patient on ventila tor) Eyes Bilateral: positive: No lid inflammation, Conjunctivae nml, Other (Pupils pinpoint and unreactive to light bilaterally) ENT: positive: Other (OG tube in place) Neck: positive: Nml inspection Respiratory: positive: Chest non-tender, No respiratory distress (On ventilator), Other (Anterior exam only. Decreased breath sounds on Lower L side.) Cardiovascular: positive: Regular rate & rhythm Peripheral Pulses: 2+ Radial (R), 2+ Radial (L) Abdomen: positive: No organomegaly, No distention. negative: Hepatomegaly, S plenomegaly Skin: positive: No rash, Warm, Dry Extremities: positive: No pedal edema, Other (Yellowing of skin on feet and toenails, dirt under toenails bilaterally.) Neurologic/Psychiatric: positive: Other (Sedated) - Lab Results Fish Bones: 07/02/23 09:40 07/02/23 09:40 Other Labs: Lab Results x24hrs 07/02/23 07/02/23 07/02/23 Range/Units 09:40 09:40 05:40 WBC 12.9 H (4.8-10.8) x10^3/uL RBC 3.12 L (4.70-6.10) 10^6/uL Hgb 10.1 L (14.0-18.0) g/dL Hct 29.7 L (42.0-52.0) % MCV 95.2 H (80.0-94.0) fL MCH 32.4 H (27.0-31.0) pg MCHC 34.0 (32.0-36.0) g/dL RDW 12.0 (12.0-15.0) % Plt Count 228 (130-450) 10^3/uL MPV 8.9 (7.4-11.4) fL Neut # (Auto) 9.3 H (1.5-6.6) 10^3/uL Lymph # (Auto) 1.8 (1.5-3.5) 10^3/uL [place] # (Auto) 1.6 H (0.0-1.0) 10^3/uL Eos # (Auto) 0.1 (0.0-0.7) 10^3/uL Baso # (Auto) 0.1 (0.0-0.1) 10^3/uL Absolute Nucleated RBC 0.00 x10^3/uL Nucleated RBC % 0.0 /100WBC Manual Slide Review Indicated Platelet Estimate NORMAL (130-450,000) (NORMAL) Platelet Morphology NORMAL APPEARANCE (NORMAL) RBC Morph Micro Appear NORMAL APPEARANCE (NORMAL) Bld Gas Analysis Time 0545 Sample Site RIGHT RADIAL ABG pH 7.49 H (7.35-7.45) ABG pCO2 39 (34-45) mmHg ABG pO2 201 H* (80-100) mmHg ABG HCO3 28.5 H (22.0-26.0) mmol/L ABG Total CO2 29.7 H (21.0-29.0) MMOL/L ABG O2 Saturation 99 H (94-98) % ABG Base Excess 4.8 H (-2.0-3.0) mmol/L Doroteo Test POSITIVE Respiration Rate 12 b/min O2 Delivery Device VENTILATOR O2 Liters/Min LPM Vent Mode ASSIST/CONTROL FiO2 60.00 Tidal Volume 450 mL Pressure Support Vent 5 cmH2O Sodium 145 (135-145) mmol/L Potassium 2.8 L (3.5-4.5) mmol/L Chloride 109 (101-111) mmol/L Carbon Dioxide 29 (21-32) mmol/L Anion Gap 7.0 (6-13) BUN 3 L (6-20) mg/dL Creatinine 0.5 L (0.6-1.3) mg/dL Estimated GFR (MDRD) 198 (>89) Glucose 75 (74-104) mg/dL Calcium 8.8 (8.5-10.3) mg/dL Phosphorus 1.4 L (2.5-5.0) mg/dL Magnesium 1.7 (1.7-2.3) mg/dL Total Bilirubin 0.5 (0.2-1.0) mg/dL AST 27 (10-42) IU/L ALT 16 (10-60) IU/L Alkaline Phosphatase 50 (42-121) IU/L Total Protein 5.5 L (6.4-8.9) g/dL Albumin 2.9 L (3.2-5.5) g/dL Globulin 2.6 (2.1-4.2) g/dL Albumin/Globulin Ratio 1.1 (1.0-2.2) Prealbumin 15 L (17-34) mg/dL 07/02/23 07/01/23 Range/Units 01:25 11:00 WBC (4.8-10.8) x10^3/uL RBC (4.70-6.10) 10^6/uL Hgb (14.0-18.0) g/dL Hct (42.0-52.0) % MCV (80.0-94.0) fL MCH (27.0-31.0) pg MCHC (32.0-36.0) g/dL RDW (12.0-15.0) % Plt Count (130-450) 10^3/uL MPV (7.4-11.4) fL Neut # (Auto) (1.5-6.6) 10^3/uL Lymph # (Auto) (1.5-3.5) 10^3/uL [place] # (Auto) (0.0-1.0) 10^3/uL Eos # (Auto) (0.0-0.7) 10^3/uL Baso # (Auto) (0.0-0.1) 10^3/uL Absolute Nucleated RBC x10^3/uL Nucleated RBC % /100WBC Manual Slide Review Platelet Estimate (NORMAL) Platelet Morphology (NORMAL) RBC Morph Micro Appear (NORMAL) Bld Gas Analysis Time 0132 Sample Site RIGHT BRACHIAL ABG pH 7.53 H (7.35-7.45) ABG pCO2 32 L (34-45) mmHg ABG pO2 64 L (80-100) mmHg ABG HCO3 25.9 (22.0-26.0) mmol/L ABG Total CO2 26.9 (21.0-29.0) MMOL/L ABG O2 Saturation 94 (94-98) % ABG Base Excess 3.5 H (-2.0-3.0) mmol/L Doroteo Test NOT APPLICABLE Respiration Rate b/min O2 Delivery Device NASAL CANNULA O2 Liters/Min 4.00 LPM Vent Mode FiO2 36.00 Tidal Volume mL Pressure Support Vent cmH2O Sodium (135-145) mmol/L Potassium 3.5 (3.5-4.5) mmol/L Chloride (101-111) mmol/L Carbon Dioxide (21-32) mmol/L Anion Gap (6-13) BUN (6-20) mg/dL Creatinine (0.6-1.3) mg/dL Estimated GFR (MDRD) (>89) Glucose (74-104) mg/dL Calcium (8.5-10.3) mg/dL Phosphorus (2.5-5.0) mg/dL Magnesium (1.7-2.3) mg/dL Total Bilirubin (0.2-1.0) mg/dL AST (10-42) IU/L ALT (10-60) IU/L Alkaline Phosphatase (42-121) IU/L Total Protein (6.4-8.9) g/dL Albumin (3.2-5.5) g/dL Globulin (2.1-4.2) g/dL Albumin/Globulin Ratio (1.0-2.2) Prealbumin (17-34) mg/dL Sepsis Event Note (H) - Evaluation Current Stage of Sepsis: Resolved Possible source of Sepsis: positive: Pulmonary - Sepsis Criteria Sepsis Criteria: WBC count greater than 12,000 or less than 4000 Assessment/Plan - Problem List (1) Delirium tremens Impression: Patient drinks 6-8 beers daily. He was at [facility] and at 72 hours after his last drink, he had visual hallucinations of his mother in the room with him, became increasingly agitated and combative. In the ER, his hallucinations and vitals were refractory to benzodiazepine management and he was intubated for airway management to use higher sedatives. He was on max dose IV Precedex drip and max dose IV Ativan drip and was still able to try to sit up and remove ET tube. His lipase was elevated slightly at 140 likely due to alcohol use. He also has a macrocytic anemia, likely secondary to alcohol use. Even after extubation, he was confused and agitated and scored 13 on his CIWA score. Plan: - continue ICU management, intubation - continue sedation with Versed, diazepam, fentanyl drip, propofol - continue home metoprolol - he has received one banana bag at admission, he may benefit from additional banana bag today (2) On mechanically assisted ventilation Impression: Reintubated last night. Ventilator settings currently O2 delivery of 4 L/min, Fi02 60, tidal volume of 450, RR 12. ABG today revealed alkalosis with pH of 7.49, p02 of 201, HCO3 if 28.5, total O2 of 29.7, he is overventilated. - continue ventilation, decrease tidal volume - repeat ABG - continue sedation - OG tube for nutrition (3) VAP (ventilator-associated pneumonia) Impression: On 06/29 he spiked a fever and was more hypoxic. That day his CXR showed a new RLL pneumonia. L.A. was 2.3 and he was in metabolic acidosis and hypotensive, needing Levophed. His respiratory panel PCR was negative. He was in septic shock, and started on IV steroids. CXR this morning (07/02) still showed bilateral opacities. Today WBC is 12.9, he is afebrile, remains hypertensive. Plan: - Continue IV Zosyn - Continue probiotic - Continue IV steroids (4) Hyponatremia Impression: RESOLVED. Sodium is 145 today. (5) Hypokalemia Impression: Potassium decreased from 3.5 to 2.8 today. Plan: - replete with IV potassium chloride 20 Meq (6) Septic shock Impression: RESOLVED. On 06/29 he became hypotensive w/ BP 80-90 systolic. He got several saline IV boluses, then started Levophed. He was weaned off Levophed 06/30. CXR revealed RLL pneumonia as etiology of sepsis. His WBCs remain elevated, Pending echo today to r/o possible alcoholic cardiomyopathy contributing to hypotension. Plan: - continue antibiotics - continue to trend labs, CBC, vitals - repeat lactate (7) Tobacco use Impression: Patient requested cigarettes after extubation. Plan: - continue daily nicotine patch (8) Constipation Impression: Patient has not had BM since admission Plan: - start bowel regimen - KUB
[2023-07-02] MEDS: fentaNYL 2,500 MCG/250 ML 2,500 MCG/250 ML BAG IV SCH ×2 (14:08→19:57)
--- NOTE | 2023-07-02 14:17 | XRAY Report ---
PROCEDURE: Abdomen 1 V INDICATIONS: no bm TECHNIQUE: One view of the abdomen acquired. COMPARISON: None. FINDINGS: Surgical changes and devices: None. Bowel: Bowel gas pattern is nonobstructive. Mild fecal stasis in the colon is seen. No gross pneumop eritoneum. Soft tissues: No suspicious abdominal calcifications. Visualized solid organ contours appear normal in size. Bones: No suspicious bony lesions. IMPRESSION: Mild constipation. No bowel obstruction or gross free air. Reviewed by: Josh Hargrove MD on 07/02/2023 2:16 PM PST Approved by: Josh Hargrove MD on 07/02/2023 2:16 PM PST Station ID: [id number]
[2023-07-02 14:50] LABS: CALCIUM, IONIZED 1.19 mmol/L (1.15-1.33); VBG PH 7.482 (7.31-7.41)
[2023-07-02 15:44] LABS: MAGNESIUM 1.9 mg/dL (1.7-2.3); POTASSIUM 3.1 mmol/L (3.5-4.5)
[2023-07-02] MEDS ORDERED: CALCIUM CHLORIDE 1,000 MG in SODIUM CHLORIDE 0.9% 50 ML IV ONE (15:45)
[2023-07-02] MEDS ORDERED: VECURONIUM 10 MG VIAL IVP PRN (19:34)
[2023-07-02 20:45] LABS: CALCIUM, IONIZED 1.22 mmol/L (1.15-1.33); VBG PH 7.486 (7.31-7.41)
[2023-07-02 21:04] LABS: MAGNESIUM 1.8 mg/dL (1.7-2.3); PHOSPHORUS 2.4 mg/dL (2.5-5.0); POTASSIUM 3.2 mmol/L (3.5-4.5)
[2023-07-02] MEDS: NEUTRA-PHOS 250 MG TABLET PO SCH (23:11)
[2023-07-03] MEDS: NEUTRA-PHOS 250 MG TABLET PO SCH (01:02)
[2023-07-03] MEDS: fentaNYL 2,500 MCG/250 ML 2,500 MCG/250 ML BAG IV SCH ×4 (01:47→20:29)
[2023-07-03] MEDS: SODIUM CHLORIDE FLUSH 0.9% 10 ML SYRINGE IVP SCH ×3 (01:48→18:25)
[2023-07-03] MEDS: diazePAM INJ 5 MG/ML SYRINGE IVP PRN (02:33)
[2023-07-03] MEDS: PROPOFOL 1000 MG/100 ML 1,000 MG/100 ML BOTTLE IV SCH ×4 (03:51→23:40)
[2023-07-03] MEDS: PIPERACILLIN/TAZOBACTAM 3.375 GM in SODIUM CHLORIDE 0.9% MINIBAG 100 ML IV SCH ×3 (04:50→20:22)
[2023-07-03 05:00] LABS: BASOPHILS # (AUTO) 0.2 10^3/uL (0.0-0.1); BASOPHILS % (AUTO) 2.1 %; EOSINOPHILS # (AUTO) 0.4 10^3/uL (0.0-0.7); EOSINOPHILS % (AUTO) 3.9 %; HGB - HEMOGLOBIN 11.4 g/dL (14.0-18.0); LYMPHOCYTES % (AUTO) 20.8 %; MEAN CORPUSCULAR HEMOGLOBIN 33.1 pg (27.0-31.0); MEAN CORPUSCULAR HGB CONC 33.5 g/dL (32.0-36.0); MEAN CORPUSCULAR VOLUME 98.8 fL (80.0-94.0); MEAN PLATELET VOLUME 9.6 fL (7.4-11.4); MONOCYTES # (AUTO) 1.6 10^3/uL (0.0-1.0); MONOCYTES % (AUTO) 16.3 %; NEUTROPHILS # (AUTO) 5.5 10^3/uL (1.5-6.6); NEUTROPHILS % (AUTO) 56.3 %; PLT - PLATELET COUNT 316 10^3/uL (130-450); RED BLOOD COUNT 3.44 10^6/uL (4.70-6.10); RED CELL DISTRIBUTION WIDTH 12.5 % (12.0-15.0); WHITE BLOOD COUNT 9.7 x10^3/uL (4.8-10.8)
[2023-07-03 05:04] LABS: CALCIUM, IONIZED 1.2 mmol/L (1.15-1.33); VBG PH 7.494 (7.31-7.41)
[2023-07-03] MEDS: chlordiazePOXIDE 25 MG CAPSULE PO SCH ×4 (05:08→23:49)
[2023-07-03 05:19] LABS: ALBUMIN 2.9 g/dL (3.2-5.5); BILIRUBIN,TOTAL 0.3 mg/dL (0.2-1.0); CALCIUM 8.9 mg/dL (8.5-10.3); CREATININE 0.5 mg/dL (0.6-1.3); MAGNESIUM 2.2 mg/dL (1.7-2.3); PHOSPHORUS 2.7 mg/dL (2.5-5.0); POTASSIUM 3.6 mmol/L (3.5-4.5); TOTAL PROTEIN 5.7 g/dL (6.4-8.9)
[2023-07-03 05:39] LABS: ABG HCO3 24.7 mmol/L (22.0-26.0); ABG PCO2 33 mmHg (34-45); ABG PO2 74 mmHg (80-100); ABG TCO2 25.7 MMOL/L (21.0-29.0)
[2023-07-03 05:40] LABS: ABG MODE OF VENTILATION ASSIST/CONTROL; ABG OXYGEN SATURATION 95 % (94-98); ABG RESPIRATORY RATE 14 b/min; ALLEN TEST POSITIVE
[2023-07-03] MEDS ORDERED: POTASSIUM CHLOR 20 MEQ/100 ML 20 MEQ/100 ML BAG IV ONE ×2 (05:50→23:27)
[2023-07-03 06:29] LABS: PLATELET ESTIMATE, MANUAL NORMAL (130-450,000) (NORMAL); RBC MORPHOLOGY (MULTIPLE) NORMAL APPEARANCE (NORMAL)
[2023-07-03] MEDS: PANTOPRAZOLE 40 MG VIAL IVP SCH (06:37)
[2023-07-03] MEDS: MIDAZOLAM DRIP 50 MG/50 ML 50 MG/50 ML BAG IV SCH ×3 (06:38→21:43)
[2023-07-03] MEDS: polyethylene glycoL 3350 17 GM PACKET PO SCH (09:43)
[2023-07-03] MEDS: PRENATAL VITAMIN TABLET PO SCH (09:43)
[2023-07-03] MEDS: THIAMINE 100 MG TABLET PO SCH (09:44)
[2023-07-03] MEDS: FAMOTIDINE 20 MG/2 ML VIAL IVP SCH ×2 (09:44→20:22)
[2023-07-03] MEDS: SODIUM CHLORIDE FLUSH 0.9% 10 ML SYRINGE IVP PRN ×3 (09:44→15:25)
[2023-07-03] MEDS: NICOTINE 14 MG PATCH TOP SCH (09:44)
[2023-07-03] MEDS: CHLORHEXIDINE GLUCONATE 15 ML UDC PO SCH ×2 (09:48→20:21)
[2023-07-03] MEDS: ENOXAPARIN 40 MG/0.4 ML SYRINGE SUBQ SCH (09:49)
[2023-07-03] MEDS: SODIUM CHLORIDE 0.9% 1,000 ML IV SCH (10:32)
[2023-07-03] MEDS ORDERED: POTASSIUM CHLOR 20 MEQ/100 ML 20 MEQ/100 ML BAG IV SCH ×2 (11:00→18:00)
--- NOTE | 2023-07-03 13:14 | PROVIDER PROGRESS NOTE ---
Subjective - Prog Note Date Prog Note Date: 07/03/23 Prog Note Time: 08:35 - Subjective Subjective: Patient intubated and sedated. RN and RT attempted to wean pt off sedation today to see if extubation was possible. Patient followed commands initially, though continuously tried to sit up and tried to pull at his ET tube. Current Medications - Current Medications Current Medications: Active Medications Chlordiazepoxide HCl (Chlordiazepoxide 25 Mg Capsule) 25 mg PO Q6HR [facility] [place] Last Admin: 07/03/23 11:48 Dose: 25 mg Chlorhexidine Gluconate (Chlorhexidine Gluconate 15 Ml Udc) 15 ml PO BID [facility] [place] Last Admin: 07/03/23 09:48 Dose: 15 ml Diazepam (Diazepam 5 Mg Tablet) 5 mg PO Q1H PRN; Protocol PRN Reason: CIWA > 8 Last Admin: 07/01/23 13:48 Dose: 5 mg Diazepam (Diazepam Inj 5 Mg/Ml Syringe) 10 mg IVP Q30M PRN; Protocol PRN Reason: CIWA>8 Last Admin: 07/03/23 02:33 Dose: 10 mg Enoxaparin Sodium (Enoxaparin 40 Mg/0.4 Ml Syringe) 40 mg SUBQ DAILY [facility] [place] Last Admin: 07/03/23 09:49 Dose: 40 mg Famotidine (Famotidine 20 Mg/2 Ml Vial) 20 mg IVP BID [facility] [place] Last Admin: 07/03/23 09:44 Dose: 20 mg Acetaminophen (Acetaminophen) 1,000 mg in 100 mls @ 400 mls/hr IV Q6HR PRN PRN Reason: Moderate Pain (Level 4-6) Last Infusion: 07/02/23 06:38 Dose: Infused Piperacillin Sod/Tazobactam (Sod 3.375 gm/ Sodium Chloride) 100 mls @ 25 mls/hr IV Q8H [facility] [place] Last Infusion: 07/03/23 08:50 Dose: Infused Midazolam HCl (Versed Drip 50 Mg/50 Ml) 50 mg in 50 mls @ 2.324 mls/hr IV .[id number] [facility] [place]; Protocol Last Titration: 07/03/23 08:35 Dose: 0.1 mg/kg/hr, 5.81 mls/hr Propofol (Diprivan) 1,000 mg in 100 mls @ 3.486 mls/hr IV .[id number] [facility] [place]; Pr otocol Stop: 07/04/23 02:59 Last Admin: 07/03/23 10:26 Dose: 40 mcg/kg/min, 13.944 mls/hr Fentanyl (Fentanyl) 2,500 mcg in 250 mls @ 5.85 mls/hr IV .[id number] [facility] [place]; Protocol Last Titration: 07/03/23 08:35 Dose: 7 mcg/kg/hr, 40.95 mls/hr Sodium Chloride (Normal Saline 0.9%) 1,000 mls @ 30 mls/hr IV .[id number] [facility] [place] Last Admin: 07/03/23 10:32 Dose: 30 mls/hr Potassium Chloride (Potassium Chloride) 20 meq in 100 mls @ 100 mls/hr IV ONCE [facility] [place]; Protocol Stop: 07/03/23 16:00 Last Admin: 07/03/23 11:41 Dose: 100 mls/hr Nicotine (Nicotine 14 Mg Patch) 1 patch TOP DAILY [facility] [place] Last Admin: 07/03/23 09:44 Dose: 1 patch Ondansetron HCl (Ondansetron Odt 4 Mg Tablet) 4 mg TL Q6HR PRN PRN Reason: Nausea / Vomiting Ondansetron HCl (Ondansetron 4 Mg/2 Ml Vial) 4 mg IVP Q6HR PRN PRN Reason: Nausea / Vomiting Pantoprazole Sodium (Pantoprazole 40 Mg Vial) 40 mg IVP QDAC [facility] [place] Last Admin: 07/03/23 06:37 Dose: 40 mg Polyethylene Glycol (Polyethylene Glycol 3350 17 Gm Packet) 17 gm PO DAILY [facility] [place] Last Admin: 07/03/23 09:43 Dose: 17 gm Multivit/Folic Acid/Iron ( Vitamin Tablet) 1 tab PO DAILYWM [facility] [place] Last Admin: 07/03/23 09:43 Dose: 1 tab Sodium Chloride (Sodium Chloride Flush 0.9% 10 Ml Syringe) 10 ml IVP PRN PRN PRN Reason: NEEDED PER PROVIDER ORDERS Last Admin: 07/03/23 10:21 Dose: 30 ml Sodium Chloride (Sodium Chloride Flush 0.9% 10 Ml Syringe) 10 ml IVP 0100,0900,1700 [facility] [place] Last Admin: 07/03/23 09:41 Dose: 20 ml Thiamine HCl (Thiamine 100 Mg Tablet) 100 mg PO DAILY [facility] [place] Last Admin: 07/03/23 09:44 Dose: 100 mg Vecuronium [place] (Vecuronium 10 Mg Vial) 5 mg IVP DAILY PRN PRN Reason: Agitation Gabapentin [Neurontin] 300 mg PO TID 06/27/23 LORazepam [Ativan] 1 mg PO UD 06/27/23 Acetaminophen [Tylenol] 1,000 mg PO Q6H PRN 06/28/23 Multivitamin [Theragran] 1 tab PO DAILY 06/28/23 Vitamin B Complex Vit C No.3 [B Complex with Vitamin C] 1 cap PO DAILY 06/28/23 cloNIDine [Catapres] 0.1 mg PO Q4H PRN 06/28/23 hydrOXYzine pamoate [Hydroxyzine Pamoate] 50 mg PO Q6H PRN 06/28/23 methocarbamoL [Methocarbamol] 1,500 mg PO Q6H PRN 06/28/23 Objective - Vital Signs/Intake & Output Reviewed Vital Signs: Yes Vital Signs: Vital Signs Temp Pulse Pulse Resp BP Pulse Ox 07/03/23 13:00 37.5 C 79 14 102/61 95 07/03/23 12:00 37.4 C 76 14 101/63 96 07/03/23 11:00 37.4 C 81 14 98/62 95 07/03/23 10:55 91 07/03/23 10:00 37.7 C 96 14 98/62 95 Intake & Output: Intake & Output 06/30/23 07/01/23 07/02/23 07/03/23 23:59 23:59 23:59 23:59 Intake Total 4093.344 2874.487 6316.375 3153.316 Output Total 1820 4645 7930 2310 Balance 2273.344 -1770.513 -1613.625 843.316 - Objective General Appearance: positive: Other (Intubated and sedated on ventilator.) Eyes Bilateral: positive: No lid inflammation, Conjunctivae nml, Other (Pupils pinpoint and unreactice to light bilaterally) ENT: positive: Dry mucous membranes (OG tube in place), Other Neck: positive: Nml inspection, No JVD Respiratory: positive: No respiratory distress, Breath sounds nml (Anterior exam only) Cardiovascular: positive: Regular rate & rhythm Peripheral Pulses: 2+ Radial (R), 2+ Radial (L) Abdomen: positive: No organomegaly, No distention. negative: Hepatomegaly, Splenomegaly, Mass Skin: positive: No rash, Warm, Dry Extremities: positive: Other (Mild swelling in legs, yellowing of skin on feet and toenails, dirt under toenails bilaterally. Upper extremeties in soft restraints.) Neurologic/Psychiatric: positive: Other (Sedated on ventilator) - Lab Results Fish Bones: 07/03/23 04:24 07/03/23 15:25 Other Labs: Lab Results x24hrs 07/03/23 07/03/23 07/03/23 Range/Units 10:20 05:30 04:24 WBC (4.8-10.8) x10^3/uL RBC (4.70-6.10) 10^6/uL Hgb (14.0-18.0) g/dL Hct (42.0-52.0) % MCV (80.0-94.0) fL MCH (27.0-31.0) pg MCHC (32.0-36.0) g/dL RDW (12.0-15.0) % Plt Count (130-450) 10^3/uL MPV (7.4-11.4) fL Neut # (Auto) (1.5-6.6) 10^3/uL Lymph # (Auto) (1.5-3.5) 10^3/uL [place] # (Auto) (0.0-1.0) 10^3/uL Eos # (Auto) (0.0-0.7) 10^3/uL Baso # (Auto) (0.0-0.1) 10^3/uL Absolute Nucleated RBC x10^3/uL Nucleated RBC % /100WBC Platelet Estimate (NORMAL) RBC Morph Micro Appear (NORMAL) Bld Gas Analysis Time 0537 Sample Site RIGHT RADIAL ABG pH 7.50 H (7.35-7.45) ABG pCO2 33 L (34-45) mmHg ABG pO2 74 L (80-100) mmHg ABG HCO3 24.7 (22.0-26.0) mmol/L ABG Total CO2 25.7 (21.0-29.0) MMOL/L ABG O2 Saturation 95 (94-98) % ABG Base Excess 2.0 (-2.0-3.0) mmol/L [place] Test POSITIVE VBG pH 7.494 H (7.31-7.41) Ionized Calcium 1.20 (1.15-1.33) mmol/L Respiration Rate 14 b/min O2 Delivery Device VENTILATOR Vent Mode ASSIST/CONTROL FiO2 30.00 Tidal Volume 500 mL Sodium (135-145) mmol/L Potassium 3.6 (3.5-4.5) mmol/L Chloride (101-111) mmol/L Carbon Dioxide (21-32) mmol/L Anion Gap (6-13) BUN (6-20) mg/dL Creatinine (0.6-1.3) mg/dL Estimated GFR (MDRD) (>89) Glucose (74-104) mg/dL Calcium (8.5-10.3) mg/dL Phosphorus (2.5-5.0) mg/dL Magnesium (1.7-2.3) mg/dL Total Bilirubin (0.2-1.0) mg/dL AST (10-42) IU/L ALT (10-60) IU/L Alkaline Phosphatase (42-121) IU/L Total Protein (6.4-8.9) g/dL Albumin (3.2-5.5) g/dL Globulin (2.1-4.2) g/dL Albumin/Globulin Ratio (1.0-2.2) Prealbumin (17-34) mg/dL Triglycerides (48-352) mg/dL 07/03/23 07/03/23 07/03/23 Range/Units 04:24 04:24 04:24 WBC 9.7 (4.8-10.8) x10^3/uL RBC 3.44 L (4.70-6.10) 10^6/uL Hgb 11.4 L (14.0-18.0) g/dL Hct 34.0 L (42.0-52.0) % MCV 98.8 H (80.0-94.0) fL MCH 33.1 H (27.0-31.0) pg MCHC 33.5 (32.0-36.0) g/dL RDW 12.5 (12.0-15.0) % Plt Count 316 (130-450) 10^3/uL MPV 9.6 (7.4-11.4) fL Neut # (Auto) 5.5 (1.5-6.6) 10^3/uL Lymph # (Auto) 2.0 (1.5-3.5) 10^3/uL [place] # (Auto) 1.6 H (0.0-1.0) 10^3/uL Eos # (Auto) 0.4 (0.0-0.7) 10^3/uL Baso # (Auto) 0.2 H (0.0-0.1) 10^3/uL Absolute Nucleated RBC 0.00 x10^3/uL Nucleated RBC % 0.0 /100WBC Platelet Estimate NORMAL (130-450,000) (NORMAL) RBC Morph Micro Appear NORMAL APPEARANCE (NORMAL) Bld Gas Analysis Time Sample Site ABG pH (7.35-7.45) ABG pCO2 (34-45) mmHg ABG pO2 (80-100) mmHg ABG HCO3 (22.0-26.0) mmol/L ABG Total CO2 (21.0-29.0) MMOL/L ABG O2 Saturation (94-98) % ABG Base Excess (-2.0-3.0) mmol/L [place] Test VBG pH (7.31-7.41) Ionized Calcium (1.15-1.33) mmol/L Respiration Rate b/min O2 Delivery Device Vent Mode FiO2 Tidal Volume mL Sodium 143 (135-145) mmol/L Potassium 3.6 (3.5-4.5) mmol/L Chloride 110 (101-111) mmol/L Carbon Dioxide 27 (21-32) mmol/L Anion Gap 6.0 (6-13) BUN 5 L (6-20) mg/dL Creatinine 0.5 L (0.6-1.3) mg/dL Estimated GFR (MDRD) 198 (>89) Glucose 81 (74-104) mg/dL Calcium 8.9 (8.5-10.3) mg/dL Phosphorus 2.7 (2.5-5.0) mg/dL Magnesium 2.2 (1.7-2.3) mg/dL Total Bilirubin 0.3 (0.2-1.0) mg/dL AST 17 (10-42) IU/L ALT 12 (10-60) IU/L Alkaline Phosphatase 54 (42-121) IU/L Total Protein 5.7 L (6.4-8.9) g/dL Albumin 2.9 L (3.2-5.5) g/dL Globulin 2.8 (2.1-4.2) g/dL Albumin/Globulin Ratio 1.0 (1.0-2.2) Prealbumin 13 L (17-34) mg/dL Triglycerides 191 (48-352) mg/dL 07/02/23 07/02/23 07/02/23 Range/Units 20:30 20:30 16:20 WBC (4.8-10.8) x10^3/uL RBC (4.70-6.10) 10^6/uL Hgb (14.0-18.0) g/dL Hct (42.0-52.0) % MCV (80.0-94.0) fL MCH (27.0-31.0) pg MCHC (32.0-36.0) g/dL RDW (12.0-15.0) % Plt Count (130-450) 10^3/uL MPV (7.4-11.4) fL Neut # (Auto) (1.5-6.6) 10^3/uL Lymph # (Auto) (1.5-3.5) 10^3/uL [place] # (Auto) (0.0-1.0) 10^3/uL Eos # (Auto) (0.0-0.7) 10^3/uL Baso # (Auto) (0.0-0.1) 10^3/uL Absolute Nucleated RBC x10^3/uL Nucleated RBC % /100WBC Platelet Estimate (NORMAL) RBC Morph Micro Appear (NORMAL) Bld Gas Analysis Time Sample Site ABG pH (7.35-7.45) ABG pCO2 (34-45) mmHg ABG pO2 (80-100) mmHg ABG HCO3 (22.0-26.0) mmol/L ABG Total CO2 (21.0-29.0) MMOL/L ABG O2 Saturation (94-98) % ABG Base Excess (-2.0-3.0) mmol/L [place] Test VBG pH 7.486 H (7.31-7.41) Ionized Calcium 1.22 (1.15-1.33) mmol/L Respiration Rate b/min O2 Delivery Device Vent Mode FiO2 Tidal Volume mL Sodium (135-145) mmol/L Potassium 3.2 L (3.5-4.5) mmol/L Chloride (101-111) mmol/L Carbon Dioxide (21-32) mmol/L Anion Gap (6-13) BUN (6-20) mg/dL Creatinine (0.6-1.3) mg/dL Estimated GFR (MDRD) (>89) Glucose (74-104) mg/dL Calcium (8.5-10.3) mg/dL Phosphorus 2.4 L 2.9 (2.5-5.0) mg/dL Magnesium 1.8 (1.7-2.3) mg/dL Total Bilirubin (0.2-1.0) mg/dL AST (10-42) IU/L ALT (10-60) IU/L Alkaline Phosphatase (42-121) IU/L Total Protein (6.4-8.9) g/dL Albumin (3.2-5.5) g/dL Globulin (2.1-4.2) g/dL Albumin/Globulin Ratio (1.0-2.2) Prealbumin (17-34) mg/dL Triglycerides (48-352) mg/dL 07/02/23 07/02/23 Range/Units 14:30 14:30 WBC (4.8-10.8) x10^3/uL RBC (4.70-6.10) 10^6/uL Hgb (14.0-18.0) g/dL Hct (42.0-52.0) % MCV (80.0-94.0) fL MCH (27.0-31.0) pg MCHC (32.0-36.0) g/dL RDW (12.0-15.0) % Plt Count (130-450) 10^3/uL MPV (7.4-11.4) fL Neut # (Auto) (1.5-6.6) 10^3/uL Lymph # (Auto) (1.5-3.5) 10^3/uL [place] # (Auto) (0.0-1.0) 10^3/uL Eos # (Auto) (0.0-0.7) 10^3/uL Baso # (Auto) (0.0-0.1) 10^3/uL Absolute Nucleated RBC x10^3/uL Nucleated RBC % /100WBC Platelet Estimate (NORMAL) RBC Morph Micro Appear (NORMAL) Bld Gas Analysis Time Sample Site ABG pH (7.35-7.45) ABG pCO2 (34-45) mmHg ABG pO2 (80-100) mmHg ABG HCO3 (22.0-26.0) mmol/L ABG Total CO2 (21.0-29.0) MMOL/L ABG O2 Saturation (94-98) % ABG Base Excess (-2.0-3.0) mmol/L [place] Test VBG pH 7.482 H (7.31-7.41) Ionized Calcium 1.19 (1.15-1.33) mmol/L Respiration Rate b/min O2 Delivery Device Vent Mode FiO2 Tidal Volume mL Sodium (135-145) mmol/L Potassium 3.1 L (3.5-4.5) mmol/L Chloride (101-111) mmol/L Carbon Dioxide (21-32) mmol/L Anion Gap (6-13) BUN (6-20) mg/dL Creatinine (0.6-1.3) mg/dL Estimated GFR (MDRD) (>89) Glucose (74-104) mg/dL Calcium (8.5-10.3) mg/dL Phosphorus (2.5-5.0) mg/dL Magnesium 1.9 (1.7-2.3) mg/dL Total Bilirubin (0.2-1.0) mg/dL AST (10-42) IU/L ALT (10-60) IU/L Alkaline Phosphatase (42-121) IU/L Total Protein (6.4-8.9) g/dL Albumin (3.2-5.5) g/dL Globulin (2.1-4.2) g/dL Albumin/Globulin Ratio (1.0-2.2) Prealbumin (17-34) mg/dL Triglycerides (48-352) mg/dL Sepsis Event Note (H) - Evaluation Current Stage of Sepsis: Resolved Possible source of Sepsis: positive: Pulmonary - Sepsis Criteria Sepsis Criteria: WBC count greater than 12,000 or less than 4000 Assessment/Plan - Problem List (1) Delirium tremens Impression: Patient drinks 6-8 beers daily. He was at [facility] and at 72 hours after his last drink, he had visual hallucinations of his mother in the room with him, became increasingly agitated and combative. In the ER, his hallucinations and vitals were refractory to benzodiazepine management and he was intubated for airway management to use higher sedatives. He was on max dose IV Precedex drip and max dose IV Ativan drip and was still able to try to sit up and remove ET tube. He has received one banana bag at admission. His lipase was elevated slightly at 140 likely due to alcohol use. He also has a macrocytic anemia, likely secondary to alcohol use. Even after extubation, he was confused and agitated and scored 13 on his CIWA score. He was then reintubated 07/02. Today we attempted to wean him off sedation to extubate him, however he was unable to safely follow commands to be extub ated. Plan: - continue ICU management, intubation - continue sedation with Versed, diazepam, fentanyl drip, propofol, prn vecuronium - continue home metoprolol (2) On mechanically assisted ventilation Impression: Reintubated 07/02. Ventilator settings currently O2 delivery of 4 L/min, Fi02 60, tidal volume of 450, RR 14. ABG today reveals he is still alkalotic with pH of 7.5, p02 of 74, HCO3 if 24.7, total O2 of 74, he is overventilated. - continue ventilation, decrease RR or tidal volume - repeat ABG - continue sedation - OG tube w/ Promote for nutritional needs (3) VAP (ventilator-associated pneumonia) Impression: On 06/29 he spiked a fever and was more hypoxic. That day his CXR showed a new RLL pneumonia. L.A. was 2.3 and he was in metabolic acidosis and hypotensive, needing Levophed. Levophed was discontinued 06/30. His respiratory panel PCR was negative. He was in septic shock, and started on IV steroids. CXR (07/02) still showed bilateral opacities. Today WBC is 9.7, he is afebrile, BP WNL. He is on day 5 of antibiotic therapy, to continue til end of day Saturday. Plan: - Continue IV Zosyn til end of day 07/05 - Continue probiotic (4) Hyponatremia Impression: RESOLVED. Sodium is 143 today. (5) Hypokalemia Impression: Resolved. Potassium was 3.6 today. (6) Septic shock Impression: RESOLVED. On 06/29 he became hypotensive w/ BP 80-90 systolic. He got several saline IV boluses, then started Levophed. He was weaned off Levophed 06/30. CXR revealed RLL pneumonia as etiology of sepsis. His WBCs remain elevated, Pending echo today to r/o possible alcoholic cardiomyopathy contributing to hypotension. Plan: - continue antibiotics - continue to trend labs, CBC, vitals (7) Tobacco use Impression: Patient requested cigarettes after extubation. Plan: - continue daily nicotine patch (8) Constipation Impression: Patient has not had BM since admission, KUB 07/01 revealed nonobstructive bowel gas pattern, mild fecal stasis. He is on Promote to address any nutritional needs. Will escalate bowel regimen today as he still has not had BM. Plan: - to escalate bowel regimen
[2023-07-04] MEDS: SODIUM CHLORIDE FLUSH 0.9% 10 ML SYRINGE IVP SCH ×3 (01:57→17:37)
[2023-07-04] MEDS: fentaNYL 2,500 MCG/250 ML 2,500 MCG/250 ML BAG IV SCH (02:47)
[2023-07-04] MEDS: DOCUSATE SODIUM 250 MG CAPSULE PO SCH (04:29)
[2023-07-04] MEDS: SENNA 8.6 MG TABLET PO SCH ×4 (04:30→22:02)
[2023-07-04 04:36] LABS: CALCIUM, IONIZED 1.23 mmol/L (1.15-1.33); VBG PH 7.44 (7.31-7.41)
[2023-07-04] MEDS: PIPERACILLIN/TAZOBACTAM 3.375 GM in SODIUM CHLORIDE 0.9% MINIBAG 100 ML IV SCH (04:40)
[2023-07-04 05:01] LABS: MAGNESIUM 1.7 mg/dL (1.7-2.3); PHOSPHORUS 4.1 mg/dL (2.5-5.0); POTASSIUM 3.6 mmol/L (3.5-4.5)
[2023-07-04] MEDS ORDERED: MAGNESIUM SULFATE 2 GRAM 2 GM/50 ML BAG IV ONE (05:18)
[2023-07-04] MEDS ORDERED: POTASSIUM CHLOR 20 MEQ/100 ML 20 MEQ/100 ML BAG IV ONE ×3 (05:18→14:32)
[2023-07-04] MEDS: chlordiazePOXIDE 25 MG CAPSULE PO SCH ×3 (05:37→17:36)
[2023-07-04] MEDS: PANTOPRAZOLE 40 MG VIAL IVP SCH (06:03)
[2023-07-04] MEDS: MIDAZOLAM DRIP 50 MG/50 ML 50 MG/50 ML BAG IV SCH (06:32)
[2023-07-04] MEDS: PROPOFOL 1000 MG/100 ML 1,000 MG/100 ML BOTTLE IV SCH (06:57)
--- NOTE | 2023-07-04 08:00 | PROVIDER PROGRESS NOTE ---
Subjective - Prog Note Date Prog Note Date: 07/04/23 Prog Note Time: 07:56 - Subjective Subjective: Patient was able to be cooperative and calm, follow directions, was extubated successfully this morning. During extubation, balloon was deflated by RT and then he was suctioned, patient vomited with tube still in place. Current Medications - Current Medications Current Medications: Active Medications Chlordiazepoxide HCl (Chlordiazepoxide 25 Mg Capsule) 25 mg PO Q6HR [facility] Last Admin: 07/04/23 05:37 Dose: 25 mg Chlorhexidine Gluconate (Chlorhexidine Gluconate 15 Ml Udc) 15 ml PO BID [facility] Last Admin: 07/03/23 20:21 Dose: 15 ml Diazepam (Diazepam 5 Mg Tablet) 5 mg PO Q1H PRN; Protocol PRN Reason: CIWA > 8 Last Admin: 07/01/23 13:48 Dose: 5 mg Diazepam (Diazepam Inj 5 Mg/Ml Syringe) 10 mg IVP Q30M PRN; Protocol PRN Reason: CIWA>8 Last Admin: 07/03/23 02:33 Dose: 10 mg Docusate Sodium (Docusate Sodium 250 Mg Capsule) 250 - 500 mg PO DAILY [facility] Last Admin: 07/04/23 04:29 Dose: 250 mg Enoxaparin Sodium (Enoxaparin 40 Mg/0.4 Ml Syringe) 40 mg SUBQ DAILY [facility] Last Admin: 07/03/23 09:49 Dose: 40 mg Famotidine (Famotidine 20 Mg/2 Ml Vial) 20 mg IVP BID [facility] Last Admin: 07/03/23 20:22 Dose: 20 mg Acetaminophen (Acetaminophen) 1,000 mg in 100 mls @ 400 mls/hr IV Q6HR PRN PRN Reason: Moderate Pain (Level 4-6) Last Infusion: 07/02/23 06:38 Dose: Infused Piperacillin Sod/Tazobactam (Sod 3.375 gm/ Sodium Chloride) 100 mls @ 25 mls/hr IV Q8H [facility] Last Admin: 07/04/23 04:40 Dose: 25 mls/hr Midazolam HCl (Versed Drip 50 Mg/50 Ml) 50 mg in 50 mls @ 2.324 mls/hr IV .[id number] [facility]; Protocol Last Admin: 07/04/23 06:32 Dose: 0.1 mg/kg/hr, 5.81 mls/hr Fentanyl (Fentanyl) 2,500 mcg in 250 mls @ 5.85 mls/hr IV .[id number] [facility]; Protocol Last Admin: 07/04/23 02:47 Dose: 7 mcg/kg/hr, 40.95 mls/hr Sodium Chloride (Normal Saline 0.9%) 1,000 mls @ 30 mls/hr IV .[id number] [facility] Last Admin: 07/03/23 10:32 Dose: 30 mls/hr Nicotine (Nicotine 14 Mg Patch) 1 patch TOP DAILY [facility] Last Admin: 07/03/23 09:44 Dose: 1 patch Ondansetron HCl (Ondansetron Odt 4 Mg Tablet) 4 mg TL Q6HR PRN PRN Reason: Nausea / Vomiting Ondansetron HCl (Ondansetron 4 Mg/2 Ml Vial) 4 mg IVP Q6HR PRN PRN Reason: Nausea / Vomiting Pantoprazole Sodium (Pantoprazole 40 Mg Vial) 40 mg IVP QDAC [facility] Last Admin: 07/04/23 06:03 Dose: 40 mg Polyethylene Glycol (Polyethylene Glycol 3350 17 Gm Packet) 17 gm PO DAILY [facility] Last Admin: 07/03/23 09:43 Dose: 17 gm Multivit/Folic Acid/Iron ( Vitamin Tablet) 1 tab PO DAILYWM [facility] Last Admin: 07/03/23 09:43 Dose: 1 tab Senna (Senna 8.6 Mg Tablet) 17.2 - 25.8 mg PO Q6H [facility] Stop: 07/04/23 23:01 Last Admin: 07/04/23 04:30 Dose: 17.2 mg Sodium Chloride (Sodium Chloride Flush 0.9% 10 Ml Syringe) 10 ml IVP PRN PRN PRN Reason: NEEDED PER PROVIDER ORDERS Last Admin: 07/03/23 15:25 Dose: 30 ml Sodium Chloride (Sodium Chloride Flush 0.9% 10 Ml Syringe) 10 ml IVP 0100,0900,1700 [facility] Last Admin: 07/04/23 01:57 Dose: 10 ml Thiamine HCl (Thiamine 100 Mg Tablet) 100 mg PO DAILY [facility] Last Admin: 07/03/23 09:44 Dose: 100 mg Vecuronium [place] (Vecuronium 10 Mg Vial) 5 mg IVP DAILY PRN PRN Reason: Agitation Gabapentin [Neurontin] 300 mg PO TID 06/27/23 LORazepam [Ativan] 1 mg PO UD 06/27/23 Acetaminophen [Tylenol] 1,000 mg PO Q6H PRN 06/28/23 Multivitamin [Theragran] 1 tab PO DAILY 06/28/23 Vitamin B Complex Vit C No.3 [B Complex with Vitamin C] 1 cap PO DAILY 06/28/23 cloNIDine [Catapres] 0.1 mg PO Q4H PRN 06/28/23 hydrOXYzine pamoate [Hydroxyzine Pamoate] 50 mg PO Q6H PRN 06/28/23 methocarbamoL [Methocarbamol] 1,500 mg PO Q6H PRN 06/28/23 Objective - Vital Signs/Intake & Output Reviewed Vital Signs: Yes Vital Signs: Vital Signs Temp Pulse Pulse Resp BP Pulse Ox 07/04/23 07:17 75 07/04/23 07:00 37.3 C 74 14 113/75 95 07/04/23 06:25 72 07/04/23 06:00 75 14 113/71 96 07/04/23 05:00 37 C 67 14 125/83 H 96 07/04/23 04:00 37.0 C 68 14 115/74 98 Intake & Output: Intake & Output 07/01/23 07/02/23 07/03/23 07/04/23 23:59 23:59 23:59 23:59 Intake Total 2874.487 6316.375 4813.633 1504.059 Output Total 4645 7930 4120 1845 Balance -1770.513 -1613.625 693.633 -340.941 - Objective General Appearance: positive: Other (Patient intubated on ventilator) Eyes Bilateral: positive: Normal inspection, No lid inflammation, Conjunctivae nml ENT: positive: ENT inspection nml, Other (ET/OG tubes in place, intubated) Neck: positive: Nml inspection Respiratory: positive: Rales, Rhonchi, Other (Adventitious lung sounds heard bilaterally) Cardiovascular: positive: Regular rate & rhythm Abdomen: positive: Other (diffusely firm abdomen). negative: No distention, Hepatomegaly, Splenomegaly, Mass Skin: positive: Warm, Dry Extremities: positive: Other (mild swelling of LE bilaterally, UE in soft restraints) Neurologic/Psychiatric: positive: Other (Unable to assess, pt is intubated and sedated) - Lab Results Fish Bones: 07/03/23 04:24 07/04/23 17:30 Other Labs: Lab Results x24hrs 07/04/23 07/04/23 07/04/23 Range/Units 05:57 04:10 04:10 VBG pH 7.440 H (7.31-7.41) Ionized Calcium 1.23 (1.15-1.33) mmol/L Potassium 3.6 (3.5-4.5) mmol/L POC Whole Bld Glucose 95 (70 - 100) mg/dL Phosphorus 4.1 (2.5-5.0) mg/dL Magnesium 1.7 (1.7-2.3) mg/dL 07/04/23 07/04/23 07/03/23 Range/Units 00:15 00:13 22:42 VBG pH (7.31-7.41) Ionized Calcium (1.15-1.33) mmol/L Potassium 3.7 (3.5-4.5) mmol/L POC Whole Bld Glucose 100 52 L* (70 - 100) mg/dL Phosphorus (2.5-5.0) mg/dL Magnesium (1.7-2.3) mg/dL 07/03/23 07/03/23 07/03/23 Range/Units 18:26 15:25 12:09 VBG pH (7.31-7.41) Ionized Calcium (1.15-1.33) mmol/L Potassium 3.7 (3.5-4.5) mmol/L POC Whole Bld Glucose 104 H 87 (70 - 100) mg/dL Phosphorus (2.5-5.0) mg/dL Magnesium (1.7-2.3) mg/dL 07/03/23 07/03/23 07/02/23 Range/Units 10:20 06:05 23:47 VBG pH (7.31-7.41) Ionized Calcium (1.15-1.33) mmol/L Potassium 3.6 (3.5-4.5) mmol/L POC Whole Bld Glucose 87 95 (70 - 100) mg/dL Phosphorus (2.5-5.0) mg/dL Magnesium (1.7-2.3) mg/dL 07/02/23 07/02/23 07/02/23 Range/Units 17:55 11:42 06:03 VBG pH (7.31-7.41) Ionized Calcium (1.15-1.33) mmol/L Potassium (3.5-4.5) mmol/L POC Whole Bld Glucose 77 77 95 (70 - 100) mg/dL Phosphorus (2.5-5.0) mg/dL Magnesium (1.7-2.3) mg/dL 07/01/23 07/01/23 07/01/23 Range/Units 18:10 12:01 06:00 VBG pH (7.31-7.41) Ionized Calcium (1.15-1.33) mmol/L Potassium (3.5-4.5) mmol/L POC Whole Bld Glucose 149 H 121 H 93 (70 - 100) mg/dL Phosphorus (2.5-5.0) mg/dL Magnesium (1.7-2.3) mg/dL 07/01/23 06/30/23 06/30/23 Range/Units 00:01 18:12 12:00 VBG pH (7.31-7.41) Ionized Calcium (1.15-1.33) mmol/L Potassium (3.5-4.5) mmol/L POC Whole Bld Glucose 139 H 135 H 140 H (70 - 100) mg/dL Phosphorus (2.5-5.0) mg/dL Magnesium (1.7-2.3) mg/dL 06/30/23 06/29/23 06/29/23 Range/Units 05:55 23:59 18:08 VBG pH (7.31-7.41) Ionized Calcium (1.15-1.33) mmol/L Potassium (3.5-4.5) mmol/L POC Whole Bld Glucose 139 H 157 H 110 H (70 - 100) mg/dL Phosphorus (2.5-5.0) mg/dL Magnesium (1.7-2.3) mg/dL 06/29/23 06/29/23 06/29/23 Range/Units 12:24 06:09 00:20 VBG pH (7.31-7.41) Ionized Calcium (1.15-1.33) mmol/L Potassium (3.5-4.5) mmol/L POC Whole Bld Glucose 113 H 95 108 H (70 - 100) mg/dL Phosphorus (2.5-5.0) mg/dL Magnesium (1.7-2.3) mg/dL 06/28/23 06/28/23 06/28/23 Range/Units 18:30 12:04 06:32 VBG pH (7.31-7.41) Ionized Calcium (1.15-1.33) mmol/L Potassium (3.5-4.5) mmol/L POC Whole Bld Glucose 127 H 132 H 144 H (70 - 100) mg/dL Phosphorus (2.5-5.0) mg/dL Magnesium (1.7-2.3) mg/dL 06/28/23 06/27/23 Range/Units 00:27 18:12 VBG pH (7.31-7.41) Ionized Calcium (1.15-1.33) mmol/L Potassium (3.5-4.5) mmol/L POC Whole Bld Glucose 116 H 133 H (70 - 100) mg/dL Phosphorus (2.5-5.0) mg/dL Magnesium (1.7-2.3) mg/dL Sepsis Event Note (H) - Evaluation Current Stage of Sepsis: Resolved Possible source of Sepsis: positive: Pulmonary - Sepsis Criteria Sepsis Criteria: WBC count greater than 12,000 or less than 4000 Assessment/Plan - Problem List (1) Delirium tremens Impression: Impression: Patient drinks 6-8 beers daily. He was at [facility] and at 72 hours after his last drink, he had visual hallucinations of his mother in the room with him, became increasingly agitated and combative. In the ER, his hallucinations and vitals were refractory to benzodiazepine management and he was intubated for airway management to use higher sedatives. He was on max dose IV Precedex drip and max dose IV Ativan drip and was still able to try to sit up and remove ET tube. He has received one banana bag at admission. His lipase was elevated slightly at 140 likely due to alcohol use. He also has a macrocytic anemia, likely secondary to alcohol use. Even after first extubation 07/01, he was confused and agitated and scored 13 on his CIWA score. He was then reintubated 07/02. On 07/03 we attempted to wean him off sedation to extubate him, however he was unable to safely follow commands to be extubated. Today he was able to be safely extubated again. His CIWA was 11. He appears to be oriented and cooperative at this time, will continue to monitor and treat sx of alcohol withdrawal. Plan: - continue ICU management - continue sedation with librium and diazepam - continue home metoprolol (2) On mechanically assisted ventilation Impression: Reintubated 07/02. Extubated today. On extubation, balloon was deflated, patient vomited while suctioning. Concern for aspiration on top of pneumonia. Pending daily ABG. - post intubation CXR - start regular diet - discontinue OG tube w/ Promote for nutritional needs - discontinue soft restraints (3) VAP (ventilator-associated pneumonia) Impression: On 06/29 he spiked a fever and was more hypoxic. That day his CXR showed a new RLL pneumonia. L.A. was 2.3 and he was in metabolic acidosis and hypotensive, needing Levophed. Levophed was discontinued 06/30. He was in septic shock, and started on IV steroids. CXR (07/02) still showed bilateral opacities. His respiratory panel PCR was negative. Today after extubation he is febrile, tachypnic, hypertensive, tachycardic. O2 saturation 95% on RA. Due to possible aspiration on top of pneumonia as noted above, patient will start on vancomycin, switch to cefepime. Will obtain sputum cultures. Plan: - repeat lactic acid today - Start IV cefepime - Continue probiotic (4) Hyponatremia Impression: RESOLVED. Last sodium was 143 today. (5) Hypokalemia Impression: Resolved. Potassium was 3.7 today. (6) Septic shock Impression: RESOLVED. On 06/29 he became hypotensive w/ BP 80-90 systolic. He got several saline IV boluses, then started Levophed. He was weaned off Levophed 06/30. CXR revealed RLL pneumonia as etiology of sepsis. Echo done 07/02 to r/o possible alcoholic cardiomyopathy contributing to hypotension, revealed normal LV and RV size and function, no valvular disease. His blood cultures came back negative. Plan: - continue antibiotics - continue to trend labs, CBC, vitals (7) Tobacco use Impression: Patient requested cigarettes after initial extubation 07/01. Plan: - continue daily nicotine patch (8) Constipation Impression: Patient has not had BM since admission, KUB 07/01 revealed nonobstructive bowel gas pattern, mild fecal stasis. He is on Promote to address any nutritional needs. His abdomen was firm on exam today, likely due to large stool burden. He was given enema yesterday 07/03. Still no BM today. May need additional enema or suppository. Plan: - continue bowel regimen, continue senna, docusate
[2023-07-04] MEDS: THIAMINE 100 MG TABLET PO SCH (08:43)
[2023-07-04] MEDS: ENOXAPARIN 40 MG/0.4 ML SYRINGE SUBQ SCH (08:55)
[2023-07-04] MEDS: CHLORHEXIDINE GLUCONATE 15 ML UDC PO SCH ×2 (08:55→21:57)
[2023-07-04] MEDS: NICOTINE 14 MG PATCH TOP SCH (08:55)
[2023-07-04] MEDS: PRENATAL VITAMIN TABLET PO SCH (08:55)
[2023-07-04] MEDS: polyethylene glycoL 3350 17 GM PACKET PO SCH (09:00)
[2023-07-04] MEDS ORDERED: DOCUSATE SODIUM 250 MG CAPSULE PO SCH (09:00)
[2023-07-04] MEDS: FAMOTIDINE 20 MG/2 ML VIAL IVP SCH (10:29)
[2023-07-04] MEDS: diazePAM INJ 5 MG/ML SYRINGE IVP PRN (10:30)
[2023-07-04] MEDS: ACETAMINOPHEN 1,000 MG/100 ML 1,000 MG/100 ML BAG IV PRN (11:07)
[2023-07-04] MEDS: CEFEPIME 2 GM in SODIUM CHLORIDE 0.9% MINIBAG 100 ML IV SCH ×2 (12:06→22:09)
--- NOTE | 2023-07-04 12:14 | XRAY Report ---
PROCEDURE: Chest 1V INDICATIONS: s/p extub, aspiration, fever, tachy TECHNIQUE: One view of the chest was acquired. COMPARISON: Chest x-ray 07/02/2023 FINDINGS: Surgical changes and devices: Right-sided catheter is present overlying the mid SVC. Endotracheal tu be and nasogastric tubes have been removed. Lungs and pleura: Mild appearance of increased interstitial opacities particularly within the bases. Overall appearance is improved. Mediastinum: Mediastinal contours appear normal. Heart size is normal. Bones and chest wall: No suspicious bony lesions. Overlying soft tissues appear unremarkable. IMPRESSION: Persistent although improved appearance of interstitial opacities. Reviewed by: Karen Fischer MD on 07/04/2023 12:13 PM PST Approved by: Karen Fischer MD on 07/04/2023 12:13 PM PST Station ID: [id number]
[2023-07-04 12:31] LABS: BILIRUBIN,URINE NEGATIVE (NEGATIVE); GLUCOSE, URINE (UA) NEGATIVE (NEGATIVE); KETONES,URINE (UA) NEGATIVE (NEGATIVE); LEUKOCYTE ESTERASE, URINE NEGATIVE (NEGATIVE); NITRITE,URINE NEGATIVE (NEGATIVE); OCCULT BLOOD,URINE TRACE-LYSE (NEGATIVE); PROTEIN,URINE NEGATIVE (NEGATIVE); UROBILINOGEN,URINE 1 (NORMAL) E.U./dL (NORMAL)
[2023-07-04 12:49] LABS: BACTERIA,URINE Rare /HPF (None Seen); CLARITY,URINE CLEAR (CLEAR); SQUAMOUS EPITHELIAL CELL,UR NONE SEEN (<= Few); WBC,URINE 0-3 /HPF (0-3)
[2023-07-04] MEDS ORDERED: VANCOMYCIN INJ 1 GM, VANCOMYCIN INJ 500 MG in SODIUM CHLORIDE 0.9% 500 ML IV ONE (13:00)
[2023-07-04] MEDS: SODIUM CHLORIDE FLUSH 0.9% 10 ML SYRINGE IVP PRN (14:56)
[2023-07-04] MEDS: ACETAMINOPHEN 325 MG TABLET PO PRN ×2 (17:36→21:58)
[2023-07-04] MEDS: POTASSIUM CHLORIDE 20 MEQ TABLET PO SCH ×2 (20:25→20:26)
[2023-07-04] MEDS: SODIUM CHLORIDE 0.9% 1,000 ML IV SCH (21:28)
[2023-07-04] MEDS ORDERED: VANCOMYCIN 1 GM VIAL ONE (21:48)
[2023-07-04] MEDS: diazePAM 5 MG TABLET PO PRN (21:55)
[2023-07-04] MEDS: FAMOTIDINE 20 MG TABLET PO SCH (22:00)
[2023-07-04] MEDS: VANCOMYCIN INJ 1 GM, VANCOMYCIN INJ 250 MG in SODIUM CHLORIDE 0.9% 250 ML IV SCH (22:03)
[2023-07-05] MEDS: chlordiazePOXIDE 25 MG CAPSULE PO SCH ×5 (00:16→23:26)
[2023-07-05] MEDS: SODIUM CHLORIDE FLUSH 0.9% 10 ML SYRINGE IVP SCH ×3 (02:43→18:32)
[2023-07-05] MEDS ORDERED: VANCOMYCIN 1 GM VIAL ONE (04:09)
[2023-07-05 04:45] LABS: CALCIUM, IONIZED 1.2 mmol/L (1.15-1.33); VBG PH 7.452 (7.31-7.41)
[2023-07-05] MEDS: VANCOMYCIN INJ 1 GM, VANCOMYCIN INJ 250 MG in SODIUM CHLORIDE 0.9% 250 ML IV SCH ×3 (04:45→20:44)
[2023-07-05] MEDS: diazePAM 5 MG TABLET PO PRN (04:45)
[2023-07-05 05:15] LABS: MAGNESIUM 1.6 mg/dL (1.7-2.3); PHOSPHORUS 3.9 mg/dL (2.5-5.0); POTASSIUM 3.2 mmol/L (3.5-4.5)
[2023-07-05] MEDS ORDERED: MAGNESIUM OXIDE 400 MG TABLET PO ONE ×2 (05:36→09:54)
[2023-07-05] MEDS: PANTOPRAZOLE 40 MG VIAL IVP SCH (06:22)
[2023-07-05] MEDS: POTASSIUM CHLOR 20 MEQ/100 ML 20 MEQ/100 ML BAG IV SCH ×2 (06:23→08:15)
--- NOTE | 2023-07-05 08:02 | PROVIDER PROGRESS NOTE ---
Subjective - Prog Note Date Prog Note Date: 07/05/23 Prog Note Time: 07:54 - Subjective Pt reports feeling: Improved Subjective: Patient resting supine in hospital bed. Admits 7/10 crampy leg pain, feels like he is "getting hit repeatedly in the legs with a hammer". He reports his urine has been brown, stating "it looks like poop". He was able to ambulate to the bedside commode with assistance yesterday, states that he felt weak and shaky. Denies dizziness, lightheadedness, chest pain, shortness of breath. He had a BM today. He is excited to go home and see his family. He is looking forward to hanging out with them and watching movies together. Spending time with them is his favorite thing to do in his free time. He states that his mother threw away all of his alcohol, and he is planning on spending a week at home with family before going to an inpatient treatment facility. He expresses gratitude that he made it out of this withdrawal alive. He works for a [employer] and eventually plans to return to working there when he gets out of rehab. Current Medications - Current Medications Current Medications: Active Medications Acetaminophen (Acetaminophen 325 Mg Tablet) 650 mg PO Q4HR PRN PRN Reason: Pain or Fever > 38C (100.4F) Last Admin: 07/04/23 21:58 Dose: 650 mg Chlordiazepoxide HCl (Chlordiazepoxide 25 Mg Capsule) 25 mg PO Q6HR [facility] Last Admin: 07/05/23 06:23 Dose: 25 mg Chlorhexidine Gluconate (Chlorhexidine Gluconate 15 Ml Udc) 15 ml PO BID [facility] Last Admin: 07/04/23 21:57 Dose: 15 ml Diazepam (Diazepam 5 Mg Tablet) 5 mg PO Q1H PRN; Protocol PRN Reason: CIWA > 8 Last Admin: 07/05/23 04:45 Dose: 5 mg Diazepam (Diazepam Inj 5 Mg/Ml Syringe) 10 mg IVP Q30M PRN; Protocol PRN Reason: CIWA>8 Last Admin: 07/04/23 10:30 Dose: 10 mg Docusate Sodium (Docusate Sodium 250 Mg Capsule) 250 - 500 mg PO DAILY [facility] Last Admin: 07/04/23 04:29 Dose: 250 mg Enoxaparin Sodium (Enoxaparin 40 Mg/0.4 Ml Syringe) 40 mg SUBQ DAILY [facility] Last Admin: 07/04/23 08:55 Dose: 40 mg Famotidine (Famotidine 20 Mg Tablet) 20 mg PO BID [facility] Last Admin: 07/04/23 22:00 Dose: 20 mg Sodium Chloride (Normal Saline 0.9%) 1,000 mls @ 30 mls/hr IV .[id number] [facility] Last Infusion: 07/04/23 21:29 Dose: Infused Cefepime HCl 2 gm/ Sodium (Chloride) 100 mls @ 200 mls/hr IV BID [facility] Last Infusion: 07/04/23 23:10 Dose: Infused Vancomycin HCl 1 gm/Vancomycin HCl 250 mg/ Sodium Chloride 250 mls @ 167 mls/hr IV Q8H [facility] Last Infusion: 07/05/23 06:22 Dose: Infused Potassium Chloride (Potassium Chloride) 20 meq in 100 mls @ 100 mls/hr IV Q1H [facility]; Protocol Stop: 07/05/23 07:59 Last Admin: 07/05/23 06:23 Dose: 100 mls/hr Nicotine (Nicotine 14 Mg Patch) 1 patch TOP DAILY [facility] Last Admin: 07/04/23 08:55 Dose: 1 patch Ondansetron HCl (Ondansetron Odt 4 Mg Tablet) 4 mg TL Q6HR PRN PRN Reason: Nausea / Vomiting Ondansetron HCl (Ondansetron 4 Mg/2 Ml Vial) 4 mg IVP Q6HR PRN PRN Reason: Nausea / Vomiting Pantoprazole Sodium (Pantoprazole 40 Mg Vial) 40 mg IVP QDAC [facility] Last Admin: 07/05/23 06:22 Dose: Not Given Polyethylene Glycol (Polyethylene Glycol 3350 17 Gm Packet) 17 gm PO DAILY [facility] Last Admin: 07/04/23 09:00 Dose: 17 gm Multivit/Folic Acid/Iron ( Vitamin Tablet) 1 tab PO DAILYWM [facility] Last Admin: 07/04/23 08:55 Dose: 1 tab Sodium Chloride (Sodium Chloride Flush 0.9% 10 Ml Syringe) 10 ml IVP PRN PRN PRN Reason: NEEDED PER PROVIDER ORDERS Last Admin: 07/04/23 14:56 Dose: 10 ml Sodium Chloride (Sodium Chloride Flush 0.9% 10 Ml Syringe) 10 ml IVP 0100,0900,1700 [facility] Last Admin: 07/05/23 02:43 Dose: 10 ml Thiamine HCl (Thiamine 100 Mg Tablet) 100 mg PO DAILY [facility] Last Admin: 07/04/23 08:43 Dose: 100 mg Vecuronium [place] (Vecuronium 10 Mg Vial) 5 mg IVP DAILY PRN PRN Reason: Agitation Gabapentin [Neurontin] 300 mg PO TID 06/27/23 LORazepam [Ativan] 1 mg PO UD 06/27/23 Acetaminophen [Tylenol] 1,000 mg PO Q6H PRN 06/28/23 Multivitamin [Theragran] 1 tab PO DAILY 06/28/23 Vitamin B Complex Vit C No.3 [B Complex with Vitamin C] 1 cap PO DAILY 06/28/23 cloNIDine [Catapres] 0.1 mg PO Q4H PRN 06/28/23 hydrOXYzine pamoate [Hydroxyzine Pamoate] 50 mg PO Q6H PRN 06/28/23 methocarbamoL [Methocarbamol] 1,500 mg PO Q6H PRN 06/28/23 Objective - Vital Signs/Intake & Output Reviewed Vital Signs: Yes Vital Signs: Vital Signs Temp Pulse Resp BP Pulse Ox 07/05/23 06:00 36.2 C L 74 19 146/96 H 99 Intake & Output: Intake & Output 07/02/23 07/03/23 07/04/23 07/05/23 23:59 23:59 23:59 23:59 Intake Total 6316.375 4813.633 4697.226 700 Output Total 7930 4120 4670 700 Balance -1613.625 693.633 27.226 0 - Objective General Appearance: positive: No acute distress, Alert, Other (Tearful, soft spoken young man resting supine in hospital bed.) Eyes Bilateral: positive: Normal inspection ENT: positive: ENT inspection nml Neck: positive: Nml inspection Respiratory: positive: Chest non-tender, No respiratory distress, Other (Crackles heard bilaterally) Cardiovascular: positive: Regular rate & rhythm Abdomen: positive: No distention, Tenderness (Epigastric tenderness to palpation), Guarding. negative: Rebound Skin: positive: Warm, Dry Extremities: positive: Non-tender, Nml appearance, No pedal edema Neurologic/Psychiatric: positive: Oriented x3, Weakness, Depressed mood/affect. negative: Facial droop, Slurred/abnml speech - Lab Results Fish Bones: 07/05/23 08:25 07/05/23 08:25 Other Labs: Lab Results x24hrs 07/05/23 07/05/23 07/04/23 Range/Units 04:28 04:28 17:30 VBG pH 7.452 H (7.31-7.41) Ionized Calcium 1.20 (1.15-1.33) mmol/L Potassium 3.2 L 3.3 L (3.5-4.5) mmol/L POC Whole Bld Glucose (70 - 100) mg/dL Phosphorus 3.9 (2.5-5.0) mg/dL Magnesium 1.6 L (1.7-2.3) mg/dL Urine Color Urine Clarity (CLEAR) Urine pH (5.0-7.5) PH Ur Specific [place] (1.002-1.030) Urine Protein (NEGATIVE) mg/dL Urine Glucose (UA) (NEGATIVE) mg/dL Urine Ketones (NEGATIVE) mg/dL Urine Occult Blood (NEGATIVE) Urine Nitrite (NEGATIVE) Urine Bilirubin (NEGATIVE) Urine Urobilinogen (NORMAL) E.U./dL Ur Leukocyte Esterase (NEGATIVE) Urine RBC (0-5) /HPF Urine WBC (0-3) /HPF Ur Squamous Epith Cells (<= Few) Urine Bacteria (None Seen) /HPF Urine Culture Comments 07/04/23 07/04/23 07/04/23 Range/Units 12:35 12:15 11:55 VBG pH (7.31-7.41) Ionized Calcium (1.15-1.33) mmol/L Potassium 3.8 (3.5-4.5) mmol/L POC Whole Bld Glucose 109 H (70 - 100) mg/dL Phosphorus (2.5-5.0) mg/dL Magnesium (1.7-2.3) mg/dL Urine Color YELLOW Urine Clarity CLEAR (CLEAR) Urine pH 7.0 (5.0-7.5) PH Ur Specific [place] 1.015 (1.002-1.030) Urine Protein NEGATIVE (NEGATIVE) mg/dL Urine Glucose (UA) NEGATIVE (NEGATIVE) mg/dL Urine Ketones NEGATIVE (NEGATIVE) mg/dL Urine Occult Blood TRACE-LYSE (NEGATIVE) Urine Nitrite NEGATIVE (NEGATIVE) Urine Bilirubin NEGATIVE (NEGATIVE) Urine Urobilinogen 1 (NORMAL) (NORMAL) E.U./dL Ur Leukocyte Esterase NEGATIVE (NEGATIVE) Urine RBC 6-10 H (0-5) /HPF Urine WBC 0-3 (0-3) /HPF Ur Squamous Epith Cells NONE SEEN (<= Few) Urine Bacteria Rare (None Seen) /HPF Urine Culture Comments NOT INDICATED 07/04/23 07/04/23 Range/Units 08:18 08:18 VBG pH (7.31-7.41) Ionized Calcium (1.15-1.33) mmol/L Potassium 3.7 (3.5-4.5) mmol/L POC Whole Bld Glucose (70 - 100) mg/dL Phosphorus (2.5-5.0) mg/dL Magnesium 2.0 (1.7-2.3) mg/dL Urine Color Urine Clarity (CLEAR) Urine pH (5.0-7.5) PH Ur Specific [place] (1.002-1.030) Urine Protein (NEGATIVE) mg/dL Urine Glucose (UA) (NEGATIVE) mg/dL Urine Ketones (NEGATIVE) mg/dL Urine Occult Blood (NEGATIVE) Urine Nitrite (NEGATIVE) Urine Bilirubin (NEGATIVE) Urine Urobilinogen (NORMAL) E.U./dL Ur Leukocyte Esterase (NEGATIVE) Urine RBC (0-5) /HPF Urine WBC (0-3) /HPF Ur Squamous Epith Cells (<= Few) Urine Bacteria (None Seen) /HPF Urine Culture Comments Sepsis Event Note (H) - Evaluation Current Stage of Sepsis: Resolved Possible source of Sepsis: positive: Pulmonary - Sepsis Criteria Sepsis Criteria: WBC count greater than 12,000 or less than 4000 Assessment/Plan - Problem List (1) VAP (ventilator-associated pneumonia) Impression: On 06/29 he spiked a fever and was more hypoxic. That day his CXR showed a new RLL pneumonia. L.A. was 2.3 and he was in metabolic acidosis and hypotensive, needing Levophed. Levophed was discontinued 06/30. He was in septic shock, and started on IV steroids. CXR (07/02) still showed bilateral opacities. His respiratory panel PCR was negative. On extubation 07/04, balloon was deflated, patient vomited while suctioning. He then became febrile, tachypnic, hypertensive, tachycardic. O2 saturation 95% on RA. Chest xray 07/04/22 revealed persistent though improved appearance of interstitial opacities. He spiked a temperature after intubation and was switched from zosyn to cefepime and vacomycin. Will obtain sputum cultures, urine cultures, and repeat blood cultures. Today, he has been hypertensive, intermittently mildly tachycardic and tachypnic, and satting high 90s on RA. RBCs were seen on urinalysis. His 7/10 cramping muscle pain, weakness and dark urine are concerning for rhabdomyolysis. Etiology could be direct muscle injury due to prolonged immobilzation, the hyperkinetic state of delirium tremens, or nonexertional etiology of rhabdo due to anesthesia medications, infection, or electrolyte abnormalities. To obtain a CK. Plan: - obtain CK - continue vancomycin and cefepime - Continue probiotic (2) Delirium Tremens Impression: Patient drinks 6-8 beers daily. [facility] and at 72 hours after his last drink, he had visual hallucinations of his mother in the room with him, became increasingly agitated and combative. In the ER, his hallucinations and vitals were refractory to benzodiazepine management and he was intubated for airway management to use higher sedatives. He was on max dose IV Precedex drip and max dose IV Ativan drip and was still able to try to sit up and remove ET tube. He has received one banana bag at admission. His lipase was elevated slightly at 140 likely due to alcohol use. L He also has a macrocytic anemia, likely secondary to alcohol use. Even after first extubation 07/01, he was confused and agitated and scored 13 on his CIWA score. He was then reintubated 07/02. On 07/03 we attempted to wean him off sedation to extubate him, however he was unable to safely follow commands to be extubated. 07/04 he was able to be safely extubated again. His CIWA today has been 8-11. He is oriented and cooperative at this time. He is taking most of his medications PO, will move him to [facility] Surg unit tomorrow. Plan: - continue CIWA protocol and sedation with librium and diazepam - continue home metoprolol - regular diet Resolved/chronic medical conditions (3) On mechanically assisted ventilation Impression: Resolved. Reintubated 07/02. Extubated 07/04. (4) Hyponatremia Impression: RESOLVED. Last sodium was 137 today. (5) Hypokalemia Impression: Patient is on ICU electrolyte replacement protocol (6) Septic shock Impression: RESOLVED. On 06/29 he became hypotensive w/ BP 80-90 systolic. He got several saline IV boluses, then started Levophed. He was weaned off Levophed 06/30. CXR revealed RLL pneumonia as etiology of sepsis. Echo done 07/02 to r/o possible alcoholic cardiomyopathy contributing to hypotension, revealed normal LV and RV size and function, no valvular disease. His blood cultures came back negative. Plan: - continue antibiotics - continue to trend labs, CBC, vitals (7) Tobacco use Impression: Patient requested cigarettes after initial extubation 07/01. Plan: - continue daily nicotine patch (8) Constipation Impression: Resolved. Patient had bowel movement 07/05 after constipation since admission. Plan: - continue bowel regimen, continue senna, docusate
[2023-07-05] MEDS: NICOTINE 14 MG PATCH TOP SCH (08:16)
[2023-07-05] MEDS: DOCUSATE SODIUM 250 MG CAPSULE PO SCH (08:16)
[2023-07-05] MEDS: ENOXAPARIN 40 MG/0.4 ML SYRINGE SUBQ SCH (08:16)
[2023-07-05] MEDS: CEFEPIME 2 GM in SODIUM CHLORIDE 0.9% MINIBAG 100 ML IV SCH ×2 (08:16→20:44)
[2023-07-05] MEDS: PRENATAL VITAMIN TABLET PO SCH (08:16)
[2023-07-05] MEDS: CHLORHEXIDINE GLUCONATE 15 ML UDC PO SCH (08:16)
[2023-07-05] MEDS: FAMOTIDINE 20 MG TABLET PO SCH ×2 (08:16→20:44)
[2023-07-05] MEDS: THIAMINE 100 MG TABLET PO SCH (08:17)
[2023-07-05] MEDS: polyethylene glycoL 3350 17 GM PACKET PO SCH (08:17)
[2023-07-05 08:34] LABS: BASOPHILS # (AUTO) 0.1 10^3/uL (0.0-0.1); BASOPHILS % (AUTO) 0.8 %; EOSINOPHILS # (AUTO) 0.3 10^3/uL (0.0-0.7); EOSINOPHILS % (AUTO) 1.8 %; HGB - HEMOGLOBIN 11.4 g/dL (14.0-18.0); LYMPHOCYTES # (AUTO) 1.5 10^3/uL (1.5-3.5); MEAN CORPUSCULAR HEMOGLOBIN 31.8 pg (27.0-31.0); MEAN CORPUSCULAR HGB CONC 33.5 g/dL (32.0-36.0); MEAN CORPUSCULAR VOLUME 94.7 fL (80.0-94.0); MEAN PLATELET VOLUME 8.4 fL (7.4-11.4); MONOCYTES # (AUTO) 1.8 10^3/uL (0.0-1.0); MONOCYTES % (AUTO) 10.8 %; NEUTROPHILS # (AUTO) 12.6 10^3/uL (1.5-6.6); NEUTROPHILS % (AUTO) 76.7 %; PLT - PLATELET COUNT 430 10^3/uL (130-450); RED BLOOD COUNT 3.59 10^6/uL (4.70-6.10); RED CELL DISTRIBUTION WIDTH 11.9 % (12.0-15.0); WHITE BLOOD COUNT 16.4 x10^3/uL (4.8-10.8)
[2023-07-05 08:46] LABS: CALCIUM 9.6 mg/dL (8.5-10.3); CREATININE 0.4 mg/dL (0.6-1.3); POTASSIUM 3.3 mmol/L (3.5-4.5)
[2023-07-05] MEDS: POTASSIUM CHLORIDE 20 MEQ TABLET PO SCH ×2 (10:17→11:34)
[2023-07-05] MEDS: GABAPENTIN 100 MG CAPSULE PO SCH ×2 (14:45→22:15)
[2023-07-05 14:47] LABS: MAGNESIUM 1.8 mg/dL (1.7-2.3); POTASSIUM 3.7 mmol/L (3.5-4.5)
[2023-07-05] MEDS: diazePAM INJ 5 MG/ML SYRINGE IVP PRN (20:54)
[2023-07-06] MEDS: SODIUM CHLORIDE FLUSH 0.9% 10 ML SYRINGE IVP SCH ×4 (02:04→23:18)
[2023-07-06] MEDS: GABAPENTIN 100 MG CAPSULE PO SCH ×3 (05:03→21:32)
[2023-07-06] MEDS: chlordiazePOXIDE 25 MG CAPSULE PO SCH (05:03)
[2023-07-06] MEDS: VANCOMYCIN INJ 1 GM, VANCOMYCIN INJ 250 MG in SODIUM CHLORIDE 0.9% 250 ML IV SCH ×3 (05:09→21:35)
[2023-07-06 06:02] LABS: BASOPHILS % (AUTO) 1.1 %; EOSINOPHILS % (AUTO) 5.5 %; HCT - HEMATOCRIT 37.2 % (42.0-52.0); HGB - HEMOGLOBIN 12.2 g/dL (14.0-18.0); LYMPHOCYTES % (AUTO) 19.2 %; MEAN CORPUSCULAR HEMOGLOBIN 31.8 pg (27.0-31.0); MEAN CORPUSCULAR HGB CONC 32.8 g/dL (32.0-36.0); MEAN CORPUSCULAR VOLUME 96.9 fL (80.0-94.0); MEAN PLATELET VOLUME 9.2 fL (7.4-11.4); MONOCYTES % (AUTO) 15.3 %; NEUTROPHILS % (AUTO) 58.3 %; PLT - PLATELET COUNT 541 10^3/uL (130-450); RED BLOOD COUNT 3.84 10^6/uL (4.70-6.10); RED CELL DISTRIBUTION WIDTH 12.1 % (12.0-15.0); WHITE BLOOD COUNT 11.5 x10^3/uL (4.8-10.8)
[2023-07-06] MEDS: PANTOPRAZOLE 40 MG VIAL IVP SCH (06:08)
[2023-07-06 06:14] LABS: CALCIUM 9.8 mg/dL (8.5-10.3); CREATININE 0.5 mg/dL (0.6-1.3); POTASSIUM 3.4 mmol/L (3.5-4.5)
[2023-07-06 06:31] LABS: ABNORMAL LYMPHS % (MANUAL) 0 %
[2023-07-06 06:51] LABS: BAND NEUTROPHILS % (MANUAL) 4 %; DIFFERENTIAL COMMENT MANUAL DIFFERENTIAL; LYMPHOCYTES # (MANUAL) 2.8 10^3/uL (1.5-3.5); LYMPHOCYTES % (MANUAL) 22 %; MONOCYTES # (MANUAL) 1.5 10^3/uL (0.0-1.0); NEUTROPHILS # (MANUAL) 6.2 10^3/uL (1.5-6.6); PLATELET ESTIMATE, MANUAL INCREASED (>450,000) (NORMAL); RBC MORPHOLOGY (MULTIPLE) NORMAL APPEARANCE (NORMAL); REACTIVE LYMPHS % (MANUAL) 2 %
--- NOTE | 2023-07-06 08:49 | PROVIDER PROGRESS NOTE ---
Subjective - Prog Note Date Prog Note Date: 07/06/23 Prog Note Time: 08:12 - Subjective Pt reports feeling: Improved Subjective: Patient states he is feeling better today, reiterates that he wants to go home. Denies physical pain today, mentions some irritation at his IV site. Denies SOB, chest pain, myalgias, anxiety. BM last night. There were concerns about patient leaving AMA today due to miscommunication, however after discussion with patient and his mother, and stressing the importance of him staying and finishing his antibiotics, he agreed to stay. His mother will be visiting him later today. Current Medications - Current Medications Current Medications: Active Medications Acetaminophen (Acetaminophen 325 Mg Tablet) 650 mg PO Q4HR PRN PRN Reason: Pain or Fever > 38C (100.4F) Last Admin: 07/04/23 21:58 Dose: 650 mg Chlordiazepoxide HCl (Chlordiazepoxide 25 Mg Capsule) 25 mg PO Q6HR [facility] Last Admin: 07/06/23 05:03 Dose: 25 mg Diazepam (Diazepam 5 Mg Tablet) 5 mg PO Q1H PRN; Protocol PRN Reason: CIWA > 8 Last Admin: 07/05/23 04:45 Dose: 5 mg Diazepam (Diazepam Inj 5 Mg/Ml Syringe) 10 mg IVP Q30M PRN; Protocol PRN Reason: CIWA>8 Last Admin: 07/05/23 20:54 Dose: 10 mg Docusate Sodium (Docusate Sodium 250 Mg Capsule) 250 - 500 mg PO DAILY [facility] Last Admin: 07/05/23 08:16 Dose: Not Given Enoxaparin Sodium (Enoxaparin 40 Mg/0.4 Ml Syringe) 40 mg SUBQ DAILY [facility] Last Admin: 07/05/23 08:16 Dose: 40 mg Famotidine (Famotidine 20 Mg Tablet) 20 mg PO BID [facility] Last Admin: 07/05/23 20:44 Dose: 20 mg Gabapentin (Gabapentin 100 Mg Capsule) 100 mg PO TID [facility] Last Admin: 07/06/23 05:03 Dose: 100 mg Cefepime HCl 2 gm/ Sodium (Chloride) 100 mls @ 200 mls/hr IV BID [facility] Last Infusion: 07/05/23 22:16 Dose: Infused Vancomycin HCl 1 gm/Vancomycin HCl 250 mg/ Sodium Chloride 250 mls @ 167 mls/hr IV Q8H [facility] Last Infusion: 07/06/23 07:50 Dose: Infused Nicotine (Nicotine 14 Mg Patch) 1 patch TOP DAILY [facility] Last Admin: 07/05/23 08:16 Dose: 1 patch Ondansetron HCl (Ondansetron Odt 4 Mg Tablet) 4 mg TL Q6HR PRN PRN Reason: Nausea / Vomiting Ondansetron HCl (Ondansetron 4 Mg/2 Ml Vial) 4 mg IVP Q6HR PRN PRN Reason: Nausea / Vomiting Pantoprazole Sodium (Pantoprazole 40 Mg Vial) 40 mg IVP QDAC [facility] Last Admin: 07/06/23 06:08 Dose: 40 mg Polyethylene Glycol (Polyethylene Glycol 3350 17 Gm Packet) 17 gm PO DAILY [facility] Last Admin: 07/05/23 08:17 Dose: Not Given Multivit/Folic Acid/Iron ( Vitamin Tablet) 1 tab PO DAILYWM [facility] Last Admin: 07/05/23 08:16 Dose: 1 tab Sodium Chloride (Sodium Chloride Flush 0.9% 10 Ml Syringe) 10 ml IVP PRN PRN PRN Reason: NEEDED PER PROVIDER ORDERS Last Admin: 07/04/23 14:56 Dose: 10 ml Sodium Chloride (Sodium Chloride Flush 0.9% 10 Ml Syringe) 10 ml IVP 0100,0900,1700 [facility] Last Admin: 07/06/23 02:04 Dose: 10 ml Thiamine HCl (Thiamine 100 Mg Tablet) 100 mg PO DAILY [facility] Last Admin: 07/05/23 08:17 Dose: 100 mg Gabapentin [Neurontin] 300 mg PO TID 06/27/23 LORazepam [Ativan] 1 mg PO UD 06/27/23 Acetaminophen [Tylenol] 1,000 mg PO Q6H PRN 06/28/23 Multivitamin [Theragran] 1 tab PO DAILY 06/28/23 Vitamin B Complex Vit C No.3 [B Complex with Vitamin C] 1 cap PO DAILY 06/28/23 cloNIDine [Catapres] 0.1 mg PO Q4H PRN 06/28/23 hydrOXYzine pamoate [Hydroxyzine Pamoate] 50 mg PO Q6H PRN 06/28/23 methocarbamoL [Methocarbamol] 1,500 mg PO Q6H PRN 06/28/23 Objective - Vital Signs/Intake & Output Reviewed Vital Signs: Yes Vital Signs: Vital Signs x48h Temp Pulse Resp BP Pulse Ox 07/06/23 07:00 37.0 C 71 16 131/96 H 98 07/06/23 01:00 37.0 C 90 18 129/82 H 99 Intake & Output: Intake & Output 07/03/23 07/04/23 07/05/23 07/06/23 23:59 23:59 23:59 23:59 Intake Total 4813.633 4697.226 3100 490 Output Total 4120 4670 1550 Balance 693.633 27.226 1550 490 - Objective General Appearance: positive: No acute distress, Alert, Other (Soft spoken young man resting in hospital bed, using his phone.) Eyes Bilateral: positive: No lid inflammation, Conjunctivae nml ENT: positive: ENT inspection nml Neck: positive: Nml inspection Respiratory: positive: Chest non-tender, No respiratory distress, Other (Decreased breath sounds bilaterally) Cardiovascular: positive: Tachycardia Abdomen: positive: No distention, Tenderness (mild suprapubic tenderness), Guarding Skin: positive: No rash, Warm, Dry Extremities: positive: Non-tender, Nml appearance, No pedal edema Neurologic/Psychiatric: positive: Oriented x3, Other (Patient is guarded, giving short, one sentance answers to questions. Calm and cooperative, maintains good eye contact.) - Lab Results Fish Bones: 07/06/23 04:50 07/06/23 04:50 Other Labs: Lab Results x24hrs 07/06/23 07/06/23 07/05/23 Range/Units 04:50 04:50 14:27 WBC 11.5 H (4.8-10.8) x10^3/uL RBC 3.84 L (4.70-6.10) 10^6/uL Hgb 12.2 L (14.0-18.0) g/dL Hct 37.2 L (42.0-52.0) % MCV 96.9 H (80.0-94.0) fL MCH 31.8 H (27.0-31.0) pg MCHC 32.8 (32.0-36.0) g/dL RDW 12.1 (12.0-15.0) % Plt Count 541 H (130-450) 10^3/uL MPV 9.2 (7.4-11.4) fL Neut # (Auto) Not Reportable (1.5-6.6) 10^3/uL Lymph # (Auto) Not Reportable (1.5-3.5) 10^3/uL Harrison # (Auto) Not Reportable (0.0-1.0) 10^3/uL Eos # (Auto) Not Reportable (0.0-0.7) 10^3/uL Baso # (Auto) Not Reportable (0.0-0.1) 10^3/uL Absolute Nucleated RBC Not Reportable x10^3/uL Total Counted 100 Band Neuts % (Manual) 4 (0 - 10) % Reactive Lymphs % (Man) 2 % Abnorm Lymph % (Manual) 0 % Nucleated RBC % Not Reportable /100WBC Neutrophils # (Manual) 6.2 (1.5-6.6) 10^3/uL Lymphocytes # (Manual) 2.8 (1.5-3.5) 10^3/uL Monocytes # (Manual) 1.5 H (0.0-1.0) 10^3/uL Eosinophils # (Manual) 1.0 H (0-0.7) 10^3/uL Basophils # (Manual) 0.0 (0-0.1) 10^3/uL Differential Comment MANUAL DIFFERENTIAL Platelet Estimate INCREASED (>450,000) (NORMAL) RBC Morph Micro Appear NORMAL APPEARANCE (NORMAL) Sodium 140 (135-145) mmol/L Potassium 3.4 L 3.7 (3.5-4.5) mmol/L Chloride 104 (101-111) mmol/L Carbon Dioxide 22 (21-32) mmol/L Anion Gap 14.0 H (6-13) BUN 4 L (6-20) mg/dL Creatinine 0.5 L (0.6-1.3) mg/dL Estimated GFR (MDRD) 198 (>89) Glucose 94 (74-104) mg/dL Calcium 9.8 (8.5-10.3) mg/dL Magnesium 1.8 (1.7-2.3) mg/dL Total Creatine Kinase (30-223) IU/L 07/05/23 07/05/23 07/05/23 Range/Units 08:25 08:25 08:25 WBC (4.8-10.8) x10^3/uL RBC (4.70-6.10) 10^6/uL Hgb (14.0-18.0) g/dL Hct (42.0-52.0) % MCV (80.0-94.0) fL MCH (27.0-31.0) pg MCHC (32.0-36.0) g/dL RDW (12.0-15.0) % Plt Count (130-450) 10^3/uL MPV (7.4-11.4) fL Neut # (Auto) (1.5-6.6) 10^3/uL Lymph # (Auto) (1.5-3.5) 10^3/uL Harrison # (Auto) (0.0-1.0) 10^3/uL Eos # (Auto) (0.0-0.7) 10^3/uL Baso # (Auto) (0.0-0.1) 10^3/uL Absolute Nucleated RBC x10^3/uL Total Counted Band Neuts % (Manual) (0 - 10) % Reactive Lymphs % (Man) % Abnorm Lymph % (Manual) % Nucleated RBC % /100WBC Neutrophils # (Manual) (1.5-6.6) 10^3/uL Lymphocytes # (Manual) (1.5-3.5) 10^3/uL Monocytes # (Manual) (0.0-1.0) 10^3/uL Eosinophils # (Manual) (0-0.7) 10^3/uL Basophils # (Manual) (0-0.1) 10^3/uL Differential Comment Platelet Estimate (NORMAL) RBC Morph Micro Appear (NORMAL) Sodium 137 (135-145) mmol/L Potassium 3.3 L (3.5-4.5) mmol/L Chloride 102 (101-111) mmol/L Carbon Dioxide 25 (21-32) mmol/L Anion Gap 10.0 (6-13) BUN 4 L (6-20) mg/dL Creatinine 0.4 L (0.6-1.3) mg/dL Estimated GFR (MDRD) 256 (>89) Glucose 137 H (74-104) mg/dL Calcium 9.6 (8.5-10.3) mg/dL Magnesium 1.5 L (1.7-2.3) mg/dL Total Creatine Kinase 128 (30-223) IU/L 07/05/23 Range/Units 08:25 WBC 16.4 H (4.8-10.8) x10^3/uL RBC 3.59 L (4.70-6.10) 10^6/uL Hgb 11.4 L (14.0-18.0) g/dL Hct 34.0 L (42.0-52.0) % MCV 94.7 H (80.0-94.0) fL MCH 31.8 H (27.0-31.0) pg MCHC 33.5 (32.0-36.0) g/dL RDW 11.9 L (12.0-15.0) % Plt Count 430 (130-450) 10^3/uL MPV 8.4 (7.4-11.4) fL Neut # (Auto) 12.6 H (1.5-6.6) 10^3/uL Lymph # (Auto) 1.5 (1.5-3.5) 10^3/uL Harrison # (Auto) 1.8 H (0.0-1.0) 10^3/uL Eos # (Auto) 0.3 (0.0-0.7) 10^3/uL Baso # (Auto) 0.1 (0.0-0.1) 10^3/uL Absolute Nucleated RBC 0.00 x10^3/uL Total Counted Band Neuts % (Manual) (0 - 10) % Reactive Lymphs % (Man) % Abnorm Lymph % (Manual) % Nucleated RBC % 0.0 /100WBC Neutrophils # (Manual) (1.5-6.6) 10^3/uL Lymphocytes # (Manual) (1.5-3.5) 10^3/uL Monocytes # (Manual) (0.0-1.0) 10^3/uL Eosinophils # (Manual) (0-0.7) 10^3/uL Basophils # (Manual) (0-0.1) 10^3/uL Differential Comment Platelet Estimate (NORMAL) RBC Morph Micro Appear (NORMAL) Sodium (135-145) mmol/L Potassium (3.5-4.5) mmol/L Chloride (101-111) mmol/L Carbon Dioxide (21-32) mmol/L Anion Gap (6-13) BUN (6-20) mg/dL Creatinine (0.6-1.3) mg/dL Estimated GFR (MDRD) (>89) Glucose (74-104) mg/dL Calcium (8.5-10.3) mg/dL Magnesium (1.7-2.3) mg/dL Total Creatine Kinase (30-223) IU/L ABX Reporting Has patient been on IV antibiotics over the past 48 hours?: Yes Sepsis Event Note (H) - Evaluation Current Stage of Sepsis: Resolved Possible source of Sepsis: positive: Pulmonary - Sepsis Criteria Sepsis Criteria: WBC count greater than 12,000 or less than 4000 Assessment/Plan - Problem List (1) VAP (ventilator-associated pneumonia) Impression: On 06/29 he spiked a fever and was more hypoxic. That day his CXR showed a new RLL pneumonia. L.A. was 2.3 and he was in metabolic acidosis and hypotensive, needing Levophed. Levophed was discontinued 06/30. He was in septic shock, and started on IV steroids. CXR (07/02) still showed bilateral opacities. His respiratory panel PCR was negative. On extubation 07/04, balloon was deflated, patient vomited while suctioning. He then became febrile, tachypnic, hypertensive, tachycardic. O2 saturation 95% on RA. Chest xray 07/04/22 revealed persistent though improved appearance of interstitial opacities. He spiked a temperature after intubation and was switched from zosyn to cefepime and vacomycin. Sputum cultures and urine cultures were ordered however were not obtained, unclear why. Pending repeat blood cultures. He is responding to empiric antibiotic culture, so urine and sputum culture orders will be cancelled. Today, he is afebrile, hypertensive, intermittently mildly tachycardic and tachypnic, and satting high 90s on RA. His WBC has decreased, at 11.5 today. RBCs were seen on urinalysis. His 7/10 cramping muscle pain, weakness and dark urine are concerning for rhabdomyolysis, CK was reassuring this is not the case. He is deconditioned after being intubated. He is weak when ambulating and using a walker, PT to continue to work with pt Plan: - continue vancomycin and cefepime x2 more days - continue PT/OT - continue probiotic (2) Delirium Tremens Impression: Patient drinks 6-8 beers daily. He was at [facility] and at 72 hours after his last drink, he had visual hallucinations of his mother in the room with him, became increasingly agitated and combative. In the ER, his hallucinations and vitals were refractory to benzodiazepine management and he was intubated for airway management to use higher sedatives. He was on max dose IV Precedex drip and max dose IV Ativan drip and was still able to try to sit up and remove ET tube. He received one banana bag at admission. His lipase was elevated slightly at 140 likely due to alcohol use. L He also has a macrocytic anemia, likely secondary to alcohol use. Even after first extubation 07/01, he was confused and agitated and scored 13 on his CIWA score. He was then reintubated 07/02. On 07/03 we attempted to wean him off sedation to extubate him, however he was unable to safely follow commands to be extubated. 07/04 he was able to be safely extubated again. His CIWA today has been as high as 9 at times on scheduled librium and prn diazepam, improved from previous days. To decrease librium from 25 mg Q6HR to librium 10 mg TID. Continue diazepam prn. Plan: - continue CIWA protocol and sedation with decreased scheduled librium and diazepam prn - continue home metoprolol - regular diet (3) Hypokalemia Impression: Potassium 3.4, will replenish with PO potassium. Resolved/chronic medical conditions (4) On mechanically assisted ventilation Impression: Resolved. Reintubated 07/02. Extubated 07/04. Tolerating extubation well. (5) Hyponatremia Impression: RESOLVED. Sodium today WNL. (6) Septic shock Impression: RESOLVED. On 06/29 he became hypotensive w/ BP 80-90 systolic. He got several saline IV boluses, then started Levophed. He was weaned off Levophed 06/30. CXR revealed RLL pneumonia as etiology of sepsis. Echo done 07/02 to r/o possible alcoholic cardiomyopathy contributing to hypotension, revealed normal LV and RV size and function, no valvular disease. His blood cultures from 06/29 came back negative. Plan: - continue antibiotics - continue to trend labs, CBC, vitals (7) Tobacco use Impression: Patient requested cigarettes after initial extubation 07/01. Plan: - continue daily nicotine patch (8) Constipation Impression: Resolved. Patient had bowel movement 07/05 after constipation since admission. Plan: - continue bowel regimen, continue senna, docusate prn
[2023-07-06] MEDS: PRENATAL VITAMIN TABLET PO SCH (08:59)
[2023-07-06] MEDS: CEFEPIME 2 GM in SODIUM CHLORIDE 0.9% MINIBAG 100 ML IV SCH ×2 (08:59→20:56)
[2023-07-06] MEDS: NICOTINE 14 MG PATCH TOP SCH (09:00)
[2023-07-06] MEDS: DOCUSATE SODIUM 250 MG CAPSULE PO SCH (09:00)
[2023-07-06] MEDS: polyethylene glycoL 3350 17 GM PACKET PO SCH (09:00)
[2023-07-06] MEDS: FAMOTIDINE 20 MG TABLET PO SCH ×2 (09:00→20:56)
[2023-07-06] MEDS: ENOXAPARIN 40 MG/0.4 ML SYRINGE SUBQ SCH (09:00)
[2023-07-06] MEDS: THIAMINE 100 MG TABLET PO SCH (09:01)
[2023-07-06] MEDS: chlordiazePOXIDE 5 MG CAPSULE PO SCH ×2 (14:11→21:32)
[2023-07-06] MEDS: POTASSIUM CHLORIDE 20 MEQ/15 ML UDC PO SCH (19:38)
[2023-07-07] MEDS: GABAPENTIN 100 MG CAPSULE PO SCH ×3 (05:10→21:11)
[2023-07-07] MEDS: chlordiazePOXIDE 5 MG CAPSULE PO SCH ×3 (05:11→21:11)
[2023-07-07] MEDS: VANCOMYCIN INJ 1 GM, VANCOMYCIN INJ 250 MG in SODIUM CHLORIDE 0.9% 250 ML IV SCH ×3 (05:12→21:47)
[2023-07-07 06:17] LABS: BASOPHILS # (AUTO) 0.2 10^3/uL (0.0-0.1); CALCIUM 10.3 mg/dL (8.5-10.3); CREATININE 0.6 mg/dL (0.6-1.3); EOSINOPHILS # (AUTO) 0.6 10^3/uL (0.0-0.7); HGB - HEMOGLOBIN 12.6 g/dL (14.0-18.0); LYMPHOCYTES # (AUTO) 2.5 10^3/uL (1.5-3.5); LYMPHOCYTES % (AUTO) 20.4 %; MEAN CORPUSCULAR HGB CONC 32.3 g/dL (32.0-36.0); MEAN CORPUSCULAR VOLUME 96.1 fL (80.0-94.0); MEAN PLATELET VOLUME 8.4 fL (7.4-11.4); MONOCYTES # (AUTO) 1.7 10^3/uL (0.0-1.0); MONOCYTES % (AUTO) 13.5 %; NEUTROPHILS # (AUTO) 7.2 10^3/uL (1.5-6.6); NEUTROPHILS % (AUTO) 58.4 %; PLT - PLATELET COUNT 706 10^3/uL (130-450); POTASSIUM 3.8 mmol/L (3.5-4.5); RED BLOOD COUNT 4.06 10^6/uL (4.70-6.10); RED CELL DISTRIBUTION WIDTH 12.3 % (12.0-15.0); WHITE BLOOD COUNT 12.3 x10^3/uL (4.8-10.8)
[2023-07-07 06:42] LABS: SLIDE REVIEW? Indicated
[2023-07-07] MEDS: PANTOPRAZOLE 40 MG VIAL IVP SCH (06:50)
[2023-07-07 08:01] LABS: PLATELET ESTIMATE, MANUAL INCREASED (>450,000) (NORMAL); PLATELET MORPHOLOGY NORMAL APPEARANCE (NORMAL)
[2023-07-07 08:02] LABS: RBC MORPHOLOGY (MULTIPLE) NORMAL APPEARANCE (NORMAL); WBC MORPHOLOGY (MULTIPLE) NORMAL APPEARANCE (NORMAL)
[2023-07-07] MEDS: ENOXAPARIN 40 MG/0.4 ML SYRINGE SUBQ SCH (09:55)
[2023-07-07] MEDS: FAMOTIDINE 20 MG TABLET PO SCH ×2 (09:55→21:11)
[2023-07-07] MEDS: PRENATAL VITAMIN TABLET PO SCH (09:55)
[2023-07-07] MEDS: THIAMINE 100 MG TABLET PO SCH (09:55)
[2023-07-07] MEDS: POTASSIUM CHLORIDE 20 MEQ/15 ML UDC PO SCH (09:55)
[2023-07-07] MEDS: DOCUSATE SODIUM 250 MG CAPSULE PO SCH (09:56)
[2023-07-07] MEDS: polyethylene glycoL 3350 17 GM PACKET PO SCH (09:56)
[2023-07-07] MEDS: NICOTINE 14 MG PATCH TOP SCH (09:56)
[2023-07-07] MEDS: CEFEPIME 2 GM in SODIUM CHLORIDE 0.9% MINIBAG 100 ML IV SCH ×2 (09:58→21:11)
[2023-07-07] MEDS: SODIUM CHLORIDE FLUSH 0.9% 10 ML SYRINGE IVP SCH ×2 (09:58→21:11)
--- NOTE | 2023-07-07 11:19 | PROVIDER PROGRESS NOTE ---
Subjective - Prog Note Date Prog Note Date: 07/07/23 Prog Note Time: 10:52 - Subjective Subjective: Patient resting in bed with lights off, on his phone with blanket covering his head. He denies physical pain today, denies SOB, chest pain, palpitations, f ever. He states that he has had chills last night but states that he thinks that's because he was cold last night. He states that he got an MRI and he is being discharged today, and his mother is picking him up in an hour. When asked who told him that he was leaving today, he gives a vague description of a male staff member who told him he would be discharged today. When we discussed that this was not the plan and that he needs another night in the hospital, patient insists that he needs to go home because his mother is driving to [place] tomorrow and she needs someone to accompany her. After discussion of the importance of finishing his antibiotics, patient agrees to stay another day. Current Medications - Current Medications Current Medications: Active Medications Acetaminophen (Acetaminophen 325 Mg Tablet) 650 mg PO Q4HR PRN PRN Reason: Pain or Fever > 38C (100.4F) Last Admin: 07/04/23 21:58 Dose: 650 mg Chlordiazepoxide HCl (Chlordiazepoxide 5 Mg Capsule) 10 mg PO TID [facility] Last Admin: 07/07/23 05:11 Dose: 10 mg Diazepam (Diazepam 5 Mg Tablet) 5 mg PO Q1H PRN; Protocol PRN Reason: CIWA > 8 Last Admin: 07/05/23 04:45 Dose: 5 mg Diazepam (Diazepam Inj 5 Mg/Ml Syringe) 10 mg IVP Q30M PRN; Protocol PRN Reason: CIWA>8 Last Admin: 07/05/23 20:54 Dose: 10 mg Docusate Sodium (Docusate Sodium 250 Mg Capsule) 250 - 500 mg PO DAILY [facility] Last Admin: 07/07/23 09:56 Dose: Not Given Enoxaparin Sodium (Enoxaparin 40 Mg/0.4 Ml Syringe) 40 mg SUBQ DAILY [facility] Last Admin: 07/07/23 09:55 Dose: 40 mg Famotidine (Famotidine 20 Mg Tablet) 20 mg PO BID [facility] Last Admin: 07/07/23 09:55 Dose: 20 mg Gabapentin (Gabapentin 100 Mg Capsule) 100 mg PO TID [facility] Last Admin: 07/07/23 05:10 Dose: 100 mg Cefepime HCl 2 gm/ Sodium (Chloride) 100 mls @ 200 mls/hr IV BID [facility] Last Infusion: 07/07/23 10:45 Dose: Infused Vancomycin HCl 1 gm/Vancomycin HCl 250 mg/ Sodium Chloride 250 mls @ 167 mls/hr IV Q8H [facility] Last Infusion: 07/07/23 06:43 Dose: Infused Nicotine (Nicotine 14 Mg Patch) 1 patch TOP DAILY [facility] Last Admin: 07/07/23 09:56 Dose: 1 patch Ondansetron HCl (Ondansetron Odt 4 Mg Tablet) 4 mg TL Q6HR PRN PRN Reason: Nausea / Vomiting Ondansetron HCl (Ondansetron 4 Mg/2 Ml Vial) 4 mg IVP Q6HR PRN PRN Reason: Nausea / Vomiting Pantoprazole Sodium (Pantoprazole 40 Mg Tablet) 40 mg PO QDAC [facility] Polyethylene Glycol (Polyethylene Glycol 3350 17 Gm Packet) 17 gm PO DAILY [facility] Last Admin: 07/07/23 09:56 Dose: Not Given Potassium Chloride (Potassium Chloride 20 Meq/15 Ml Udc) 20 meq PO DAILYWM [facility] Last Admin: 07/07/23 09:55 Dose: 20 meq Multivit/Folic Acid/Iron ( Vitamin Tablet) 1 tab PO DAILYWM [facility] Last Admin: 07/07/23 09:55 Dose: 1 tab Sodium Chloride (Sodium Chloride Flush 0.9% 10 Ml Syringe) 10 ml IVP PRN PRN PRN Reason: NEEDED PER PROVIDER ORDERS Last Admin: 07/04/23 14:56 Dose: 10 ml Sodium Chloride (Sodium Chloride Flush 0.9% 10 Ml Syringe) 10 ml IVP 0100,0900,1700 [facility] Last Admin: 07/07/23 09:58 Dose: 10 ml Thiamine HCl (Thiamine 100 Mg Tablet) 100 mg PO DAILY [facility] Last Admin: 07/07/23 09:55 Dose: 100 mg Gabapentin [Neurontin] 300 mg PO TID 06/27/23 LORazepam [Ativan] 1 mg PO UD 06/27/23 Acetaminophen [Tylenol] 1,000 mg PO Q6H PRN 06/28/23 Multivitamin [Theragran] 1 tab PO DAILY 06/28/23 Vitamin B Complex Vit C No.3 [B Complex with Vitamin C] 1 cap PO DAILY 06/28/23 cloNIDine [Catapres] 0.1 mg PO Q4H PRN 06/28/23 hydrOXYzine pamoate [Hydroxyzine Pamoate] 50 mg PO Q6H PRN 06/28/23 methocarbamoL [Methocarbamol] 1,500 mg PO Q6H PRN 06/28/23 Objective - Vital Signs/Intake & Output Reviewed Vital Signs: Yes Vital Signs: Vital Signs x48h Temp Pulse Resp BP Pulse Ox 07/07/23 07:50 37.2 C 87 19 118/81 H 99 07/07/23 05:00 36.6 C 84 16 112/73 97 Intake & Output: Intake & Output 07/04/23 07/05/23 07/06/23 07/07/23 23:59 23:59 23:59 23:59 Intake Total 4697.226 3100 2030 350 Output Total 4670 1550 300 501 Balance 27.226 1550 1730 -151 - Objective General Appearance: positive: No acute distress, Alert, Other (Anxious appearing young gentleman sitting upright in bed.) Eyes Bilateral: positive: No lid inflammation, Conjunctivae nml ENT: positive: ENT inspection nml Neck: positive: Nml inspection Respiratory: positive: Chest non-tender, No respiratory distress, Other (Decreased breath sounds bilaterally) Cardiovascular: positive: Tachycardia (regular rhythm) Abdomen: positive: Non-tender Back: positive: Nml inspection Skin: positive: Dry, Other (Hot to the touch) Extremities: positive: Non-tender, No pedal edema Neurologic/Psychiatric: positive: Disoriented to time (Patient thinks date is May 2024.), Other (Oriented to self and place. Patient confabulating hospital events.) - Lab Results Fish Bones: 07/07/23 05:19 07/07/23 05:19 Other Labs: Lab Results x24hrs 07/07/23 07/07/23 Range/Units 05:19 05:19 WBC 12.3 H (4.8-10.8) x10^3/uL RBC 4.06 L (4.70-6.10) 10^6/uL Hgb 12.6 L (14.0-18.0) g/dL Hct 39.0 L (42.0-52.0) % MCV 96.1 H (80.0-94.0) fL MCH 31.0 (27.0-31.0) pg MCHC 32.3 (32.0-36.0) g/dL RDW 12.3 (12.0-15.0) % Plt Count 706 H (130-450) 10^3/uL MPV 8.4 (7.4-11.4) fL Neut # (Auto) 7.2 H (1.5-6.6) 10^3/uL Lymph # (Auto) 2.5 (1.5-3.5) 10^3/uL [place]ike # (Auto) 1.7 H (0.0-1.0) 10^3/uL Eos # (Auto) 0.6 (0.0-0.7) 10^3/uL Baso # (Auto) 0.2 H (0.0-0.1) 10^3/uL Absolute Nucleated RBC 0.00 x10^3/uL Nucleated RBC % 0.0 /100WBC Manual Slide Review Indicated WBC Morphology NORMAL APPEARANCE (NORMAL) Platelet Estimate INCREASED (>450,000) (NORMAL) Platelet Morphology NORMAL APPEARANCE (NORMAL) RBC Morph Micro Appear NORMAL APPEARANCE (NORMAL) Sodium 138 (135-145) mmol/L Potassium 3.8 (3.5-4.5) mmol/L Chloride 104 (101-111) mmol/L Carbon Dioxide 24 (21-32) mmol/L Anion Gap 10.0 (6-13) BUN 6 (6-20) mg/dL Creatinine 0.6 (0.6-1.3) mg/dL Estimated GFR (MDRD) 160 (>89) Glucose 92 (74-104) mg/dL Calcium 10.3 (8.5-10.3) mg/dL ABX Reporting Has patient been on IV antibiotics over the past 48 hours?: Yes Sepsis Event Note (H) - Evaluation Current Stage of Sepsis: Resolved Possible source of Sepsis: positive: Pulmonary - Sepsis Criteria Sepsis Criteria: WBC count greater than 12,000 or less than 4000 Assessment/Plan - Problem List (1) VAP (ventilator-associated pneumonia) Impression: On 06/29 he spiked a fever and was more hypoxic. That day his CXR showed a new RLL pneumonia. L.A. was 2.3 and he was in metabolic acidosis and hypotensive, needing Levophed. Levophed was discontinued 06/30. He was in septic shock, and started on IV steroids. CXR (07/02) still showed bilateral opacities. His respiratory panel PCR was negative. On extubation 07/04, balloon was deflated, patient vomited while suctioning. He then became febrile, tachypnic, hypertensive, tachycardic. O2 saturation 95% on RA. Chest xray 07/04/22 revealed persistent though improved appearance of interstitial opacities. He spiked a temperature after intubation and was switched from zosyn to cefepime and vacomycin. Sputum cultures and urine cultures were ordered however were not obtained, unclear why. He is responding to empiric antibiotic culture, so urine and sputum culture orders were cancelled. No growth on repeat blood cultures so far. I am concerned he is sicker than he is verbalizing, as it is very clear he wants to go home and may be downplaying his symptoms. On exam his breath sounds were decreased bilaterally, he was hot to the touch and tachycardic. He is afebrile, mildly hypertensive, satting high 90s on RA, RR WNL. WBC 12.3 today. Will repeat CXR to evaluate status of pneumonia. Plan for discharge tomorrow. Plan: - repeat CXR - continue vancomycin and cefepime x1 more day - continue probiotic (2) Delirium Tremens Impression: Patient drinks 6-8 beers daily. He was at [facility] and at 72 hours after his last drink, he had visual hallucinations of his mother in the room with him, became increasingly agitated and combative. In the ER, his hallucinations and vitals were refractory to benzodiazepine management and he was intubated for airway management to use higher sedatives. He was on max dose IV Precedex drip and max dose IV Ativan drip and was still able to try to sit up and remove ET tube. He received one banana bag at admission. His lipase was elevated slightly at 140 likely due to alcohol use. L He also has a macrocytic anemia, likely secondary to alcohol use. Even after first extubation 07/01, he was confused and agitated and scored 13 on his CIWA score. He was then reintubated 07/02. On 07/03 we attempted to wean him off sedation to extubate him, however he was unable to safely follow commands to be extubated. 07/04 he was able to be safely extubated again. His CIWA in the past 24 hours has been between 0-5 on scheduled librium and prn diazepam, improved from previous days. Continue diazepam prn. He still has c louded sensorium. He cannot return to [facility] since he isn't withdrawing anymore, he will need to call and set up outpatient rehab per . Plan: - continue CIWA protocol, scheduled librium and diazepam prn - continue supplemental thiamine and multivitamin - continue home metoprolol - regular diet Resolved/chronic medical conditions (3) Hypokalemia Impression: Resolved. Potassium WNL. (4) On mechanically assisted ventilation Impression: Resolved. Reintubated 07/02. Extubated 07/04. Tolerating extubation well. (5) Hyponatremia Impression: RESOLVED. Sodium today WNL. (6) Septic shock Impression: RESOLVED. On 06/29 he became hypotensive w/ BP 80-90 systolic. He got several saline IV boluses, then started Levophed. He was weaned off Levophed 06/30. CXR revealed RLL pneumonia as etiology of sepsis. Echo done 07/02 to r/o possible alcoholic cardiomyopathy contributing to hypotension, revealed normal LV and RV size and function, no valvular disease. His blood cultures from 06/29 came back negative. Plan: - continue antibiotics - continue to trend labs, CBC, vitals (7) Tobacco use Impression: Patient requested cigarettes after initial extubation 07/01. Plan: - continue daily nicotine patch (8) Constipation Impression: Resolved. Patient had bowel movement 07/05 after constipation since admission, BMs loose since. Plan: - continue bowel regimen, continue senna, docusate prn
--- NOTE | 2023-07-07 18:25 | XRAY Report ---
PROCEDURE: Chest 1V INDICATIONS: fever, sob in known pneumonia TECHNIQUE: One view of the chest was acquired. COMPARISON: Chest radiograph on July 04, 2023. FINDINGS: Surgical changes and devices: Interval removal of right central venous catheter. Lungs and pleura: Bilateral diffuse interstitial prominence has decreased. No new lung abnormality. Trace small pleural effusions have resolved. No pneumothorax. Mediastinum: Mediastinal contours appear normal. Heart size is normal. Bones and chest wall: No suspicious bony lesions. Overlying soft tissues appear unremarkable. IMPRESSION: 1.Bilateral diffuse opacities have decreased suggestive of improving edema, aspiration and/or infecti on. No new lung abnormality. 2.Trace bilateral pleural effusions have resolved. Reviewed by: Abi Mathis MD on 07/07/2023 6:24 PM PST Approved by: Abi Mathis MD on 07/07/2023 6:24 PM PST Station ID: [id number]
[2023-07-07] MEDS: ACETAMINOPHEN 325 MG TABLET PO PRN (18:57)
[2023-07-08] MEDS: ACETAMINOPHEN 325 MG TABLET PO PRN ×2 (01:06→06:23)
[2023-07-08] MEDS: chlordiazePOXIDE 5 MG CAPSULE PO SCH (05:09)
[2023-07-08] MEDS: GABAPENTIN 100 MG CAPSULE PO SCH (05:09)
[2023-07-08] MEDS: VANCOMYCIN INJ 1 GM, VANCOMYCIN INJ 250 MG in SODIUM CHLORIDE 0.9% 250 ML IV SCH (05:10)
[2023-07-08 05:37] LABS: BASOPHILS # (AUTO) 0.2 10^3/uL (0.0-0.1); BASOPHILS % (AUTO) 1.9 %; EOSINOPHILS # (AUTO) 0.5 10^3/uL (0.0-0.7); EOSINOPHILS % (AUTO) 4.4 %; HCT - HEMATOCRIT 38.4 % (42.0-52.0); HGB - HEMOGLOBIN 12.4 g/dL (14.0-18.0); LYMPHOCYTES # (AUTO) 2.4 10^3/uL (1.5-3.5); LYMPHOCYTES % (AUTO) 19.4 %; MEAN CORPUSCULAR HEMOGLOBIN 31.6 pg (27.0-31.0); MEAN CORPUSCULAR HGB CONC 32.3 g/dL (32.0-36.0); MEAN CORPUSCULAR VOLUME 97.7 fL (80.0-94.0); MEAN PLATELET VOLUME 7.8 fL (7.4-11.4); MONOCYTES # (AUTO) 1.3 10^3/uL (0.0-1.0); MONOCYTES % (AUTO) 10.9 %; NEUTROPHILS # (AUTO) 7.8 10^3/uL (1.5-6.6); NEUTROPHILS % (AUTO) 62.9 %; PLT - PLATELET COUNT 719 10^3/uL (130-450); RED BLOOD COUNT 3.93 10^6/uL (4.70-6.10); RED CELL DISTRIBUTION WIDTH 12.3 % (12.0-15.0); WHITE BLOOD COUNT 12.3 x10^3/uL (4.8-10.8)
[2023-07-08 05:58] LABS: CALCIUM 10.3 mg/dL (8.5-10.3); CREATININE 0.6 mg/dL (0.6-1.3); POTASSIUM 3.9 mmol/L (3.5-4.5)
[2023-07-08] MEDS ORDERED: PANTOPRAZOLE 40 MG TABLET PO SCH (07:00)
[2023-07-08] MEDS: FAMOTIDINE 20 MG TABLET PO SCH (08:08)
[2023-07-08] MEDS: polyethylene glycoL 3350 17 GM PACKET PO SCH (08:08)
[2023-07-08] MEDS: CEFEPIME 2 GM in SODIUM CHLORIDE 0.9% MINIBAG 100 ML IV SCH (08:08)
[2023-07-08] MEDS: POTASSIUM CHLORIDE 20 MEQ/15 ML UDC PO SCH (08:09)
[2023-07-08] MEDS: PRENATAL VITAMIN TABLET PO SCH (08:09)
[2023-07-08] MEDS: DOCUSATE SODIUM 250 MG CAPSULE PO SCH (08:09)
[2023-07-08] MEDS: THIAMINE 100 MG TABLET PO SCH (08:09)
[2023-07-08] MEDS: ENOXAPARIN 40 MG/0.4 ML SYRINGE SUBQ SCH (08:13)
[2023-07-08] MEDS: NICOTINE 14 MG PATCH TOP SCH (08:14)
[2023-07-08] MEDS: SODIUM CHLORIDE FLUSH 0.9% 10 ML SYRINGE IVP SCH ×2 (08:14)
--- NOTE | 2023-07-08 08:30 | Discharge Plan ---
Discharge Plan Problem Reviewed?: Yes Disposition: Home, Self Care Condition: Fair Prescriptions: Thiamine [Vitamin B-1] 100 mg PO DAILY #30 tab Diet: Regular Activity Restrictions: No Restrictions Shower Restrictions: No Driving Restrictions: No Weight Bearing: Full Weight Health Concerns: You came to our emergency room because you have been at an alcohol rehab center and were going through severe, severe withdrawal. Your behavior, which is not under control because you are in withdrawal, resulted in being put in restraints, and intubated. We were giving you so many medicines to sedate you that we were afraid that you are going to stop breathing. A few days later we tried to take the breathing tube out of your mouth and see how you did. For the first hours of the day you did fine and then later that night you again became violent and were striking the nurses. So we had to reintubate you and resedate you. And also put you back on restraints. A few days after that, we lighten the sedation and you were able to follow commands. Indicated that you knew where you were with your eyes and your hands when he asked questions. And we successfully took the breathing tube out of your mouth. Since then you have still had mild withdrawal. Today is day 12 of you being in the hospital. When you get up and walk you are very shaky. So be very careful when you go home and hold onto railings if it going on stairs. You have completed antibiotics for pneumonia and do not need any more antibiotics. Plan of Treatment: 1. Your plan is to go back into rehab. I think that is a great thought. Unfortunately you cannot go back into rehab in [place]. That organization is for someone who is actively withdrawing. You are no longer actively withdrawing so you would have to go to a different type of rehab facility. 2. You have completed antibiotic therapy and did not need any more antibiotics 3. Please make sure you take thiamine 100 mg tablet today, and a vitamin which has a lot of folate and B12 vitamins. It helps a lot with your bone marrow in your brain if you take that. Please see your primary care provider in follow-up. And please do not ever drink again. Care Goals: To stay clean and sober for the rest of your life Assessment: Patient is alert, oriented to person, place, time and situation. He is self decisional and he promises to try and follow through. He is scared. No Smoking: If you smoke, Please STOP! Call for help.
[2023-07-08 09:22] VITALS: BP 123/81; O2SAT 98
--- NOTE | 2023-07-08 10:37 | DISCHARGE SUMMARY ---
"Discharge Summary Admit Date: 06/27/23 Discharge Date: 07/08/23 Discharging Provider: Navya Colon MD Primary Care Provider: None Condition at Discharge: Fair Discharge Disposition: Home, Self Care Discharge Facility Name: [facility] - DIAGNOSES Admission Diagnoses: 1. Delirium tremens - resolved. 2. VAP (ventilator-associated pneumonia) - Resolved. Abx treatment completed 07/08 3. On mechanically assisted ventilation - resolved. Extubated 07/04 and tolerated well. 4. Septic shock - resolved. 5. Alcohol abuse - No longer in withdrawal. Patient plans to follow up in outpatient rehab facility. To follow up with PCP. 6. Tobacco use - nicotine patches given during hospitalization. 7. Hypokalemia - resolved 8. Hyponatremia - resolved 9. Metabolic acidosis - resolved. 10. Constipation - resolved. - HPI History of Present Illness: Francis Meyer is a 27 yo M with a PMHx of HTN who presented to the ED via EMS from [facility] for hallucinations. Patient drinks 6-8 beers daily. He was at [facility] going through EtOH withdrawal x3 days, initially managed with IV fluids and prn ativan, as hallucinations persisted he was given benadryl and haldol, then transferred to the ED when hallucinations persisted. Per medics, patient had fixed visual hallucination of his mother in the room with him, though was otherwise lucid and appropriate, but VS were stable at this time. Initially in the ED he continued to have a fixed hallucination of his mother being with him, but did not display any other psychosis. He was hypertensive at 141/100 and slightly tachycardic in the 90s-100s. He was not sweating, nauseated, or significantly tremulous. He was treated with IV fluids and phenobarbital initially and labs were obtained. Then he became increasingly more agitated, tachycardic and hypertensive and additional ativan, valium and haldol were administered. His hallucinations and vitals were refractory to the sedatives given and he was intubated for airway management to use higher sedatives. Patient resting in bed today, was excited to hear he is being discharged. Denies any physical pain. Denies cough, shortness of breath, chest pain, dysuria, fever/chills, rash or skin changes. - CONSULTS | PROCEDURES Procedures: 07/04/23 - Blood cultures - No growth after 2 days 06/29/23 - Blood cultures - No growth after 5 days EKG 06/27/23 - Rate: 90, Rhythm: NSR, Ruffin: Normal, Intervals: Normal TN, RBBB, QRS: Normal Ischemia: ST elevation c/w repol, Non specific changes Compare to prior EKG: Old EKG unavailable Computer interpretation: J-point/repol, not ischemia EKG 06/29/23 - NSR, rate 94, incomplete RBBB, inferior T wave flattening and flat T waves in V1 and V2. Since EKG from 06/27/2023, T wave flattening in V1 and V2 are new. Transthoracic Echocardiogram 07/02/23 - LV size and wall thickness normal. LV systolic function normal with EF of 55-60%. RV normal in size and function. No significant valvular disease. PROCEDURE: CXR for central line placement 06/27/23 13:06 CXR - ETT in expected location, NGT extends below level of film. No acute cardiopulmonary process. 06/27/23 15:55 CXR - NGT present distal tip projecting below L hemidiaphragm. Right sided central venous catheter present distal tip projecting over mid SVC. ETT present approx. 2.2 cm superior to the adriana. 06/29/23 08:11 CXR for hypoxia on vent - Subtle hazy opacity found in R infrahilar region concerning for developing RLL infiltrate. No significant pleural effusion, no gross pneumothorax. 06/29/23 18:28 CXR for fever, worsening hypoxia - Diffuse airspace opacities of bilateral lungs, progressed from earlier radiograph. Appropriate ETT and and right central line. 06/30/23 CXR f/u infiltrates vs. ARDS - Similar multifocal airspace opacities. Suspected superimposed small to moderate pleural effusions. Support devices project over appropriate positions. 07/02/23 CXR post intubation - Interval worsening of bilateral lung aeration suggestive of worsening bilateral pulmonary infiltrates. Small bilateral pleural effusion. No pneumothorax. 07/02/23 Abdominal CXR No BM - Mild constipation. No bowel obstruction or gross free air. 07/04/23 CXR s/p extubation, aspiration, fever, tachy - Persistent although improved appearance of interstitial opacities 07/07/23 CXR - Bilateral diffuse opacities have decreased suggestive of improving edema, aspiration and/or infection. No new lung abnormality. Trace bilateral pleural effusions have resolved. - HOSPITAL COURSE Hospital Course: He received one banana bag at admission. He was hyponatremic and hypokalemic and this was treated and monitored closely. His lipase was elevated slightly at 140 likely due to alcohol use and he he had a macrocytic anemia, likely secondary to alcohol use. He was on lorazepam drip, valium prn IV pushes based on RASS score, and precedex drip. He is still able to awaken despite these 2 iv sedative drips. A fentanyl drip was added for pain management. On 06/29 NG feeds were started. He also spiked a fever and was more hypoxic, and WBC increased to 12.9. He was started on empiric IV zosyn. His CXR (06/29) showed a new RLL pneumonia. By mid day, his L.A. was 2.3 and he was in metabolic acidosis and hypotensive, he was in septic shock. He received several saline boluses and then was started on Levophed and IV steroids. UA, blood cultures, respiratory PCR panel and an echo were all ordered. Levophed was discontinued 06/30. He was in septic shock, and started on IV steroids. His respiratory panel PCR was negative. His blood cultures from 06/29 came back negative. He was extubated 07/01, he was confused and agitated and scored 13 on his CIWA score. He then continued to escalate, becoming agitated and unresponsive to sedatives. He was reintubated 07/02. CXR (07/02) still showed bilateral opacities. On 07/03 we attempted to wean him off sedation to extubate him, however he was unable to safely follow commands to be extubated. 07/04 he was able to be safely extubated again. On this extubation, balloon was deflated, patient vomited while suctioning. He then became febrile, tachypnic, hypertensive, tachycardic with a cough. O2 saturation 95% on RA. Chest xray 07/04 revealed persistent though improved appearance of interstitial opacities. He was switched from zosyn to cefepime and vacomycin. Sputum cultures and urine cultures were ordered however were not obtained, unclear why. He responded to empiric antibiotic culture, so urine and sputum culture orders were cancelled. No growth on repeat blood cultures done 07/04. WBCs elevated 07/05, though his severe cough and fever resolved. Repeat CXR assured his pneumonia did not worsen. He tolerated extubation well and was placed on CIWA protocol with scheduled librium and prn diazepam. He still had clouded sensorium and at times was disoriented to the time/date, and told staff and his mother he was leaving the hospital out of confusion. Though confused, he was pleasant, calm and cooperative. [facility] Upon discharge today 07/08, he had completed antibiotic therapy for his pneumonia and he expressed that his plan is to go to outpatient rehab. He was discharged with thiamine, multivitamin and B12 supplementation. To follow up with PCP. - ALLERGIES Allergies/Adverse Reactions: Allergies Allergy/AdvReac Type Severity Reaction Status Date / Time No Known Drug Allergies Allergy Verified 05/22/23 21:10 - MEDICATIONS Home Medications: Ambulatory Orders Medication Instructions Recorded Confirmed Gabapentin [Neurontin] 300 mg PO TID 06/27/23 06/27/23 LORazepam [Ativan] 1 mg PO UD 06/27/23 06/28/23 Acetaminophen [Tylenol] 1,000 mg PO Q6H PRN 06/28/23 06/28/23 Multivitamin [Theragran] 1 tab PO DAILY 06/28/23 06/28/23 Vitamin B Complex Vit C No.3 [B 1 cap PO DAILY 06/28/23 06/28/23 Complex with Vitamin C] cloNIDine [Catapres] 0.1 mg PO Q4H PRN 06/28/23 06/28/23 hydrOXYzine pamoate [Hydroxyzine 50 mg PO Q6H PRN 06/28/23 06/28/23 Pamoate] methocarbamoL [Methocarbamol] 1,500 mg PO Q6H PRN 06/28/23 06/28/23 Thiamine [Vitamin B-1] 100 mg PO DAILY #30 tab 07/08/23 - PHYSICAL EXAM AT DISCHARGE General Appearance: positive: No acute distress, Alert Respiratory: positive: Chest non-tender, No respiratory distress, Breath sounds nml (Decreased breath sounds at bases) Cardiovascular: positive: Regular rate & rhythm Abdomen: positive: Non-tender Skin: positive: Warm, Dry Neurologic/Psychiatric: positive: Oriented x3, Mood/affect nml (Expresses excitement to go home. ) - LABS Result Diagrams: 07/08/23 05:25 07/08/23 05:25 - SEPSIS Current Stage of Sepsis: Resolved Possible source of Sepsis: Pulmonary Sepsis Criteria: WBC count greater than 12,000 or less than 4000 - FOLLOW UP Follow Up: Follow up with PCP. Follow up in outpatient rehab facility - TIME SPENT Time Spent in Discharge (Minutes): 40"
== END 2023-07-08 10:45 | disposition home or self-care (01) | DRG 896 ==
LOC: EDUNIT# → ED 09:11 → ICU 13:54 → MS3 07-06 11:52
PROVIDERS: ADMIT Specialist; ATTEND Specialist
PROC: 0BH17EZ Insertion of Endotracheal Airway into Trachea, Via Natural or Artificial Opening (ICD-10-PCS; principal; 2023-06-27)
PROC: 5A1945Z Respiratory Ventilation, 24-96 Consecutive Hours (ICD-10-PCS; 2023-06-27)
PROC: 02HV33Z Insertion of Infusion Device into Superior Vena Cava, Percutaneous Approach (ICD-10-PCS; 2023-06-27)
PROC: 0DH67UZ Insertion of Feeding Device into Stomach, Via Natural or Artificial Opening (ICD-10-PCS; 2023-06-29)
PROC: 0BH17EZ Insertion of Endotracheal Airway into Trachea, Via Natural or Artificial Opening (ICD-10-PCS; 2023-07-02)
PROC: 5A1945Z Respiratory Ventilation, 24-96 Consecutive Hours (ICD-10-PCS; 2023-07-02)
DX: F10.131 Alcohol abuse with withdrawal delirium (principal); A41.9 Sepsis, unspecified organism; R65.21 Severe sepsis with septic shock; J95.851 Ventilator associated pneumonia; E87.1 Hypo-osmolality and hyponatremia; E87.20 Acidosis, unspecified; E87.3 Alkalosis; E87.6 Hypokalemia; K59.00 Constipation, unspecified; I10 Essential (primary) hypertension; I45.10 Unspecified right bundle-branch block; R94.31 Abnormal electrocardiogram [ECG] [EKG]; R09.02 Hypoxemia; R79.89 Other specified abnormal findings of blood chemistry; D53.9 Nutritional anemia, unspecified; T44.7X6A Underdosing of beta-adrenoreceptor antagonists, initial encounter; I95.9 Hypotension, unspecified; S80.12XA Contusion of left lower leg, initial encounter; S80.11XA Contusion of right lower leg, initial encounter; X58.XXXA Exposure to other specified factors, initial encounter; R11.10 Vomiting, unspecified; F17.210 Nicotine dependence, cigarettes, uncomplicated; Z20.822 Contact with and (suspected) exposure to COVID-19; Z78.1 Physical restraint status; Z79.899 Other long term (current) drug therapy; Z81.1 Family history of alcohol abuse and dependence; Z91.148 Patient's other noncompliance with medication regimen for other reason
CPT/HCPCS: 31500; 36415; 36556; 36600; 71045; 74018; 80048; 80053; 80076; 81001; 82330; 82550; 82607; 82746; 82803; 83605; 83690; 83735; 83880; 84100; 84132; 84134; 84478; 84484; 85025; 85610; 87040; 87633; 87640; 93005; 93306; 94002; 94003; 96361; 96374; 96375; 99291; A9270; J0131; J0330; J1650; J2060; J2560; J2765; J3010; J3370; J3411; J8499; 82310; 87086; 93307

== ENCOUNTER 2023-07-10 05:02 | Emergency (ER) | payer MEDICAID ==
--- NOTE | 2023-07-10 05:10 | ED Physician Documentation ---
History of Present Illness - Stated complaint Stated Complaint: BANDAGE REMOVAL - History obtained from History obtained from: Patient - Additonal information Additional information: Patient was admitted 06/27/23 to [facility] for severe ethanol withdrawal requiring intubation for stabilization; signs and symptoms were c/w true delirium tremens. He was discharged 07/08/23. He presents at this time asking if the bandage over the right chest wall where a central line had been can be removed. He says he was told he can remove it at home at this time, but he recalls something about concern over a blood clot forming at the site "and they said it could go to the heart" (per patient). He is thus reluctant to remove the bandage but was told to take it off by the end of the day today; comes to ED requesting we remove it. He feels well, is asymptomatic. PD PAST MEDICAL HISTORY - Past Medical History Cardiovascular: Hypertension Respiratory: None Neuro: None Endocrine/Autoimmune: None GI: None : None HEENT: None Psych: None Musculoskeletal: None Derm: None - Past Surgical History Past Surgical History: No - Present Medications Home Medications: Ambulatory Orders Medication Instructions Recorded Confirmed Gabapentin [Neurontin] 300 mg PO TID 06/27/23 06/27/23 LORazepam [Ativan] 1 mg PO UD 06/27/23 06/28/23 Acetaminophen [Tylenol] 1,000 mg PO Q6H PRN 06/28/23 06/28/23 Multivitamin [Theragran] 1 tab PO DAILY 06/28/23 06/28/23 Vitamin B Complex Vit C No.3 [B 1 cap PO DAILY 06/28/23 06/28/23 Complex with Vitamin C] cloNIDine [Catapres] 0.1 mg PO Q4H PRN 06/28/23 06/28/23 hydrOXYzine pamoate [Hydroxyzine 50 mg PO Q6H PRN 06/28/23 06/28/23 Pamoate] methocarbamoL [Methocarbamol] 1,500 mg PO Q6H PRN 06/28/23 06/28/23 Thiamine [Vitamin B-1] 100 mg PO DAILY #30 tab 07/08/23 - Allergies Allergies/Adverse Reactions: Allergies Allergy/AdvReac Type Severity Reaction Status Date / Time No Known Drug Allergies Allergy Verified 05/22/23 21:10 - Social History Does the pt smoke?: Yes Smoking Status: Smoker current status unk Does the pt drink ETOH?: Yes Does the pt have substance abuse?: Yes - Immunizations Immunizations are current?: No Immunizations: Other immun not current - POLST Patient has POLST: No PD ED PE NORMAL - Vitals Vital signs reviewed: Yes - General General: Alert and oriented X 3, No acute distress, Well developed/nourished - Neuro Neuro: Alert and oriented X 3 - Psych Psych: Normal mood, Normal affect PD ED PE EXPANDED - Visual Whole body visual: 1 - abrasion (healing access site, superficial depth without erythema, tenderness, fluctuance, discharge) Results - Vitals Vitals: Oxygen O2 Source Room air PD Medical Decision Making - ED course Complexity details: considered differential, d/w patient ED course: right upper anterior chest wall bandage (clear tegaderm with underlying gauze) removed without difficulty. There is a healing access site underneath this bandage without erythema, tenderness, discharge. Bacitracin placed and bandaid placed over the area. Departure - Departure Disposition: 01 Home, Self Care Clinical Impression: Visit for wound check Condition: Good Comments: The site where you had your central line appears to be healing appropriately. There is no evidence of infection or any other complication. Change the bandage once per day: wash gently with soap and water, apply an antibiotic ointment (such as bacitracin) and replace the bandage (even a simple bandaid can be used) Forms: PCP List Discharge Date/Time: 07/10/23 05:25
== END 2023-07-10 05:25 | disposition home or self-care (01) ==
LOC: ED 05:02
DX: Z48.01 Encounter for change or removal of surgical wound dressing (principal); I10 Essential (primary) hypertension; Z79.899 Other long term (current) drug therapy
CPT/HCPCS: 99281; 99282

== ENCOUNTER 2023-07-18 10:33 | Emergency (ER) | payer MEDICAID ==
[2023-07-18 10:44] VITALS: BP 133/72; O2SAT 100
--- NOTE | 2023-07-18 11:43 | ED Physician Documentation ---
PD HPI HEAD INJURY - Stated complaint Stated Complaint: GLF - Chief complaint Chief Complaint: Laceration - Additional information Additional information: 28-year-old male presents emergency department for head laceration after mechanical ground-level fall. Patient reports that he was walking to work slipped and fell on a rock fell backwards and hit his head. He said when he grabbed the back of his hand he noted that there is blood he is not any blood thinners he denies any loss of consciousness no amnesia of the event, no nausea or vomiting since the event, no dizziness or other concerning symptoms. Patient says that his main concern is that it might need stitches but he is unable to look at the back of his head to evaluate if further intervention is needed. He states he does believe his tdap is up to date. PD PAST MEDICAL HISTORY - Past Medical History Past Medical History: Yes Cardiovascular: Hypertension Respiratory: None Neuro: None Endocrine/Autoimmune: None GI: None : None HEENT: None Psych: None Musculoskeletal: None Derm: None - Past Surgical History Past Surgical History: No - Present Medications Home Medications: Ambulatory Orders Medication Instructions Recorded Confirmed Gabapentin [Neurontin] 300 mg PO TID 06/27/23 06/27/23 LORazepam [Ativan] 1 mg PO UD 06/27/23 06/28/23 Acetaminophen [Tylenol] 1,000 mg PO Q6H PRN 06/28/23 06/28/23 Multivitamin [Theragran] 1 tab PO DAILY 06/28/23 06/28/23 Vitamin B Complex Vit C No.3 [B 1 cap PO DAILY 06/28/23 06/28/23 Complex with Vitamin C] cloNIDine [Catapres] 0.1 mg PO Q4H PRN 06/28/23 06/28/23 hydrOXYzine pamoate [Hydroxyzine 50 mg PO Q6H PRN 06/28/23 06/28/23 Pamoate] methocarbamoL [Methocarbamol] 1,500 mg PO Q6H PRN 06/28/23 06/28/23 Thiamine [Vitamin B-1] 100 mg PO DAILY #30 tab 07/08/23 - Allergies Allergies/Adverse Reactions: Allergies Allergy/AdvReac Type Severity Reaction Status Date / Time No Known Drug Allergies Allergy Verified 07/18/23 10:43 - Social History Does the pt smoke?: Yes Smoking Status: Current every day smoker Does the pt drink ETOH?: Yes Does the pt have substance abuse?: Yes - Immunizations Immunizations are current?: No Immunizations: Other immun not current - POLST Patient has POLST: No PD ED PE NORMAL - Vitals Vital signs reviewed: Yes - General General: Alert and oriented X 3, No acute distress, Well developed/nourished - HEENT HEENT: Atraumatic, PERRL, EOMI, Moist mucous membranes - Neck Neck: No bony TTP, C-Spine cleared by NEXUS criteria - Derm Derm: Other (3 cm superficial laceration to posterior head.Bleeding controlled.) - Extremities Extremities: No deformity - Neuro Neuro: Alert and oriented X 3, ore storage drier 2-12 intact, No motor deficit, No sensory deficit, Normal speech Eye Opening: Spontaneous Motor: Obeys Commands Verbal: Oriented GCS Score: 15 - Psych Psych: Normal mood Results - Vitals Vitals: Vital Signs - 24 hr 07/18/23 10:40 Temperature 36.0 C L Heart Rate 109 H Respiratory 20 Rate Blood Pressure 133/72 H O2 Saturation 100 Oxygen O2 Source Room air Procedures - Laceration (location) Scalp Posterior Length in cm: 3 Wound type: Linear, Superficial, Clean Neurovascular status: Sensory intact, Vascular intact Wound preparation: Irrigated copiously NS Skin layer closure: Dermabond Other: Patient tolerated well, Tetanus UTD PD Medical Decision Making - ED course ED course: Wound inspected under direct bright light with good visualization. Area with linear laceration across soft tissue. No overt foreign body. Area hemostatic. Neurovascular exam congruent with above. Area extensively irrigated with sterile normal saline. Laceration repaired in simple fashion with dermabond (please see procedure note for further details). Patient tolerated procedure well. Cautious return precautions discussed w/ full understanding. Wound care discussed. Departure - Departure Disposition: 01 Home, Self Care Clinical Impression: Ground-level fall Condition: Good Instructions: ED Laceration Facial Skin Glue Comments: Come back for any signs of infection which would include: Redness, swelling, drainage, increased pain, or fevers. You can wash it soap and water tomorrow. Please come back to the emergency department if you are starting to develop any nausea vomiting, changes in vision or any other concerning symptoms. Forms: PCP List Discharge Date/Time: 07/18/23 12:05
== END 2023-07-18 12:05 | disposition home or self-care (01) ==
LOC: ED 10:33
DX: S01.01XA Laceration without foreign body of scalp, initial encounter (principal); W01.198A Fall on same level from slipping, tripping and stumbling with subsequent striking against other object, initial encounter; Y93.01 Activity, walking, marching and hiking; I10 Essential (primary) hypertension; F17.200 Nicotine dependence, unspecified, uncomplicated
CPT/HCPCS: 12002; 99281; 99283

== ENCOUNTER 2023-08-16 17:26 | Emergency (ER) | payer MEDICAID ==
[2023-08-16 17:39] VITALS: BP 145/79; O2SAT 100
--- NOTE | 2023-08-16 18:45 | ED Physician Documentation ---
History of Present Illness - Stated complaint Stated Complaint: RT FOOT PX - Chief complaint Chief Complaint: Trauma Ext - History obtained from History obtained from: Patient - History of Present Illness Pain level max: 5 Pain level now: 5 - Additonal information Additional information: Patient is a 28-year-old male who presents to the emergency department complaining of pain to his right foot. He states has been ongoing for about a month. He does not recall any specific injury but states that he does fall frequently. He states he has been told he has some neuropathy in his foot. Worse with movement, better with rest. The pain is mainly along the top of the foot. No swelling. No redness. He states that he works [employer]. Review of Systems Constitutional: denies: Fever, Chills Musculoskeletal: denies: Neck pain PD PAST MEDICAL HISTORY - Past Medical History Cardiovascular: Hypertension Respiratory: None Neuro: None Endocrine/Autoimmune: None GI: None : None HEENT: None Psych: None Musculoskeletal: None Derm: None - Past Surgical History Past Surgical History: No - Present Medications Home Medications: Ambulatory Orders Medication Instructions Recorded Confirmed Acetaminophen [Tylenol] 1,000 mg PO Q6H PRN 06/28/23 08/16/23 - Allergies Allergies/Adverse Reactions: Allergies Allergy/AdvReac Type Severity Reaction Status Date / Time No Known Drug Allergies Allergy Verified 08/16/23 17:37 - Social History Does the pt smoke?: Yes Smoking Status: Current every day smoker Does the pt drink ETOH?: Yes Does the pt have substance abuse?: No Substance Use and Type: Marijuana - Immunizations Immunizations are current?: No Immunizations: Other immun not current - POLST Patient has POLST: No PD ED PE NORMAL - Vitals Vital signs reviewed: Yes - General General: Alert and oriented X 3, No acute distress - Derm Derm: Warm and dry - Extremities Extremities: Other (R foot - Normal examination of the right foot. No swelling. No erythema. No bony tenderness over any of the foot. No deformity. Neurovascular intact. No skin breakdown. Normal examination of the ankle as well.) - Neuro Neuro: Alert and oriented X 3 Results - Vitals Vitals: Vital Signs - 24 hr 08/16/23 17:29 Temperature 36.1 C L Heart Rate 101 H Respiratory 18 Rate Blood Pressure 145/79 H O2 Saturation 100 Oxygen O2 Source Room air - Rads (name of study) R foot xray Relevant Findings:: Final report received, See rad report PD Medical Decision Making - ED course Complexity details: reviewed results, considered differential, d/w patient ED course: No acute findings on x-ray of the right foot. Patient eloped from the emergency department prior to me reviewing his results with him. There does not appear to be an emergency medical condition at this time. Patient did not sign out AMA with staff, he merely walked out. Departure - Departure Disposition: Left Prior to Disposition Clinical Impression: Foot pain, right Condition: Stable Forms: PCP List Discharge Date/Time: 08/16/23 19:04
--- NOTE | 2023-08-16 18:47 | XRAY Report ---
PROCEDURE: Foot 3+V RT INDICATIONS: R foot pain TECHNIQUE: 3 views of the foot were acquired. COMPARISON: None. FINDINGS: Bones: No displaced fracture or dislocation. Soft tissues: No suspicious calcifications. IMPRESSION: No acute radiographic abnormality. If there is high concern for occult injury, consider repeat radiog jovan or cross-sectional imaging. Reviewed by: Jarvis Julien MD on 08/16/2023 6:46 PM PST Approved by: Jarvis Julien MD on 08/16/2023 6:46 PM PST Station ID: [id number]
== END 2023-08-16 19:04 | disposition home or self-care (01) ==
LOC: ED 17:26
DX: M79.671 Pain in right foot (principal); I10 Essential (primary) hypertension; F17.200 Nicotine dependence, unspecified, uncomplicated; Z53.21 Procedure and treatment not carried out due to patient leaving prior to being seen by health care provider
CPT/HCPCS: 99281; 99282

== ENCOUNTER 2023-09-09 07:42 | Emergency (ER) | payer MEDICAID ==
[2023-09-09 07:55] VITALS: BP 155/92; O2SAT 99
== END 2023-09-09 09:03 | disposition left against medical advice (07) ==
LOC: ED 07:42
DX: Z53.21 Procedure and treatment not carried out due to patient leaving prior to being seen by health care provider (principal)

== ENCOUNTER 2023-10-26 15:54 | Emergency (ER) | payer MEDICAID | END 2023-10-26 16:34 | disposition left against medical advice (07) | LOC: ED 15:54 | DX: Z53.21 Procedure and treatment not carried out due to patient leaving prior to being seen by health care provider (principal) ==

== ENCOUNTER 2023-10-28 21:30 | Emergency (ER) | payer MEDICAID ==
[2023-10-28 21:42] VITALS: BP 127/87; O2SAT 98
== END 2023-10-28 23:25 | disposition left against medical advice (07) ==
LOC: ED 21:30
DX: Z53.21 Procedure and treatment not carried out due to patient leaving prior to being seen by health care provider (principal)

== ENCOUNTER 2024-01-25 09:46 | Emergency (ER) | payer MEDICAID ==
[2024-01-25 09:59] VITALS: BP 120/90; O2SAT 100
== END 2024-01-25 11:52 | disposition left against medical advice (07) ==
LOC: ED 09:46
DX: Z53.21 Procedure and treatment not carried out due to patient leaving prior to being seen by health care provider (principal)

== ENCOUNTER 2024-01-25 12:11 | Emergency (ER) | payer MEDICAID | END 2024-01-25 12:30 | disposition left against medical advice (07) | LOC: ED 12:11 | DX: Z53.21 Procedure and treatment not carried out due to patient leaving prior to being seen by health care provider (principal) ==

== ENCOUNTER 2024-03-02 07:49 | Outpatient (CLI) | payer MEDICAID | END 2024-03-02 07:50 | disposition home or self-care (01) | LOC: RT 07:49 | DX: R06.02 Shortness of breath (principal); R05.3 Chronic cough; F17.210 Nicotine dependence, cigarettes, uncomplicated | CPT/HCPCS: 94010 ==